=== PATIENT | male | born 1975 | race Caucasian/White ===

== ENCOUNTER 2017-03-19 15:56 | Observation (INO) | payer MEDICARE, OTHER ==
[~2017-03-19 15:56] MED LIST: HUMALOG SQ; LANTUS; LEVE500 PO; OXYCODONE IR; XANA2TAB2 PO
[2017-03-19 19:50] VITALS: BP 128/75; PULSE 64; RESP 20; TEMP 98.7; O2SAT 100
[2017-03-19] MEDS ORDERED: LEVEMIR SQ (20:34)
[2017-03-19 20:45] LABS: CREATINE KINASE 30 U/L (39-308)
[2017-03-19] MEDS ORDERED: INSULIN DETEMIR 100 UNITS/ML VIAL SQ SCH ×2 (21:00→21:16)
[2017-03-19] MEDS ORDERED: levETIRAcetam 500 MG TAB PO SCH (21:14)
[2017-03-19] MEDS ORDERED: ALPRAZolam 1 MG TAB PO PRN (21:15)
[2017-03-19] MEDS ORDERED: GLUCAGON 1 MG/ML VIAL OTHER PRN ×2 (21:30)
[2017-03-19] MEDS ORDERED: DEXTROSE 50% IN WATER 50 ML VIAL(D50) IV PUSH PRN (21:30)
[2017-03-19] MEDS: levETIRAcetam 500 MG TAB PO SCH (21:51)
[2017-03-19] MEDS: ALPRAZolam 1 MG TAB PO PRN (21:53)
[2017-03-19 23:44] VITALS: BP 99/51; PULSE 84; RESP 20; TEMP 98.6; O2SAT 96
[2017-03-20] VITALS (9 sets, daily range): BP systolic 102–144; BP diastolic 72–94; PULSE 69–105; RESP 18–20; TEMP 97.4–98.5; O2SAT 94–97
[2017-03-20] MEDS ORDERED: HIGH DOSE INSULIN NOVOLOG SUPPLEMENTAL SCALE SQ SCH (07:00)
[2017-03-20] MEDS: HIGH DOSE INSULIN NOVOLOG SUPPLEMENTAL SCALE SQ SCH ×2 (07:00→11:00)
[2017-03-20] MEDS: levETIRAcetam 500 MG TAB PO SCH (08:25)
--- NOTE | 2017-03-20 09:09 | HHI.HP ---
HPI Primary Care Physician Non-Staff Chief Complaint Chest pain History of Present Illness Mr. Sanchez is a 41-year-old male patient with a known medical history of seizures, diabetes, hyperlipidemia, pacemaker placement and previous DVT who presented to the ED with complaints of palpitations and diaphoresis. Patient states that he woke up yesterday morning with sudden diaphoresis and feelings of his heart bounding that lasted roughly 2 hours. He states that he also noticed a sharp pain in his chest around the area of his pacemaker which radiated down his left arm with associated numbness in his fingers lasting roughly 45 minutes. Denies any aggravating or relieving factors. Denies any associated nausea. Admits to associated lightheadedness, shortness of breath and pain with breathing. No particular movements or positions make pain better or worse. He does admit to a pacemaker placed in 2014 due to frequent syncopal episodes. At that time patient developed a DVT and was on Coumadin therapy which has now been stopped. Patient currently denies any chest discomfort. No chest pain overnight. Review of Systems HEENT: COMPLAINS OF: Lightheadedness Cardiovascular: COMPLAINS OF: Chest pain, Palpitations Neurologic: COMPLAINS OF: Tingling or numbness (left numbness in fingers) diaphoresis Past Family Social History Allergies: Coded Allergies: Nitroglycerin (Verified Allergy, Unknown, 01/30/17) Vancomycin (Verified Allergy, Unknown, 01/30/17) Past Medical History Seizure disorder, last seizure > 5 years ago. Diabetes, on home insulin therapy. 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 Keppra (Levetiracetam) 500 Mg Tab 500 Mg PO BID Active Ordered Medications Current Medications Medications (Trade) Dose Ordered Sig/Fawad Route Start Time Stop Time Status Last Admin (Xanax) 2 mg Q8H PRN PO 03/19/17 21:30 03/19/17 21:53 (Keppra) 500 mg BID PO 03/19/17 21:00 03/20/17 08:25 (Roxicodone) 30 mg Q4H PRN PO 03/19/17 21:30 03/20/17 06:28 (D50w (Vial) Inj) 50 ml UNSCH PRN IV PUSH 03/19/17 21:30 (Glucagon Inj) 1 mg UNSCH PRN OTHER 03/19/17 21:30 (Levemir Inj) 40 units HS SQ 03/19/17 21:00 03/19/17 21:00 Family History Paternal medical history significant for DC at the age of 3737 years old. Patient' s brother also had an DC at the age of 3535 years old. Social History Denies any current or past tobacco use. Denies any alcohol use. Denies any illicit drug use. Past cardiac testing Had a stress test > 5 years ago. Pacemaker placement 2015 due to frequent syncopal episodes. Physical Exam Vital Signs Vital Signs Date Time Temp Pulse Resp B/P Pulse Ox O2 Delivery O2 Flow Rate FiO2 03/20/17 07:27 97.9 78 18 102/72 97 03/20/17 06:31 81 18 121/91 03/20/17 05:31 75 03/20/17 04:12 98.5 81 20 117/81 03/20/17 03:20 18 03/20/17 02:15 144/94 03/20/17 00:00 105 03/19/17 23:44 98.6 84 20 99/51 96 03/19/17 19:50 98.7 64 20 128/75 100 Physical Exam GENERAL: Alert WN, WD, NAD, pleasant, male HEAD: NC, AT NECK: Supple, no masses, trachea midline CV: Patient rhythm, no murmur, rub, or gallop, no JVD, S1-S2 no S3-S4. RESP: Clear lungs throughout bilateral, no crackles, wheeze, rhonchi, symmetrical chest rise, nonlabored, able to speak in full sentences ABD: Soft, NT, ND, no masses, positive bowel tones EXT: Pulses +24, no dependent edema MS: Normal tone 4 extremities, nontender, no obvious deformities, full range of motion NEURO: CN II through CN XII grossly intact, motor strength 5/5, gait WNL PSYCH: A+O 3, pleasant affect, appropriate speech, appropriate mood and affect , insight and judgment SKIN: Normal turgor, normal texture Laboratory Laboratory Tests Test 03/19/17 20:00 Total Creatine Kinase 30 Troponin I LESS THAN 0.02 Course EKG Sinus rhythm Assessment and Plan Assessment and Plan #1 Atypical chest pain - admitted to chest pain center. Ruled out with 3 sets of EKGs, cardiac enzymes, and monitored overnight. All unremarkable. Seen and evaluated by Dr. Emily Mcconnell. Plan will be to perform a Nuclear ETT today for further evaluation. #2 Diabetes - Will start on sliding scale insulin and cover as needed. #3 Seizure disorder - Resume home medications. Patient is stable at this time and agreeable to plan. Angie Kiran Mar 20, 2017 09:09
--- NOTE | 2017-03-20 09:43 | EKG ---
Date Performed: 03/19/2017 Time Performed: 19:59:26 PTAGE: 41 years EKG: ELECTRONIC ATRIAL PACEMAKER ABNORMAL RHYTHM ECG Since PREVIOUS TRACING , no significant change noted DOCTOR: Emily Mcconnell Interpretating Date/Time 03/20/2017 09:42:38
--- NOTE | 2017-03-20 09:44 | EKG ---
Date Performed: 03/19/2017 Time Performed: 17:06:27 PTAGE: 41 years EKG: ELECTRONIC ATRIAL PACEMAKER ABNORMAL RHYTHM ECG Since PREVIOUS TRACING , no significant change noted DOCTOR: Emily Mcconnell Interpretating Date/Time 03/20/2017 09:43:54
[2017-03-20] MEDS: ALPRAZolam 1 MG TAB PO PRN (11:02)
[2017-03-20] MEDS ORDERED: REGADENOSON INJ 0.4 MG/5 ML SYR ONE (12:34)
--- NOTE | 2017-03-20 14:11 | RADRPT ---
EXAM DATE/TIME: 03/20/2017 11:35 [facility] COMPARISON: CHEST SINGLE AP, March 19, 2017, 14:19. INDICATIONS : Chest pain. Angina. DOSE: 11.0 mCi Tc99m Myoview at stress. 35.0 mCi Tc99m Myoview at rest. 0.4 mg Lexiscan STRESS SYMPTOMS: Dyspnea, chest pain, and facial flush. EJECTION FRACTION: 55 % MEDICAL HISTORY : Diabetes mellitus type 2. SURGICAL HISTORY : Pacemaker. Fusion, lumbar. Fusion, cervical. ENCOUNTER: Initial ACUITY: 1 day PAIN SCALE: 5/10 LOCATION: chest TECHNIQUE: The patient underwent pharmacologic stress with infusion of prescribed dose. Continuous ECG tracing was monitored during stress. Gated SPECT imaging was performed after stress and conventional SPECT i maging was performed at rest. The examination was performed on a SPECT/CT scanner, both attenuation and non-corrected datasets were reviewed. FINDINGS: DISTRIBUTION: The maximum perfused segment at stress is in the inferior wall. PERFUSION STUDY: The pattern of perfusion at stress is within normal limits. No fixed or reversible perfusion defect i s identified. GATED STUDY: There is intact wall motion and thickening without hypokinetic or dyskinetic segments. CONCLUSION: 1. No fixed or reversible perfusion defect is identified in the left ventricle. 2. Normal left ventricle wall motion and ejection fraction. RISK CATEGORY: Low (<1% Annual Mortality Rate) Valdez Rock MD on March 20, 2017 at 14:06 Board Certified Radiologist. This report was verified electronically.
--- NOTE | 2017-03-20 14:30 | HHI.DCPOC ---
Discharge Care Plan Diagnosis: (1) Atypical chest pain (2) Cardiac pacemaker (3) Type 2 diabetes mellitus (4) Heart palpitations Goals to Promote Your Health * To prevent worsening of your condition and complications * To maintain your health at the optimal level Directions to Meet Your Goals Take your medications as prescribed Follow your dietary instruction Follow activity as directed Keep your appointments as scheduled Take your immunizations and boosters as scheduled If your symptoms worsen call your PCP, if no PCP go to Urgent Care Center or Emergency Room Smoking is Dangerous to Your Health. Avoid second hand smoke Call the 24-hour hour crisis hotline for domestic abuse at Angie Kiran Mar 20, 2017 14:30
--- NOTE | 2017-03-20 18:04 | TR ---
Date Performed: 03/20/2017 Time Performed: 12:39:23 DOCTOR: Emily Mcconnell DRUG LIST: CLINICAL HISTORY: REASON FOR TEST: CHEST PAIN REASON FOR ENDING: OBSERVATION: CONCLUSION: Lexiscan stress test was performed under standard four minute protocol. Radionuclid e was injected one minute prior to ending the test. No electrocardiographic abormalities were present to suggest ischemia. Nuclear imaging and interpretation are pending. COMMENTS:
== END 2017-03-20 17:09 | disposition home or self-care (01) ==
LOC: NEDDLT 15:56 → NEPGCP 18:16
PROVIDERS: ADMIT Internal Medicine Cardiovascular Disease; ATTEND Internal Medicine Cardiovascular Disease
DX: R07.89 Other chest pain (principal); E11.9 Type 2 diabetes mellitus without complications; R00.2 Palpitations; R06.02 Shortness of breath; R42 Dizziness and giddiness; R20.0 Anesthesia of skin; G40.909 Epilepsy, unspecified, not intractable, without status epilepticus; E78.5 Hyperlipidemia, unspecified; R94.31 Abnormal electrocardiogram [ECG] [EKG]; G89.29 Other chronic pain; Z95.0 Presence of cardiac pacemaker; Z79.4 Long term (current) use of insulin; Z86.718 Personal history of other venous thrombosis and embolism; Z86.711 Personal history of pulmonary embolism; Z79.899 Other long term (current) drug therapy
CPT/HCPCS: 71010; 78452; 80053; 82550; 82948; 83690; 83735; 83880; 84484; 85025; 85379; 85610; 85730; 93005; 93017; 99285; A9502; G0378; J2785; 99281

== ENCOUNTER 2017-04-07 11:55 | Observation (INO) | payer MEDICARE, OTHER ==
[~2017-04-07] VITALS: Ht 188 cm; Wt 124.0 kg
[~2017-04-07 11:55] MED LIST changes: -LANTUS; +LEVEMIR SQ
[2017-04-07 12:07] VITALS: O2SAT 100
[2017-04-07] MEDS ORDERED: SODIUM CHLORIDE 0.9% FLUSH 10 ML FLUSH IVF PRN (12:15)
--- NOTE | 2017-04-07 12:23 | PD ---
HPI Chief Complaint: Neuro Symptoms/ Deficits Time Seen by Provider: 12:18 Travel History International Travel<30 days: No Contact w/Intl Traveler<30days: No Traveled to known affect area: No History of Present Illness HPI Patient comes in complaining of weakness and tingling in his left upper and lower extremity he awoke with yesterday. Patient denies any headache, chest pain, shortness of breath, nausea, vomiting, abdominal pain, loss change in bowel or bladder, change in vision, lightheadedness, fevers, or previous episodes like this. Patient reports history of seizure and diabetes. Patient was seen approximately an hour ago at [facility] for same complaint however walked out AGAINST MEDICAL ADVICE prior to evaluation being completed. Patient states he did this after getting into an argument with the nurse. Patient states he is unable take aspirin, Tylenol, or NSAIDs at the advice of his GI doctor secondary to his stomach and pancreas. Patient reported a tingling sensation in his left hand and radiates proximally. Patient denies anything making this better or worse. PFSH Past Medical History Heart Rhythm Problems: Yes Cardiac Catheterization: No Cardiovascular Problems: Yes High Cholesterol: No Congestive Heart Failure: No Diabetes: Yes Patient Takes Glucophage: Yes Past Surgical History Coronary Artery Bypass Graft: No Pacemaker: Yes Family History Family Myocardial Infarction: Yes Social History Alcohol Use: No Tobacco Use: No Substance Use: No Allergies-Medications (Allergen,Severity, Reaction): Coded Allergies: nitroglycerin (Unverified Allergy, Unknown, 04/03/17) vancomycin (Unverified Allergy, Unknown, 04/03/17) Reported Meds & Prescriptions Reported Meds & Active Scripts Active Reported Levemir Inj (Insulin Detemir) 1,000 unit/ 10 ML Vial 40 Units SQ HS Do not mix with any other Insulin. [Oxycodone Ir] 30 Mg Q4HR Xanax (Alprazolam) 2 Mg Tab 2 Mg PO Q8H PRN Humalog Inj (Insulin Human Lispro) 1,000 Unit/10 Ml Vial SQ ACHS Max dose at bedtime:( )units; sugars < 70,(0)units; sugars 150-199,(5)units; sugars 200-249,(10)units; sugars 250-299,(15)units; sugars 300-349,(20)units; sugars more than 349,(25)units. Keppra (Levetiracetam) 500 Mg Tab 500 Mg PO BID Review of Systems Except as stated in HPI: all other systems reviewed are Neg Physical Exam Narrative GENERAL: Well-developed, overly nourished, in no acute distress, and non-ill appearing. SKIN: Focused skin assessment warm and dry. HEAD: Atraumatic. Normocephalic. EYES: Pupils equal and round. EOMI. No scleral icterus. No injection or drainage. ENT: No nasal bleeding or discharge. Mucous membranes pink and moist. NECK: Trachea midline. No JVD. Supple. No nuclear rigidity. CARDIOVASCULAR: Regular rate and rhythm. No murmur appreciated. RESPIRATORY: No accessory muscle use. No respiratory distress. Clear to auscultation. Breath sounds equal bilaterally. GASTROINTESTINAL: Abdomen soft, non-tender, nondistended, and no guarding. Hepatic and splenic margins not palpable. Normal bowel sounds 4. No pulsatile mass. MUSCULOSKELETAL: No obvious deformities. No clubbing. No cyanosis. No edema. Full range of motion. Shoulder:FROM equal BL with passive flexion, extension, Abduction, Adduction, internal/external rotation, and pronation/supination. Sensation BL deltoid muscles, patient reports decreased on the left compared to right. Pulses equal BL distal to injury. Capillary refill less than 2 seconds distal to injury and equal BL. FROM distal to injury and equal BL. Strength distal to injury equal BL. NV intact distal to injury equal BL. Flexion and extension of thumb equal BL. Equal strength and movement with abduction/ adductions of BL fingers. [employer] strength equal BL, the patient reports pain with gripping of the left hand. Plantar and dorsiflexion 5 out of 5 and equal bilaterally. Patient reports sensation intact or first web space and bilateral lower extremity but reports sensation is slightly decreased on the left compared to the right. NEUROLOGICAL: Awake and alert. No obvious cranial nerve deficits. Motor grossly within normal limits. Normal speech. No facial drooping. No deviation of the tongue. Smiles equal bilaterally. Equal rise and fall the eyebrows. No pronator drift. PSYCHIATRIC: Appropriate mood and affect; insight and judgment normal. Data Data Last Documented VS Vital Signs Date Time Temp Pulse Resp B/P Pulse Ox O2 Delivery O2 Flow Rate FiO2 04/07/17 12:30 97.6 78 16 123/87 97 Room Air Orders Electrocardiogram (04/07/17 12:11) Prothrombin Time / Inr (Pt) (04/07/17 12:11) Act Partial Throm Time (Ptt) (04/07/17 12:11) Complete Blood Count With Diff (04/07/17 12:11) Basic Metabolic Panel (Bmp) (04/07/17 12:11) Creatine Kinase (Cpk) (04/07/17 12:11) Troponin I (04/07/17 12:11) Ct Brain W/O Iv Contrast(Rout) (04/07/17 12:11) Ecg Monitoring (04/07/17 12:11) Iv Access Insert/Monitor (04/07/17 12:11) Oximetry (04/07/17 12:11) Sodium Chloride 0.9% Flush (Ns Flush) (04/07/17 12:15) Drug Screen, Random Urine (04/07/17 12:18) Vascular Access Team Consult/P PRN (04/07/17 12:35) Vascular Poc Ultrasound (04/07/17 ) Morphine Inj (Morphine Inj) (04/07/17 15:15) Ondansetron Inj (Zofran Inj) (04/07/17 15:15) Admit Order (Ed Use Only) (04/07/17 15:09) Labs Laboratory Tests Test 04/07/17 04/07/17 12:55 13:50 White Blood Count 7.0 TH/MM3 Red Blood Count 5.18 MIL/MM3 Hemoglobin 14.1 GM/DL Hematocrit 41.7 % Mean Corpuscular Volume 80.4 FL Mean Corpuscular Hemoglobin 27.1 PG Mean Corpuscular Hemoglobin 33.7 % Concent Red Cell Distribution Width 13.6 % Platelet Count 297 TH/MM3 Mean Platelet Volume 6.5 FL Neutrophils (%) (Auto) 62.4 % Lymphocytes (%) (Auto) 29.2 % Monocytes (%) (Auto) 6.6 % Eosinophils (%) (Auto) 1.3 % Basophils (%) (Auto) 0.5 % Neutrophils # (Auto) 4.4 TH/MM3 Lymphocytes # (Auto) 2.0 TH/MM3 Monocytes # (Auto) 0.5 TH/MM3 Eosinophils # (Auto) 0.1 TH/MM3 Basophils # (Auto) 0.0 TH/MM3 CBC Comment DIFF FINAL Differential Comment Prothrombin Time 10.4 SEC Prothromb Time International 0.9 RATIO Ratio Activated Partial 28.2 SEC Thromboplast Time Sodium Level 135 MEQ/L Potassium Level 3.8 MEQ/L Chloride Level 102 MEQ/L Carbon Dioxide Level 24.4 MEQ/L Anion Gap 9 MEQ/L Blood Urea Nitrogen 15 MG/DL Creatinine 0.75 MG/DL Estimat Glomerular Filtration 114 ML/MIN Rate Random Glucose 233 MG/DL Calcium Level 8.7 MG/DL Total Creatine Kinase 46 U/L Troponin I LESS THAN 0.02 NG/ML Urine Opiates Screen NEG Urine Barbiturates Screen NEG Urine Amphetamines Screen NEG Urine Benzodiazepines Screen POS Urine Cocaine Screen NEG Urine Cannabinoids Screen NEG MDM Medical Decision Making Medical Screen Exam Complete: Yes Emergency Medical Condition: Yes Interpretation(s) EKG reviewed by Dr. Nicole shows normal sinus rhythm with ventricular rate of 84. No STEMI. CT head read by the radiologist shows: No acute intracranial abnormality. Differential Diagnosis CVA, TIA, weakness, electrolyte abnormality, other Narrative Course Patient seen and examined. IV was established. Patient was placed on his quality assurance monitor chassis. Initial laboratory and radiological studies were ordered. Patient's [place] E force was reviewed shows patient receiving multiple controlled substances from multiple providers over the past several months. January patient received 268 oxycodone, 90 Adderall, 37, and 60 Xanax. February patient received 250 oxycodone, 90 Adderall, and 120 Xanax. In March patient' s has so far been reported to the E force 90 oxycodone and 30 Xanax. Discussed all findings and plan care of patient, who is agreeable for admission. All questions were answered. Discussed patient with Dr. Nicole, who is in agreement with plan of care and disposition. Discussed patient with hospitalist who is agreeable to admit the patient. Patient remained stable throughout ED course. Physician Communication Physician Communication [phone] Hand, who is agreeable to admit the patient. Diagnosis Primary Impression: Left-sided weakness Admitting Information Admitting Physician Requests: Admit Condition: Stable Jose D Martinez Apr 07, 2017 12:23
[2017-04-07 12:30] VITALS: BP 123/87; PULSE 78; RESP 16; TEMP 97.6; O2SAT 97
[2017-04-07 13:10] LABS: AUTOMATED NEUTROPHIL # 4.4 TH/MM3 (1.8-7.7); BASOPHIL % 0.5 % (0.0-2.0); EOSINOPHIL # 0.1 TH/MM3 (0-0.4); EOSINOPHIL % 1.3 % (0.0-4.0); HEMATOCRIT 41.7 % (39.0-51.0); HEMO FLAGS DIFF FINAL; LYMPH % 29.2 % (9.0-44.0); MEAN CELL VOLUME 80.4 FL (80.0-100.0); MEAN CORPUSCULAR HEMOGLOBIN 27.1 PG (27.0-34.0); MEAN CORPUSCULAR HGB CONC 33.7 % (32.0-36.0); MONO % 6.6 % (0.0-8.0); NEUT % 62.4 % (16.0-70.0); PLATELET COUNT 297 TH/MM3 (150-450); RED BLOOD COUNT 5.18 MIL/MM3 (4.50-5.90); RED CELL DISTRIBUTION WIDTH 13.6 % (11.6-17.2)
[2017-04-07 13:17] LABS: APTT (PATIENT) 28.2 SEC (24.3-30.1); INTERNATIONAL NORMALIZED RATIO 0.9 RATIO; PROTHROMBIN TIME - PATIENT 10.4 SEC (9.8-11.6)
[2017-04-07 13:24] LABS: ANION GAP 9 MEQ/L (5-15); BICARBONATE 24.4 MEQ/L (21.0-32.0); BLOOD UREA NITROGEN 15 MG/DL (7-18); CHLORIDE 102 MEQ/L (98-107); GLOMERULAR FILTRATION RATE 114 ML/MIN (>89); POTASSIUM 3.8 MEQ/L (3.5-5.1); SODIUM (NA) 135 MEQ/L (136-145)
[2017-04-07 13:29] LABS: CREATINE KINASE 46 U/L (39-308)
--- NOTE | 2017-04-07 14:21 | RADRPT ---
EXAM DATE/TIME: 04/07/2017 14:12 [facility] COMPARISON: No previous studies available for comparison. INDICATIONS : Left upper and lower extremity tingling and weakness since yesterday RADIATION DOSE: 37.76 CTDIvol (mGy) MEDICAL HISTORY : Cardiovascular disease. Diabetes mellitus type 1. SURGICAL HISTORY : None. ENCOUNTER: Initial ACUITY: 2 days PAIN SCALE: 0/10 LOCATION: cranial TECHNIQUE: Multiple contiguous axial images were obtained of the head. Using automated exposure control and adj ustment of the mA and/or kV according to patient size, radiation dose was kept as low as reasonably a chievable to obtain optimal diagnostic quality images. DICOM format image data is available electro nically for review and comparison. FINDINGS: CEREBRUM: The ventricles are are slightly asymmetric but still within normal limits. No evidence of midline sh ift, mass lesion, hemorrhage or acute infarction. No extra-axial fluid collections are seen. POSTERIOR FOSSA: The cerebellum and brainstem are intact. The 4th ventricle is midline. The cerebellopontine angle i s unremarkable. EXTRACRANIAL: The visualized portion of the orbits is intact. SKULL: The calvaria is intact. No evidence of skull fracture. CONCLUSION: No acute intracranial abnormality. Leon Qureshi MD on April 07, 2017 at 14:19 Board Certified Radiologist. This report was verified electronically.
[2017-04-07] MEDS ORDERED: ONDANSETRON HCL 4 MG/2 ML VIAL IV PUSH ONE (15:15)
[2017-04-07] MEDS ORDERED: MORPHINE SULFATE 4 MG/ML INJ IV PUSH ONE (15:15)
[2017-04-07] MEDS ORDERED: BISACODYL 10 MG SUPP RECTAL PRN (15:30)
[2017-04-07] MEDS ORDERED: MORPHINE SULFATE 4 MG/ML INJ IV PRN (15:30)
[2017-04-07] MEDS ORDERED: NALOXONE HCL 0.4 MG/ML AMP IV PRN (15:30)
[2017-04-07] MEDS ORDERED: HYDROmorphone HCL PF 1 MG/ML VIAL IV PRN (15:30)
[2017-04-07] MEDS ORDERED: DEXTROSE 50% IN WATER 50 ML VIAL(D50) IV PUSH PRN (15:30)
[2017-04-07] MEDS ORDERED: ACETAMINOPHEN 325 MG TAB PO PRN (15:30)
[2017-04-07] MEDS ORDERED: PROCHLORPERAZINE 25 MG SUPP RECTAL PRN (15:30)
[2017-04-07] MEDS ORDERED: GLUCAGON 1 MG/ML VIAL OTHER PRN ×2 (15:30)
[2017-04-07] MEDS ORDERED: LACTULOSE SYRUP 20 GM/30 ML CUP PO PRN (15:30)
[2017-04-07] MEDS ORDERED: SODIUM CHLORIDE 0.9% FLUSH 5 ML FLUSH IV FLUSH PRN (15:30)
[2017-04-07] MEDS ORDERED: SENNOSIDES 8.6 MG TAB PO PRN (15:30)
[2017-04-07] MEDS ORDERED: ONDANSETRON HCL 4 MG/2 ML VIAL IVP PRN (15:30)
[2017-04-07] MEDS ORDERED: DEXTROSE 50% IN WATER 50 ML VIAL(D50) IV PRN (15:30)
[2017-04-07] MEDS: ENOXAPARIN SODIUM 40 MG/0.4 ML SYRINGE SQ SCH (15:30)
[2017-04-07] MEDS ORDERED: SODIUM CHLORIDE 0.9% FLUSH 10 ML FLUSH IV FLUSH PRN (15:30)
[2017-04-07] MEDS ORDERED: MAGNESIUM HYDROXIDE SUSP 30 ML CUP PO PRN (15:30)
[2017-04-07] MEDS: INSULIN ASPART SUPPLEMENTAL SCALE SQ SCH ×2 (16:00→21:00)
--- NOTE | 2017-04-07 16:11 | HHI.HP ---
HPI Service [facility] Hospitalists Primary Care Physician Non-Staff Admission Diagnosis left-sided weakness r/o CVA Diagnoses: (1) Left-sided weakness Diagnosis: Principal (2) Weakness Diagnosis: Principal (3) Cardiac pacemaker Diagnosis: Secondary (4) Heart palpitations Diagnosis: Secondary (5) Type 2 diabetes mellitus Diagnosis: Secondary (6) Atypical chest pain Diagnosis: Secondary (7) Back pain, chronic Diagnosis: Secondary Chief Complaint: Left-sided numbness/tingling and weakness Travel History International Travel<30 Days: No Contact w/Intl Traveler <30 Da: No Traveled to Known Affected Are: No History of Present Illness This is a 42-year-old male with a past medical history significant for degenerative disc disease of cervical and lumbar spine status post previous fusions, seizure disorder, diabetes, pancreatitis, dyslipidemia and history of pacemaker implantation in 2014 with complication of a PE/DVT who presents to [facility] ED with complaints of sudden onset of left upper and lower extremity weakness with numbness and tingling since yesterday morning. Patient states that his symptoms have been progressive prompting him to come in to the ED. He was seen in the [place] ED earlier today but left AGAINST MEDICAL ADVICE. Patient denies any associated headache, dizziness, lightheadedness, presyncope/syncopal episode, diaphoresis or vision changes. He denies any facial droop or slurred speech. He states his last seizure was 5-6 years ago. He denies any bowel or bladder incontinence. Patient states he is unable to take any NSAID or Tylenol as advised by his GI physician secondary to pancreas and stomach issues. Patient denies any recent illness. He denies any fever or chills. He denies any chest pain or shortness of breath. He denies any nausea , vomiting or abdominal pain. He denies any complaints of constipation, diarrhea, dysuria or hematuria. He does report he had some palpitations for one day last week that resolved on their own. EKG done in [place] showed normal sinus rhythm with no evidence of STEMI or ischemia. CT of the head was obtained which showed no acute intracranial abnormality. Per ED note, patient' s E force revealed patients receiving multiple controlled substances from multiple providers. In January he received 268 oxycodone, 90 Adderall and 60 Xanax. In February patient received 250 oxycodone, 90 Adderall and 120 Xanax. So far in March, patient has received 90 oxycodone and 30 Xanax. Additionally, patient informs me that he had a recent rotator cuff repair surgery with concomitant bone biopsy for suspicious lesion and was recently told that he has cancer. He has a follow-up appointment with his oncologist next week in [place]. Going around to multiple hospitals in the [facility] as well as now appears to be [facility] also. Patient had chronic neck issues and is had shoulder surgery as well as back surgery which might explain some of this numbness Review of Systems Constitutional: DENIES: Diaphoretic episodes, Fatigue, Fever, Weight gain, Weight loss, Chills, Dizziness, Change in appetite Endocrine: DENIES: Heat/cold intolerance, Polydipsia, Polyuria Eyes: DENIES: Blurred vision, Diplopia, Eye inflammation, Eye pain, Vision loss Ears, nose, mouth, throat: DENIES: Tinnitus, Hearing loss, Vertigo, Nasal discharge, Oral lesions Respiratory: DENIES: Apneas, Cough, Snoring, Wheezing, Hemoptysis Cardiovascular: COMPLAINS OF: Chest pain, DENIES: Palpitations, Syncope, Dyspnea on Exertion, PND, Lower Extremity Edema Gastrointestinal: DENIES: Abdominal pain, Black stools, Bloody stools, Constipation, Diarrhea Genitourinary: DENIES: Sexual dysfunction, Urinary frequency Musculoskeletal: COMPLAINS OF: Joint pain, Joint Swelling, Back pain, Neck pain , DENIES: Muscle aches, Stiffness Integumentary: DENIES: Abnormal pigmentation, Nail changes Hematologic/lymphatic: DENIES: Bruising, Lymphadenopathy Immunologic/allergic: DENIES: Eczema, Urticaria Neurologic: COMPLAINS OF: Localized weakness (left side), Paresthesias, Seizures, DENIES: Abnormal gait, Headache, Speech Problems, Tremor, Poor Balance Psychiatric: COMPLAINS OF: Agitation, DENIES: Anxiety, Confusion, Mood changes , Depression, Hallucinations, Suicidal Ideation, Homicidal Ideation Except as stated in HPI: all other systems reviewed are Neg Past Family Social History Past Medical History Hyperlipidemia Seizure disorder DM Pancreatitis Previous pacemaker implantation for heart arrhythmia 2014 H/O DVT/PE s/p pacemaker implantation Past Surgical History Cervical and lumbar fusion Pacemaker implantation 2014 RCR with bone biopsy revealing newly dx'd cancer ppr Shoulder surgery recently Cholecystectomy Reported Medications Levemir Inj (Insulin Detemir) 1,000 unit/ 10 ML Vial 40 Units SQ HS Do not mix with any other Insulin. [Oxycodone Ir] 30 Mg Q4HR Xanax (Alprazolam) 2 Mg Tab 2 Mg PO Q8H PRN Humalog Inj (Insulin Human Lispro) 1,000 Unit/10 Ml Vial SQ ACHS Max dose at bedtime:( )units; sugars < 70,(0)units; sugars 150-199,(5)units; sugars 200-249,(10)units; sugars 250-299,(15)units; sugars 300-349,(20)units; sugars more than 349,(25)units. Keppra (Levetiracetam) 500 Mg Tab 500 Mg PO BID Allergies: Coded Allergies: nitroglycerin (Unverified Allergy, Unknown, 04/03/17) vancomycin (Unverified Allergy, Unknown, 04/03/17) Active Ordered Medications Current Medications Medications (Trade) Dose Ordered Sig/Fawad Route Start Time Stop Time Status Last Admin Reported Meds & Active Scripts Active Reported Oxycodone (Oxycodone HCl) 30 Mg Tab 30 Mg PO Q4HR PRN Levemir Inj (Insulin Detemir) 1,000 unit/ 10 ML Vial 40 Units SQ HS Do not mix with any other Insulin. Xanax (Alprazolam) 2 Mg Tab 2 Mg PO Q8H PRN Humalog Inj (Insulin Human Lispro) 1,000 Unit/10 Ml Vial SQ ACHS Max dose at bedtime:( )units; sugars < 70,(0)units; sugars 150-199,(5)units; sugars 200-249,(10)units; sugars 250-299,(15)units; sugars 300-349,(20)units; sugars more than 349,(25)units. Keppra (Levetiracetam) 500 Mg Tab 500 Mg PO BID (NS Flush) 2 ml UNSCH PRN IVF 04/07/17 12:15 (D50w (Vial) Inj) 50 ml UNSCH PRN IV 04/07/17 15:30 (Glucagon Inj) 1 mg UNSCH PRN OTHER 04/07/17 15:30 (NS Flush) 2 ml BID IV FLUSH 04/07/17 21:00 (NS Flush) 2 ml UNSCH PRN IV FLUSH 04/07/17 15:30 (Aspirin) 325 mg DAILY PO 04/07/17 15:30 04/07/17 16:40 (Lipitor) 20 mg HS PO 04/07/17 21:00 (D50w (Vial) Inj) 50 ml UNSCH PRN IV PUSH 04/07/17 15:30 (Glucagon Inj) 1 mg UNSCH PRN OTHER 04/07/17 15:30 (Lovenox Inj) 40 mg Q24H SQ 04/07/17 15:30 (NS Flush) 2 ml UNSCH PRN IV FLUSH 04/07/17 15:30 (NS Flush) 2 ml BID IV FLUSH 04/07/17 21:00 (Zofran Inj) 4 mg Q6H PRN IVP 04/07/17 15:30 (Compazine Supp) 25 mg Q12H PRN RECTAL 04/07/17 15:30 (Tylenol) 650 mg Q6H PRN PO 04/07/17 15:30 (Roxicodone) 10 mg Q4H PRN PO 04/07/17 15:30 04/07/17 16:39 (Morphine Inj) 4 mg Q3H PRN IV 04/07/17 15:30 (Dilaudid Pf Inj) 0.5 mg Q3H PRN IV 04/07/17 15:30 (Roxicodone) 5 mg Q4H PRN PO 04/07/17 15:30 (Narcan Inj) 0.4 mg UNSCH PRN IV 04/07/17 15:30 (Bridgett-Colace) 1 tab BID PO 04/07/17 21:00 (Milk Of Magnesia Liq) 30 ml Q12H PRN PO 04/07/17 15:30 (Senokot) 17.2 mg Q12H PRN PO 04/07/17 15:30 (Dulcolax Supp) 10 mg DAILY PRN RECTAL 04/07/17 15:30 (Lactulose Liq) 30 ml DAILY PRN PO 04/07/17 15:30 (Xanax) 2 mg Q8H PRN PO 04/07/17 16:30 (Levemir Inj) 40 units HS SQ 04/07/17 21:00 (Keppra) 500 mg BID PO 04/07/17 21:00 Family History CAD - Mother . Father, alive, [place] before age 40. Brother, alive, [place] before age 40 DM Social History Patient denies any tobacco use, EtOH consumption or illicit drug use Physical Exam Vital Signs Vital Signs Date Time Temp Pulse Resp B/P Pulse Ox O2 Delivery O2 Flow Rate FiO2 04/07/17 12:30 97.6 78 16 123/87 97 Room Air 04/07/17 12:07 100 Room Air Physical Exam GENERAL: This is a well-nourished, well-developed patient, in no apparent distress. Awake and alert. Appears comfortable. SKIN: No rashes, ecchymoses or lesions. Cool and dry. Subjective decreased sensation left side of face. No facial droop appreciated. Multiple tattoos HEAD: Atraumatic. Normocephalic. No temporal or scalp tenderness. EYES: Pupils equal round and reactive. Extraocular motions intact. No scleral icterus. No injection or drainage. Tongue is midline ENT: Nose without bleeding or purulent drainage. Throat without erythema, tonsillar hypertrophy or exudate. Uvula midline. Airway patent. Tongue is midline NECK: Trachea midline. No lymphadenopathy. Supple, nontender, no meningeal signs. CARDIOVASCULAR: Regular rate and rhythm without murmurs, gallops, or rubs. S1- S2 no S3 or S4 no heave or thrill RESPIRATORY: Clear to auscultation. Breath sounds equal bilaterally. No wheezes , rales, or rhonchi. GASTROINTESTINAL: Abdomen soft, non-tender, nondistended. No hepato-splenomegaly , or palpable masses. No guarding. MUSCULOSKELETAL: Extremities without clubbing, cyanosis, or edema. No joint tenderness, effusion, or edema noted. No calf tenderness. NEUROLOGICAL: Awake and alert. Slightly weak left upper and lower extremity motor function in comparison to right. Subjective sensation decreased to light touch in left upper and lower extremity. Normal speech. Insight and judgment poor mood and behavior is somewhat appropriate Laboratory Laboratory Tests Test 04/07/17 04/07/17 12:55 13:50 White Blood Count 7.0 Red Blood Count 5.18 Hemoglobin 14.1 Hematocrit 41.7 Mean Corpuscular Volume 80.4 Mean Corpuscular Hemoglobin 27.1 Mean Corpuscular Hemoglobin 33.7 Concent Red Cell Distribution Width 13.6 Platelet Count 297 Mean Platelet Volume 6.5 Neutrophils (%) (Auto) 62.4 Lymphocytes (%) (Auto) 29.2 Monocytes (%) (Auto) 6.6 Eosinophils (%) (Auto) 1.3 Basophils (%) (Auto) 0.5 Neutrophils # (Auto) 4.4 Lymphocytes # (Auto) 2.0 Monocytes # (Auto) 0.5 Eosinophils # (Auto) 0.1 Basophils # (Auto) 0.0 CBC Comment DIFF FINAL Differential Comment Prothrombin Time 10.4 Prothromb Time International 0.9 Ratio Activated Partial 28.2 Thromboplast Time Sodium Level 135 Potassium Level 3.8 Chloride Level 102 Carbon Dioxide Level 24.4 Anion Gap 9 Blood Urea Nitrogen 15 Creatinine 0.75 Estimat Glomerular Filtration 114 Rate Random Glucose 233 Calcium Level 8.7 Total Creatine Kinase 46 Troponin I LESS THAN 0.02 Urine Opiates Screen NEG Urine Barbiturates Screen NEG Urine Amphetamines Screen NEG Urine Benzodiazepines Screen POS Urine Cocaine Screen NEG Urine Cannabinoids Screen NEG Result Diagram: 04/07/17 1255 04/07/17 1255 Imaging Last Impressions Head CT 04/07/17 1211 Signed Impressions: Service Date/Time: Friday, April 07, 2017 14:12 - CONCLUSION: No acute intracranial abnormality. Leon Qureshi MD Assessment and Plan Problem List: (1) Seizure ICD Code: R56.9 Status: Acute (2) Diabetes ICD Code: E11.9 Status: Acute (3) Back pain, chronic ICD Code: M54.9 Status: Acute (4) Weakness ICD Code: R53.1 Status: Acute (5) Left-sided weakness ICD Code: R53.1 Status: Acute (6) Cardiac pacemaker ICD Code: Z95.0 Status: Acute (7) Heart palpitations ICD Code: R00.2 Status: Acute (8) Type 2 diabetes mellitus ICD Code: E11.9 Status: Acute (9) Atypical chest pain ICD Code: R07.89 Status: Acute Assessment and Plan 42-year-old male with a past medical history significant for degenerative disc disease of cervical and lumbar spine status post previous fusions, seizure disorder, diabetes, pancreatitis, dyslipidemia and history of pacemaker implantation in 2014 with complication of a PE/DVT who presents to [facility] ED with complaints of sudden onset of left upper and lower extremity weakness with numbness and tingling since yesterday morning. Left upper and lower extremity weakness with numbness and tingling Possible TIA/CVA Initial CT of the head personally reviewed and shows no evidence of acute intracranial abnormality Unable to obtain MRI study secondary to patient's pacemaker implantation Will repeat CT scan tomorrow Consult neurology Carotid ultrasound Obtain 2D echocardiogram Neuro checks q2hx12 then q4h Obtain thyroid studies and hemoglobin A1c PT/OT eval/tx Speech therapy consult for swallow evaluation Cycle cardiac enzymes - initial troponin less than 0.02 Obtain fasting lipid panel Lipitor 20 mg daily Aspirin 325 mg daily Continuous cardiac monitoring DM Random glucose 233 Resume patient's home dose of long acting insulin Obtain A1c Accu-Cheks Insulin sliding scale Diabetic diet Hyponatremia Mild am labs to monitor trend H/O Pacemaker implantation for arrhythmia Strong FMHX of CAD/LA initial troponin negative recent stress test 03/20/17 negative for ischemia monitor Seizure disorder No history of seizure for the past 5-6 years per patient report Continue home dose of Keppra Recent RCR with bone biopsy revealing newly dx'd cancer ppr patient to keep previously scheduled appt with oncologist in [place] DVT prophylaxis Lovenox 40 mg subcutaneous Bilateral SCD/ALEJANDRO hose Discussed with patient and Dr. Hand The exam, history, and the medical decision-making described in the above note were completed with the assistance of the mid-level provider. I reviewed and agree with the findings presented. I attest that I had a [id number] encounter with the patient on the same day, and personally performed and documented my assessment and findings in the medical record. Code Status Full code Discussed Condition With Discussed with patient, ER, and physician's assistant vice president and patient Julia Head Apr 07, 2017 16:11 Darvin Hand DO Apr 07, 2017 17:33
[2017-04-07] MEDS: ASPIRIN 325 MG TAB PO SCH (16:40)
[2017-04-07 16:42] VITALS: BP 124/84; PULSE 78; RESP 16; O2SAT 97
[2017-04-07] MEDS ORDERED: OXYC30TA PO (16:55)
[2017-04-07 17:31] VITALS: BP 126/65; PULSE 64; RESP 18; TEMP 97.8; O2SAT 99
[2017-04-07] MEDS: DOCUSATE SODIUM 50 MG/SENNA 8.6 MG TAB PO SCH (21:00)
[2017-04-07] MEDS: INSULIN DETEMIR 100 UNITS/ML VIAL SQ SCH (21:00)
[2017-04-07] MEDS: SODIUM CHLORIDE 0.9% FLUSH 5 ML FLUSH IV FLUSH SCH (21:00)
[2017-04-07] MEDS: SODIUM CHLORIDE 0.9% FLUSH 10 ML FLUSH IV FLUSH SCH (21:00)
--- NOTE | 2017-04-07 21:07 | MB ---
cc: MARY JANE CLARK DATE OF CONSULTATION 04/07/17 HISTORY OF PRESENT ILLNESS A 42-year-old right-handed man with hypertension, insulin dependent diabetes, hypercholesterolemia, [place], pacemaker in 2014 at [facility]. Left shoulder, possible bone cancer. PE after his pacemaker which he was on Coumadin for awhile. He does not take any blood thinners. He has had some pancreatitis in the past and was told not to take it due to that. Nevertheless, he has a history of seizures, also. No grand mal seizures in the last 5 years, although, he did wake up yesterday morning with left-sided numbness and had bitten his lip on the left side, otherwise, he has not woken up wet the bed or bit his tongue. He has had seizures since 9 years old but no grand mal seizures in 5 years on the Keppra. No headache or chest pains but he has had some racing of his heart. He had the pacemaker in but does not follow with cardiology. He had a stress test done by Dr. Mcconnell on 03/20/17, showed normal ejection fraction, a normal stress test. He was in the hospital here on March 20 with palpitations, diaphoresis, heart was pounding, sharp pain in his chest around the pacemaker. She noted he had a history of syncopal episodes. He was on Xanax, insulin, Keppra 500 b.i.d. and oxycodone at that time. ALLERGIES ALLERGIC TO NITROGLYCERIN, VANCOMYCIN. REVIEW OF SYSTEMS He denied any history of known a-fib, CABG, stent, renal, hepatic or pulmonary disease, thyroid disease, lupus, ulcer, known stroke. SOCIAL HISTORY Not a smoker or drinker. He lives with his father. FAMILY HISTORY His family history is positive for cancer. Negative for seizure. Positive for stroke in his father at 37, his brother at 40. His brother also had blood clots and the patient himself had DVTs. PHYSICAL EXAMINATION On exam had been noted to be in sinus rhythm according to the nurse on telemetry. VITAL SIGNS: Afebrile, 64, 18. EKG in the ER does shows sinus rhythm. 126/65. NECK: There were no carotid bruits. HEART: Regular rhythm. I did not detect a murmur. NEURO: Pupils are equal. Visual arizmendi appear to have decreased visual acuity on the lateral inferior quadrant bilaterally. Extraocular movements intact without nystagmus. Face is symmetric with decreased sensation on the left to pinprick compared to the right. Tongue was midline. There is no drift. He had normal strength in upper and lower extremities bilaterally. DTRs are 2+ symmetric throughout. Toes are downgoing bilaterally. Pinprick was absent or severely diminished on the left arm and leg and face compared to the right. He is not ataxic on [id number]. Speech is fluent. He is not aphasic. Not a great historian. LABORATORY DATA CBC is normal. Urine drug screen positive for benzos. UA shows a lot of glucose in January of this year. Basic metabolic profile he was normal. Troponin, CPK negative. CBC normal. IMAGING STUDIES CT scan of the brain is negative today. IMPRESSION Looks like he has had definitely a stroke. I am just going to put him on aspirin for now. Will need his pacemaker interrogated for any a-fib. I will check a CTA of the neck and chipewwa of Garcia. He has vision changes but he could have some diabetic retinopathy he does not know about, is unclear, if he had occipital lobe infarct. His pacemaker maybe MRI compatible. Will have to see that by getting the records from [facility]. We will check his LDL also. He is on a statin here. Certainly he could be hypercoagulable with the history of DVT, a strong history for stroke and blood clots in the family and also if he could possibly have cancer now. Will check a hypercoag screen on him. MD GALA Lopez/ALEKSANDR /8:17 PM /8:47 PM
[2017-04-07 21:14] VITALS: BP 147/93; PULSE 77; RESP 18; TEMP 98.6; O2SAT 100
[2017-04-07 21:14] LABS: CREATINE KINASE 44 U/L (39-308)
[2017-04-07] MEDS: ATORVASTATIN 10 MG TAB PO SCH (21:14)
[2017-04-07] MEDS: levETIRAcetam 500 MG TAB PO SCH (21:14)
[2017-04-07 21:21] VITALS: PULSE 77
[2017-04-07] MEDS: SODIUM CHLOR 0.9% 1000 ML INJ 1,000 ML IV SCH (21:41)
--- NOTE | 2017-04-07 22:35 | RADRPT ---
EXAM DATE/TIME: 04/07/2017 22:02 [facility] COMPARISON: No previous studies available for comparison. INDICATIONS : Transient ischemic attack. MEDICAL HISTORY : Cardiovascular disease. Diabetes mellitus type 1. SURGICAL HISTORY : None. ENCOUNTER: Initial ACUITY: 1 day PAIN SCORE: 10 LOCATION: Bilateral neck PEAK SYSTOLIC VELOCITIES (cm/sec): ICA/CCA RATIO: Right: 1.1 Left: 1.1 ICA: Right: 79.0 Left: 85.3 CCA: Right: 72.4 Left: 74.6 ECA: Right: 87.9 Left: 76.5 VERTEBRAL: Right: 44.9 antegrade Left: 46.8 antegrade Elevated flow velocities and ICA/CCA ratios have been found to correlate with increased degrees of vessel stenosis, calculated as percentage of diameter relative to a normal segment of distal ICA/CCA FINDINGS: Antegrade flow is seen in both vertebral arteries. There is mild atherosclerotic plaquing at the orig in of both ICAs without any significant stenosis. CONCLUSION: No evidence for hemodynamically significant stenosis. Dinah Muñoz MD on April 07, 2017 at 22:34 Board Certified Radiologist. This report was verified electronically.
[2017-04-07] MEDS ORDERED: IOHEXOL 350 MG/ML 10 ML VIAL (for RAD DIAG) IV ONE (22:44)
--- NOTE | 2017-04-07 23:08 | RADRPT ---
EXAM DATE/TIME: 04/07/2017 22:35 [facility] COMPARISON: No previous studies available for comparison. INDICATIONS : Left sided weakness. IV CONTRAST: 100 cc Omnipaque 350 (iohexol) IV ; Cumulative dose for multiple exams. RADIATION DOSE: 15.51 CTDIvol (mGy) ; Combined studies MEDICAL HISTORY : Cardiovascular disease. Seizures. Diabetes mellitus type 1. SURGICAL HISTORY : Pacemaker. cervical fusion ENCOUNTER: Subsequent ACUITY: 1 day PAIN SCALE: 0/10 LOCATION: cranial TECHNIQUE: Volumetric scanning was performed using a multi-row detector CT scanner. The data was post processed with a variety of visualization algorithms including full volume maximum intensity projection, multi -planar sliding thin slab reformation, curved planar reformation, and surface rendering techniques. Using automated exposure control and adjustment of the mA and/or kV according to patient size, radiat ion dose was kept as low as reasonably achievable to obtain optimal diagnostic quality images. DICO M format image data is available electronically for review and comparison. FINDINGS: There is excellent visualization of the major intracranial arteries out to the second-order branch ve ssels. There is no evidence for aneurysm, vessel truncation or stenosis, and no evidence for vascula r malformation. Patient is left vertebral dominant. CONCLUSION: Intracranial vessels are all patent without aneurysmal disease. Kris Moise MD on April 07, 2017 at 23:02 Board Certified Radiologist. This report was verified electronically.
--- NOTE | 2017-04-07 23:12 | RADRPT ---
EXAM DATE/TIME: 04/07/2017 22:35 [facility] COMPARISON: No previous studies available for comparison. INDICATIONS : Left sided weakness. IV CONTRAST: 100 cc Omnipaque 350 (iohexol) IV ; Cumulative dose for multiple exams. RADIATION DOSE: 15.51 CTDIvol (mGy) ; Combined studies MEDICAL HISTORY : Cardiovascular disease. Seizures. Diabetes mellitus type 1. SURGICAL HISTORY : Pacemaker. cervical fusion ENCOUNTER: Subsequent ACUITY: 1 day PAIN SCALE: 0/10 LOCATION: neck Elevated flow velocities and ICA/CCA ratios have been found to correlate with increased degrees of vessel stenosis, calculated as percentage of diameter relative to a normal segment of distal ICA/CCA. TECHNIQUE: Volumetric scanning was performed using a multirow detector CT scanner. The data was post processed with a variety of visualization algorithms including full-volume maximum intensity projection, multip lanar sliding thin-slab reformation, curved-planar reformation, and surface-rendering techniques. Us ing automated exposure control and adjustment of the mA and/or kV according to patient size, radiatio n dose was kept as low as reasonably achievable to obtain optimal diagnostic quality images. DICOM f ormat image data is available electronically for review and comparison. FINDINGS: AORTIC ARCH: Bovine arch. Arch vessels are all patent RIGHT CAROTID: The common carotid artery is intact. The carotid bulb has a normal configuration without ulceration o r narrowing. The internal carotid artery lumen is smooth without stenosis. The external carotid marvel ry is intact. LEFT CAROTID: The common carotid artery is intact. The carotid bulb has a normal configuration without ulceration or narrowing. The internal carotid artery lumen is smooth without stenosis. The external carotid ar nahomi is intact. VERTEBRALS: Patient is left vertebral dominant. No stenotic lesions are seen. CONCLUSION: 1. Bovine arch. Arch vessels, carotids and vertebrals are all patent with no significant atherosclero tic disease. 2. Patient is left vertebral dominant. Sanchez Ruth MD on April 07, 2017 at 23:09 Board Certified Radiologist. This report was verified electronically.
[2017-04-07] MEDS: ALPRAZolam 1 MG TAB PO PRN (23:17)
[2017-04-08] VITALS (10 sets, daily range): BP systolic 93–150; BP diastolic 7–103; PULSE 72–110; RESP 17–19; TEMP 96.9–98.3; O2SAT 94–100
[2017-04-08 03:58] LABS: AUTOMATED NEUTROPHIL # 3.9 TH/MM3 (1.8-7.7); BASOPHIL # 0.1 TH/MM3 (0-0.2); BASOPHIL % 0.8 % (0.0-2.0); EOSINOPHIL # 0.1 TH/MM3 (0-0.4); EOSINOPHIL % 1.6 % (0.0-4.0); HEMATOCRIT 39.4 % (39.0-51.0); HEMO FLAGS DIFF FINAL; LYMPH % 35.3 % (9.0-44.0); LYMPHOCYTE # 2.5 TH/MM3 (1.0-4.8); MEAN CELL VOLUME 81.8 FL (80.0-100.0); MEAN CORPUSCULAR HEMOGLOBIN 27.5 PG (27.0-34.0); MEAN CORPUSCULAR HGB CONC 33.7 % (32.0-36.0); MONO % 6.8 % (0.0-8.0); NEUT % 55.5 % (16.0-70.0); PLATELET COUNT 240 TH/MM3 (150-450); RED BLOOD COUNT 4.81 MIL/MM3 (4.50-5.90); RED CELL DISTRIBUTION WIDTH 13.6 % (11.6-17.2)
[2017-04-08 04:02] LABS: INTERNATIONAL NORMALIZED RATIO 0.9 RATIO; PROTHROMBIN TIME - PATIENT 10.2 SEC (9.8-11.6)
[2017-04-08 04:24] LABS: ALKALINE PHOSPHATASE 119 U/L (45-117); ALT (GPT) 22 U/L (12-78); ANION GAP 10 MEQ/L (5-15); AST (GOT) 14 U/L (15-37); BICARBONATE 24.1 MEQ/L (21.0-32.0); BLOOD UREA NITROGEN 13 MG/DL (7-18); CHLORIDE 101 MEQ/L (98-107); CREATINE KINASE 45 U/L (39-308); FREE T4 0.89 NG/DL (0.76-1.46); GLOMERULAR FILTRATION RATE 118 ML/MIN (>89); HDL CHOLESTEROL 35.9 MG/DL (40.0-60.0); LDL CHOLESTEROL 91 MG/DL (0-99); POTASSIUM 3.8 MEQ/L (3.5-5.1); SODIUM (NA) 135 MEQ/L (136-145); TOTAL BILIRUBIN ADULT 0.1 MG/DL (0.2-1.0)
[2017-04-08] MEDS: INSULIN ASPART SUPPLEMENTAL SCALE SQ SCH ×4 (07:00→22:46)
[2017-04-08] MEDS: levETIRAcetam 500 MG TAB PO SCH ×2 (07:54→21:52)
[2017-04-08] MEDS: SODIUM CHLORIDE 0.9% FLUSH 5 ML FLUSH IV FLUSH SCH (07:58)
[2017-04-08] MEDS: ASPIRIN 325 MG TAB PO SCH (07:58)
[2017-04-08] MEDS: SODIUM CHLORIDE 0.9% FLUSH 10 ML FLUSH IV FLUSH SCH (07:58)
[2017-04-08] MEDS: DOCUSATE SODIUM 50 MG/SENNA 8.6 MG TAB PO SCH ×2 (07:59→21:52)
[2017-04-08] MEDS: SODIUM CHLOR 0.9% 1000 ML INJ 1,000 ML IV SCH (09:42)
[2017-04-08] MEDS: ALPRAZolam 1 MG TAB PO PRN ×2 (09:55→18:07)
[2017-04-08 10:56] LABS: ALT (GPT) 23 U/L (12-78); AST (GOT) 15 U/L (15-37)
[2017-04-08 10:58] LABS: HEMOGLOBIN A1b 2.7 %; HEMOGLOBIN Ao 78.9 %; HEMOGLOBIN LA1C 2.6 %; HEMOGLOBIN P3 4.2 %
[2017-04-08 11:18] LABS: TOTAL PROTEIN SPE 7.2 GM/DL (6.0-7.6)
[2017-04-08 11:23] LABS: CREATINE KINASE 41 U/L (39-308)
--- NOTE | 2017-04-08 12:04 | MB ---
cc: CHRISTOPHER MCDANIEL MD DATE OF CONSULTATION: 04/08/2017 REASON FOR CONSULTATION: Possible CVA. HISTORY OF PRESENT ILLNESS: The patient is a pleasant 42-year-old gentleman with a history of a [employer] pacemaker but has not been following up with cardiology. He says the pacemaker is placed due to recurrent episodes of syncope with sinus positives seen. He presents after leaving AMA from another facility with left-sided pain, weakness and tingling in both upper and lower extremities. He has already had his pacemaker interrogated which showed zero mode switch and 0% atrial fibrillation burden with only several high ventricular rates detected which appear consistent with sinus tachycardia. The patient says that there is some discomfort in the left upper chest but I do note that he was seen March 20 of this year at which time he had a nonischemic nuclear stress test. PAST MEDICAL HISTORY: 1. [employer] pacemaker for syncope. 2. Seizure disorder. 3. Diabetes. 4. Pancreatitis. 5. Hyperlipidemia. 6. DVT/PE. CURRENT MEDICATIONS 1. Lipitor 20 mg q.h.s. 2. Keppra. 3. Roxicodone. ALLERGIES: NITROGLYCERIN VANCOMYCIN PHYSICAL EXAMINATION Afebrile, pulse 90, respiratory rate 18, blood pressure 115/74, sating 95%. General: Pleasant gentleman in no distress. Neck: No JVD. Lungs: Clear to auscultation bilaterally. Cardiovascular: Regular rhythm. No murmurs appreciated. Abdomen: Benign. Extremities: No edema. LABORATORY DATA: White count 7.0, hematocrit 39.4, platelet count 240. Sodium 135, potassium 2.8, chloride 111, bicarb 24.1, BUN 13, creatinine 0.73, glucose 247, cardiac enzymes are negative. Telemetry shows intermittent pacing. EKG shows sinus rhythm with no acute ST or T-wave changes. IMPRESSION Possible CVA. Patient's history is somewhat vague but he is being ruled out for CVA. His pacer is MRI safe which I have conveyed to the neurologist and they can arrange with the pacer rep for an MRI if desired. The interrogation of his pacemaker shows no evidence of any atrial dysrhythmia, though I will look at his echocardiogram to ensure he does not have any significant left atrial enlargement. Further recommendations will be based on his clinical course. Thank you again for this opportunity to participate in this patient's care. MD JOSLYN Bowman/RYAN /11:20 AM /11:51 AM
--- NOTE | 2017-04-08 14:02 | ECHRPT ---
Indication: cva/tia CONCLUSIONS Normal left ventricular size. Wall thickness is normal. The left ventricular systolic function is normal with an estimated ejection fraction in the range of 55-60%. BP: / HR: Rhythm: Sinus MEASUREMENTS (Male / Female) Normal Values Technical Quality:Good 2D ECHO LV Diastolic Diameter PLAX 4.9 cm 4.2 - 5.9 / 3.9 - 5.3 cm LV Systolic Diameter PLAX 3.5 cm IVS Diastolic Thickness 0.9 cm 0.6 - 1.0 / 0.6 - 0.9 cm LVPW Diastolic Thickness 0.6 cm 0.6 - 1.0 / 0.6 - 0.9 cm LV Relative Wall Thickness 0.3 LA Systolic Diameter LX 3.5 cm 3.0 - 4.0 / 2.7 - 3.8 cm M-MODE Aortic Root Diameter MM 3.1 cm AV Cusp Separation MM 2.1 cm DOPPLER Mitral E Point Velocity 73.1 cm/s Mitral A Point Velocity 72.6 cm/s Mitral E to A Ratio 1.0 TR Peak Velocity 217.0 cm/s TR Peak Gradient 18.8 mmHg FINDINGS LEFT VENTRICLE Normal left ventricular size. Wall thickness is normal. The left ventricular systolic function is normal with an estimated ejection fraction in the range of 55-60%. RIGHT VENTRICLE Normal right ventricular size and systolic function. LEFT ATRIUM The left atrial size is normal. RIGHT ATRIUM The right atrial size is normal. ATRIAL SEPTUM Normal atrial septal thickness without atrial level shunting by limited color doppler interrogation. AORTA The aortic root and proximal ascending aorta are normal in size on limited imaging. MITRAL VALVE Structurally normal mitral valve. No mitral valve stenosis or regurgitation. AORTIC VALVE Trileaflet aortic valve. No aortic valve stenosis or regurgitation. TRICUSPID VALVE Structurally normal tricuspid valve. No tricuspid valve stenosis or regurgitation. PULMONARY VALVE The pulmonary valve is not well visualized. VESSELS The inferior vena cava is normal in size. PERICARDIUM No pericardial effusion. Wyatt Guidry MD (Electronically Signed) Final Date:08 April 2017 14:01
[2017-04-08] MEDS ORDERED: LEVOTHYROXINE SODIUM 50 MCG TAB PO SCH (15:00)
[2017-04-08] MEDS: ENOXAPARIN SODIUM 40 MG/0.4 ML SYRINGE SQ SCH (15:30)
[2017-04-08] MEDS ORDERED: LEVO.05 PO (15:50)
[2017-04-08] MEDS ORDERED: ASPI325T PO (15:50)
[2017-04-08] MEDS ORDERED: LIPI10TA PO (15:50)
--- NOTE | 2017-04-08 15:50 | HHI.PR ---
Subjective Remarks This is a 42-year-old male with a past medical history significant for degenerative disc disease of cervical and lumbar spine status post previous fusions, seizure disorder, diabetes, pancreatitis, dyslipidemia and history of pacemaker implantation in 2014 with complication of a PE/DVT who presents to [facility] ED with complaints of sudden onset of left upper and lower extremity weakness with numbness and tingling since yesterday morning. Patient states that his symptoms have been progressive prompting him to come in to the ED. He was seen in the [place] ED earlier today but left AGAINST MEDICAL ADVICE. Patient denies any associated headache, dizziness, lightheadedness, presyncope/syncopal episode, diaphoresis or vision changes. He denies any facial droop or slurred speech. He states his last seizure was 5-6 years ago. He denies any bowel or bladder incontinence. Patient states he is unable to take any NSAID or Tylenol as advised by his GI physician secondary to pancreas and stomach issues. Patient denies any recent illness. He denies any fever or chills. He denies any chest pain or shortness of breath. He denies any nausea , vomiting or abdominal pain. He denies any complaints of constipation, diarrhea, dysuria or hematuria. He does report he had some palpitations for one day last week that resolved on their own. EKG done in [place] showed normal sinus rhythm with no evidence of STEMI or ischemia. CT of the head was obtained which showed no acute intracranial abnormality. Per ED note, patient' s E force revealed patients receiving multiple controlled substances from multiple providers. In January he received 268 oxycodone, 90 Adderall and 60 Xanax. In February patient received 250 oxycodone, 90 Adderall and 120 Xanax. So far in March, patient has received 90 oxycodone and 30 Xanax. Additionally, patient informs me that he had a recent rotator cuff repair surgery with concomitant bone biopsy for suspicious lesion and was recently told that he has cancer. He has a follow-up appointment with his oncologist next week in [place]. Going around to multiple hospitals in the [facility] as well as now appears to be [facility] also. Patient had chronic neck issues and is had shoulder surgery as well as back surgery which might explain some of this numbness 8-20 I was able to pull up his records from [facility] and [facility]. Patient had full workup at [facility]. Had CAT scans. Was recommended to be on a full dose aspirin as well as statin which I don't believe he is taking either and neglected to mention that he wishes there and discharged on April 06. He then presented to [facility] in [place] and left AMA and then came here later that day at the [facility] with the exact same complaint that he had 2 days ago His CAT scan done at [facility] does not show a stroke In the CAT scans done here 2 days later do not show a stroke which I would figure they would if he had an actual stroke I feel there is some degree of drug-seeking behavior and malingering going on here. Patient has been at multiple hospitals that I can see through the [facility] system around [place] Patient neglected to mention that he was supposed to be on other medications when he presented to the emergency room here and neglected to mention that he had just been discharged from [facility] Can hopefully be discharged later today Discharged to home when cleared by neurology Objective Vitals Vital Signs Date Time Temp Pulse Resp B/P (MAP) Pulse Ox O2 Delivery O2 Flow Rate FiO2 04/08/17 12:00 97.9 80 18 120/71 (87) 99 04/08/17 08:55 18 04/08/17 08:00 97.8 91 19 149/103 (118) 99 04/08/17 06:29 113/74 (87) 04/08/17 05:35 98.3 90 18 103/62 (76) 95 04/08/17 04:09 98/7 (37) 04/08/17 04:04 97.7 110 18 93/62 (72) 98 04/08/17 00:53 96.9 85 18 150/68 (95) 100 04/07/17 21:21 77 04/07/17 21:14 98.6 77 18 147/93 (111) 100 04/07/17 17:31 97.8 64 18 126/65 (85) 99 04/07/17 16:42 78 16 124/84 (97) 97 Room Air Result Diagram: 04/08/17 0310 04/08/17 0310 Other Results Laboratory Tests Test 04/07/17 12:55 04/07/17 13:50 04/07/17 20:25 04/08/17 03:10 White Blood Count 7.0 TH/MM3 7.0 TH/MM3 Red Blood Count 5.18 MIL/MM3 4.81 MIL/MM3 Hemoglobin 14.1 GM/DL 13.3 GM/DL Hematocrit 41.7 % 39.4 % Mean Corpuscular Volume 80.4 FL 81.8 FL Mean Corpuscular Hemoglobin 27.1 PG 27.5 PG Mean Corpuscular Hemoglobin Concent 33.7 % 33.7 % Red Cell Distribution Width 13.6 % 13.6 % Platelet Count 297 TH/MM3 240 TH/MM3 Mean Platelet Volume 6.5 FL 7.1 FL Neutrophils (%) (Auto) 62.4 % 55.5 % Lymphocytes (%) (Auto) 29.2 % 35.3 % Monocytes (%) (Auto) 6.6 % 6.8 % Eosinophils (%) (Auto) 1.3 % 1.6 % Basophils (%) (Auto) 0.5 % 0.8 % Neutrophils # (Auto) 4.4 TH/MM3 3.9 TH/MM3 Lymphocytes # (Auto) 2.0 TH/MM3 2.5 TH/MM3 Monocytes # (Auto) 0.5 TH/MM3 0.5 TH/MM3 Eosinophils # (Auto) 0.1 TH/MM3 0.1 TH/MM3 Basophils # (Auto) 0.0 TH/MM3 0.1 TH/MM3 CBC Comment DIFF FINAL DIFF FINAL Differential Comment Prothrombin Time 10.4 SEC 10.2 SEC Prothromb Time International Ratio 0.9 RATIO 0.9 RATIO Activated Partial Thromboplast Time 28.2 SEC Blood Urea Nitrogen 15 MG/DL 13 MG/DL Creatinine 0.75 MG/DL 0.73 MG/DL Random Glucose 233 MG/DL 247 MG/DL Calcium Level 8.7 MG/DL 8.6 MG/DL Sodium Level 135 MEQ/L 135 MEQ/L Potassium Level 3.8 MEQ/L 3.8 MEQ/L Chloride Level 102 MEQ/L 101 MEQ/L Carbon Dioxide Level 24.4 MEQ/L 24.1 MEQ/L Anion Gap 9 MEQ/L 10 MEQ/L Estimat Glomerular Filtration Rate 114 ML/MIN 118 ML/MIN Hemoglobin A1c 10.0 % Total Creatine Kinase 46 U/L 44 U/L 45 U/L Troponin I LESS THAN 0.02 NG/ML LESS THAN 0.02 NG/ML LESS THAN 0.02 NG/ML Urine Opiates Screen NEG Urine Barbiturates Screen NEG Urine Amphetamines Screen NEG Urine Benzodiazepines Screen POS Urine Cocaine Screen NEG Urine Cannabinoids Screen NEG Erythrocyte Sedimentation Rate 13 mm/hr Total Protein 7.1 GM/DL Albumin 3.6 GM/DL Phosphorus Level 3.7 MG/DL Magnesium Level 2.0 MG/DL Alkaline Phosphatase 119 U/L Aspartate Amino Transf (AST/SGOT) 14 U/L Alanine Aminotransferase (ALT/SGPT) 22 U/L Total Bilirubin 0.1 MG/DL Triglycerides Level 276 MG/DL Cholesterol Level 182 MG/DL LDL Cholesterol 91 MG/DL HDL Cholesterol 35.9 MG/DL Cholesterol/HDL Ratio 5.06 RATIO Free Thyroxine 0.89 NG/DL Thyroid Stimulating Hormone 3rd Gen 15.200 uIU/ML Test 04/08/17 09:49 Aspartate Amino Transf (AST/SGOT) 15 U/L Alanine Aminotransferase (ALT/SGPT) 23 U/L Total Creatine Kinase 41 U/L Troponin I LESS THAN 0.02 NG/ML C-Reactive Protein LESS THAN 0.29 MG/DL Total Protein 7.2 GM/DL Vitamin B12 Level 506 PG/ML Folate GREATER THAN 20.0 NG/ML Free Thyroxine 1.00 NG/DL Imaging Last Impressions Neck CTA 04/07/172021 Signed Impressions: Service Date/Time: Friday, April 07, 2017 22:35 - CONCLUSION: 1. Bovine arch. Arch vessels, carotids and vertebrals are all patent with no significant atherosclerotic disease. 2. Patient is left vertebral dominant. Sanchez Ruth MD Head CTA 04/07/172021 Signed Impressions: Service Date/Time: Friday, April 07, 2017 22:35 - CONCLUSION: Intracranial vessels are all patent without aneurysmal disease. Kris Moise MD Head CT 04/07/17 1211 Signed Impressions: Service Date/Time: Friday, April 07, 2017 14:12 - CONCLUSION: No acute intracranial abnormality. Leon Qureshi MD Carotid Artery Ultrasound 04/07/17 0000 Signed Impressions: Service Date/Time: Friday, April 07, 2017 22:02 - CONCLUSION: No evidence for hemodynamically significant stenosis. Dinah Muñoz MD Objective Remarks GENERAL: This is a well-nourished, well-developed patient, in no apparent distress. Awake and alert. Appears comfortable. SKIN: No rashes, ecchymoses or lesions. Cool and dry. Subjective decreased sensation left side of face. No facial droop appreciated. Multiple tattoos HEAD: Atraumatic. Normocephalic. No temporal or scalp tenderness. EYES: Pupils equal round and reactive. Extraocular motions intact. No scleral icterus. No injection or drainage. Tongue is midline ENT: Nose without bleeding or purulent drainage. Throat without erythema, tonsillar hypertrophy or exudate. Uvula midline. Airway patent. Tongue is midline NECK: Trachea midline. No lymphadenopathy. Supple, nontender, no meningeal signs. CARDIOVASCULAR: Regular rate and rhythm without murmurs, gallops, or rubs. S1- S2 no S3 or S4 no heave or thrill RESPIRATORY: Clear to auscultation. Breath sounds equal bilaterally. No wheezes , rales, or rhonchi. GASTROINTESTINAL: Abdomen soft, non-tender, nondistended. No hepato-splenomegaly , or palpable masses. No guarding. MUSCULOSKELETAL: Extremities without clubbing, cyanosis, or edema. No joint tenderness, effusion, or edema noted. No calf tenderness. NEUROLOGICAL: Awake and alert. Slightly weak left upper and lower extremity motor function in comparison to right. Subjective sensation decreased to light touch in left upper and lower extremity. Normal speech. Insight and judgment poor mood and behavior is somewhat appropriate Medications and IVs Current Medications Sodium Chloride (NS Flush) 2 ml UNSCH PRN IVF FLUSH AFTER USING IV ACCESS; Start 04/07/17 at 12:15 Morphine Sulfate (Morphine Inj) 2 mg ONCE ONCE IV PUSH Last administered on 15:34; Start 04/07/17 at 15:15; Stop 04/07/17 at 15:16; Status DC Ondansetron HCl (Zofran Inj) 4 mg ONCE ONCE IV PUSH Last administered on 15:35; Start 04/07/17 at 15:15; Stop 04/07/17 at 15:16; Status DC Dextrose (D50w (Vial) Inj) 50 ml UNSCH PRN IV HYPOGLYCEMIA-SEE COMMENTS; Start 04/07/17 at 15:30 Glucagon (Glucagon Inj) 1 mg UNSCH PRN OTHER HYPOGLYCEMIA-SEE COMMENTS; Start 04/07/17 at 15:30 Insulin Aspart (NovoLOG SUPPLEMENTAL SCALE) 1 ACHS SLIDING SCALE SQ Last administered on 04/08/17 11:00; Start 04/07/17 at 16:00 IV Flush (NS Flush) 2 ml BID IV FLUSH Last administered on 04/07/17 21:00; Start 04/07/17 at 21:00 IV Flush (NS Flush) 2 ml UNSCH PRN IV FLUSH FLUSH AFTER USING IV ACCESS; Start 04/07/17 at 15:30 Aspirin (Aspirin) 325 mg DAILY PO Last administered on 04/08/17 07:58; Start 04/07/17 at 15:30 Atorvastatin Calcium (Lipitor) 20 mg HS PO Last administered on 04/07/17 21:14 ; Start 04/07/17 at 21:00 Dextrose (D50w (Vial) Inj) 50 ml UNSCH PRN IV PUSH HYPOGLYCEMIA-SEE COMMENTS; Start 04/07/17 at 15:30 Glucagon (Glucagon Inj) 1 mg UNSCH PRN OTHER HYPOGLYCEMIA-SEE COMMENTS; Start 04/07/17 at 15:30 Enoxaparin Sodium (Lovenox Inj) 40 mg Q24H SQ ; Start 04/07/17 at 15:30 Sodium Chloride (NS Flush) 2 ml UNSCH PRN IV FLUSH FLUSH AFTER USING IV ACCESS ; Start 04/07/17 at 15:30 Sodium Chloride (NS Flush) 2 ml BID IV FLUSH Last administered on 04/08/17 07: 58; Start 04/07/17 at 21:00 Ondansetron HCl (Zofran Inj) 4 mg Q6H PRN IVP NAUSEA OR VOMITING; Start at 15:30 Prochlorperazine (Compazine Supp) 25 mg Q12H PRN RECTAL NAUSEA OR VOMITING; Start 04/07/17 at 15:30 Acetaminophen (Tylenol) 650 mg Q6H PRN PO PAIN SCALE 1 TO 2; Start 04/07/17 at 15:30 Oxycodone HCl (Roxicodone) 10 mg Q4H PRN PO PAIN SCALE 6 TO 10 Last administered on 04/07/17 16:39; Start 04/07/17 at 15:30 Morphine Sulfate (Morphine Inj) 4 mg Q3H PRN IV Pain 6-10;if unable to take PO ; Start 04/07/17 at 15:30 Hydromorphone HCl (Dilaudid Pf Inj) 0.5 mg Q3H PRN IV Pain 3-5; if unable to take PO; Start 04/07/17 at 15:30 Oxycodone HCl (Roxicodone) 5 mg Q4H PRN PO PAIN SCALE 3 TO 5; Start 04/07/17 at 15:30; Stop 04/07/17 at 18:07; Status DC Naloxone HCl (Narcan Inj) 0.4 mg UNSCH PRN IV SEE LABEL COMMENTS; Start at 15:30 Senna/Docusate Sodium (Bridgett-Colace) 1 tab BID PO ; Start 04/07/17 at 21:00 Magnesium Hydroxide (Milk Of Magnesia Liq) 30 ml Q12H PRN PO MILD - MODERATE CONSTIPATION; Start 04/07/17 at 15:30 Sennosides (Senokot) 17.2 mg Q12H PRN PO MODERATE - SEVERE CONSTIPATION; Start 04/07/17 at 15:30 Bisacodyl (Dulcolax Supp) 10 mg DAILY PRN RECTAL SEVERE CONSITIPATION; Start at 15:30 Lactulose (Lactulose Liq) 30 ml DAILY PRN PO SEVERE CONSITIPATION; Start at 15:30 Alprazolam (Xanax) 2 mg Q8H PRN PO ANXIETY Last administered on 04/08/17 09:55 ; Start 04/07/17 at 16:30 Insulin Detemir (Levemir Inj) 40 units HS SQ Last administered on 04/07/17 21: 00; Start 04/07/17 at 21:00 Levetriacetam (Keppra) 500 mg BID PO Last administered on 04/08/17 07:54; Start 04/07/17 at 21:00 Oxycodone HCl (Roxicodone) 30 mg Q4H PRN PO PAIN 1-10 Last administered on 04/08 12:55; Start 04/07/17 at 18:15 Sodium Chloride 1,000 ml @ 75 mls/hr [id number] IV Last administered on 21:41; Start 04/07/17 at 20:22 Iohexol (Omnipaque 350 Inj) 100 ml STK-MED ONCE IV ; Start 04/07/17 at 22:44; Stop 04/07/17 at 22:45; Status DC Levothyroxine Sodium (Synthroid) 50 mcg DAILY PO ; Start 04/08/17 at 15:00; Stop 04/08/17 at 15:01; Status DC Levothyroxine Sodium (Synthroid) 50 mcg DAILY@0600 PO ; Start 04/08/17 at 15:15 Urinary Catheter: No Vascular Central Line Catheter: No A/P Problem List: (1) Seizure ICD Code: R56.9 - Unspecified convulsions Status: Acute (2) Diabetes ICD Code: E11.9 - Type 2 diabetes mellitus without complications Status: Acute (3) Back pain, chronic ICD Code: M54.9 - Dorsalgia, unspecified; G89.29 - Other chronic pain Status: Acute (4) Weakness ICD Code: R53.1 - Weakness Status: Acute (5) Left-sided weakness ICD Code: R53.1 - Weakness Status: Acute (6) Cardiac pacemaker ICD Code: Z95.0 - Presence of cardiac pacemaker Status: Acute (7) Heart palpitations ICD Code: R00.2 - Palpitations Status: Acute (8) Type 2 diabetes mellitus ICD Code: E11.9 - Type 2 diabetes mellitus without complications Status: Acute (9) Atypical chest pain ICD Code: R07.89 - Other chest pain Status: Acute Assessment and Plan 42-year-old male with a past medical history significant for degenerative disc disease of cervical and lumbar spine status post previous fusions, seizure disorder, diabetes, pancreatitis, dyslipidemia and history of pacemaker implantation in 2014 with complication of a PE/DVT who presents to [facility] ED with complaints of sudden onset of left upper and lower extremity weakness with numbness and tingling since yesterday morning. Left upper and lower extremity weakness with numbness and tingling Possible TIA/CVA Initial CT of the head personally reviewed and shows no evidence of acute intracranial abnormality Unable to obtain MRI study secondary to patient's pacemaker implantation Will repeat CT scan tomorrow Consult neurology Carotid ultrasound Obtain 2D echocardiogram Neuro checks q2hx12 then q4h Obtain thyroid studies and hemoglobin A1c PT/OT eval/tx Speech therapy consult for swallow evaluation Cycle cardiac enzymes - initial troponin less than 0.02 Obtain fasting lipid panel Lipitor 20 mg daily Aspirin 325 mg daily Continuous cardiac monitoring DM Random glucose 233 Resume patient's home dose of long acting insulin Obtain A1c Accu-Cheks Insulin sliding scale Diabetic diet Hyponatremia Mild am labs to monitor trend H/O Pacemaker implantation for arrhythmia Strong FMHX of CAD/PA initial troponin negative recent stress test 03/20/17 negative for ischemia monitor Seizure disorder No history of seizure for the past 5-6 years per patient report Continue home dose of Keppra Recent RCR with bone biopsy revealing newly dx'd cancer ppr patient to keep previously scheduled appt with oncologist in [place] DVT prophylaxis Lovenox 40 mg subcutaneous Bilateral SCD/ALEJANDRO hose Drug-seeking behavior Malingering Patient has been at multiple [facility] in [place] within the past couple months with the same complaints and even had it 2 days ago for the same complaint. He had workup there and was discharged and recommended to be on statin and aspirin which I don't believe he is taking either and neglected to mention this admission and the recent tests he had Discharge Planning Discharge to home when cleared by neurology Darvin Hand DO Apr 08, 2017 15:50
--- NOTE | 2017-04-08 15:53 | HHI.DCPOC ---
Discharge Care Plan Diagnosis: (1) Malingering (2) Noncompliance (3) Drug-seeking behavior (4) Atypical chest pain (5) Diabetes (6) Seizure (7) Weakness (8) Heart palpitations (9) Type 2 diabetes mellitus (10) Atypical chest pain (11) Cardiac pacemaker (12) Back pain, chronic (13) Hyperlipidemia (14) Left-sided weakness (15) Hypothyroidism Your Health Problems Are: Loss of Movements Additional Problems Left upper extremity weakness and numbness Goals to Promote Your Health * To prevent worsening of your condition and complications * To maintain your health at the optimal level Directions to Meet Your Goals Take your medications as prescribed Follow your dietary instruction Follow activity as directed Keep your appointments as scheduled Take your immunizations and boosters as scheduled If your symptoms worsen call your PCP, if no PCP go to Urgent Care Center or Emergency Room Smoking is Dangerous to Your Health. Avoid second hand smoke Call the 24-hour hour crisis hotline for domestic abuse at Darvin Hand DO Apr 08, 2017 15:53
--- NOTE | 2017-04-08 15:56 | HHI.DS ---
Discharge Summary Admission Date Apr 07, 2017 at 15:11 Discharge Date: Apr 08, 2017 Admitting Diagnosis left-sided weakness r/o CVA (1) Seizure ICD Code: R56.9 - Unspecified convulsions Diagnosis: Secondary Status: Acute (2) Diabetes ICD Code: E11.9 - Type 2 diabetes mellitus without complications Diagnosis: Secondary Status: Acute (3) Back pain, chronic ICD Code: M54.9 - Dorsalgia, unspecified; G89.29 - Other chronic pain Diagnosis: Secondary Status: Acute (4) Weakness ICD Code: R53.1 - Weakness Diagnosis: Secondary Status: Acute (5) Left-sided weakness ICD Code: R53.1 - Weakness Diagnosis: Principal Status: Acute (6) Cardiac pacemaker ICD Code: Z95.0 - Presence of cardiac pacemaker Status: Acute (7) Heart palpitations ICD Code: R00.2 - Palpitations Diagnosis: Secondary Status: Acute (8) Type 2 diabetes mellitus ICD Code: E11.9 - Type 2 diabetes mellitus without complications Diagnosis: Secondary Status: Acute (9) Atypical chest pain ICD Code: R07.89 - Other chest pain Diagnosis: Secondary Status: Acute (10) Drug-seeking behavior ICD Code: Z76.5 - Malingerer [conscious simulation] Diagnosis: Principal (11) Noncompliance ICD Code: Z91.19 - Patient's noncompliance with other medical treatment and regimen Diagnosis: Principal (12) Atypical chest pain ICD Code: R07.89 - Other chest pain Diagnosis: Secondary Status: Acute (13) Malingering ICD Code: Z76.5 - Malingerer [conscious simulation] Diagnosis: Principal (14) Hypothyroidism ICD Code: E03.9 - Hypothyroidism, unspecified Diagnosis: Secondary (15) Hyperlipidemia ICD Code: E78.5 - Hyperlipidemia, unspecified Procedures None Brief History - From Admission This is a 42-year-old male with a past medical history significant for degenerative disc disease of cervical and lumbar spine status post previous fusions, seizure disorder, diabetes, pancreatitis, dyslipidemia and history of pacemaker implantation in 2014 with complication of a PE/DVT who presents to [facility] ED with complaints of sudden onset of left upper and lower extremity weakness with numbness and tingling since yesterday morning. Patient states that his symptoms have been progressive prompting him to come in to the ED. He was seen in the [place] ED earlier today but left AGAINST MEDICAL ADVICE. Patient denies any associated headache, dizziness, lightheadedness, presyncope/syncopal episode, diaphoresis or vision changes. He denies any facial droop or slurred speech. He states his last seizure was 5-6 years ago. He denies any bowel or bladder incontinence. Patient states he is unable to take any NSAID or Tylenol as advised by his GI physician secondary to pancreas and stomach issues. Patient denies any recent illness. He denies any fever or chills. He denies any chest pain or shortness of breath. He denies any nausea , vomiting or abdominal pain. He denies any complaints of constipation, diarrhea, dysuria or hematuria. He does report he had some palpitations for one day last week that resolved on their own. EKG done in [place] showed normal sinus rhythm with no evidence of STEMI or ischemia. CT of the head was obtained which showed no acute intracranial abnormality. Per ED note, patient' s E force revealed patients receiving multiple controlled substances from multiple providers. In January he received 268 oxycodone, 90 Adderall and 60 Xanax. In February patient received 250 oxycodone, 90 Adderall and 120 Xanax. So far in March, patient has received 90 oxycodone and 30 Xanax. Additionally, patient informs me that he had a recent rotator cuff repair surgery with concomitant bone biopsy for suspicious lesion and was recently told that he has cancer. He has a follow-up appointment with his oncologist next week in [place]. Going around to multiple hospitals in the [facility] as well as now appears to be [facility] also. Patient had chronic neck issues and is had shoulder surgery as well as back surgery which might explain some of this numbness CBC/BMP: 04/08/17 0310 04/08/17 0310 Significant Findings Laboratory Tests Test 04/07/17 12:55 04/07/17 13:50 04/07/17 20:25 04/08/17 03:10 Mean Platelet Volume 6.5 FL (7.0-11.0) Random Glucose 233 MG/DL (74-106) 247 MG/DL (74-106) Sodium Level 135 MEQ/L (136-145) 135 MEQ/L (136-145) Hemoglobin A1c 10.0 % (4.3-6.0) Troponin I LESS THAN 0.02 NG/ML LESS THAN 0.02 NG/ML LESS THAN 0.02 NG/ML Urine Benzodiazepines Screen POS (NEG) Alkaline Phosphatase 119 U/L (45-117) Aspartate Amino Transf (AST/SGOT) 14 U/L (15-37) Total Bilirubin 0.1 MG/DL (0.2-1.0) Triglycerides Level 276 MG/DL (42-150) HDL Cholesterol 35.9 MG/DL (40.0-60.0) Thyroid Stimulating Hormone 3rd Gen 15.200 uIU/ML (0.358-3.740) Test 04/08/17 09:49 Troponin I LESS THAN 0.02 NG/ML Folate GREATER THAN 20.0 NG/ML Imaging Last Impressions Neck CTA 04/07/172021 Signed Impressions: Service Date/Time: Friday, April 07, 2017 22:35 - CONCLUSION: 1. Bovine arch. Arch vessels, carotids and vertebrals are all patent with no significant atherosclerotic disease. 2. Patient is left vertebral dominant. Sanchez Ruth MD Head CTA 04/07/172021 Signed Impressions: Service Date/Time: Friday, April 07, 2017 22:35 - CONCLUSION: Intracranial vessels are all patent without aneurysmal disease. Kris Moise MD Head CT 04/07/17 1211 Signed Impressions: Service Date/Time: Friday, April 07, 2017 14:12 - CONCLUSION: No acute intracranial abnormality. Leon Qureshi MD Carotid Artery Ultrasound 04/07/17 0000 Signed Impressions: Service Date/Time: Friday, April 07, 2017 22:02 - CONCLUSION: No evidence for hemodynamically significant stenosis. Dinah Muñoz MD PE at Discharge GENERAL: This is a well-nourished, well-developed patient, in no apparent distress. Awake and alert. Appears comfortable. SKIN: No rashes, ecchymoses or lesions. Cool and dry. Subjective decreased sensation left side of face. No facial droop appreciated. Multiple tattoos HEAD: Atraumatic. Normocephalic. No temporal or scalp tenderness. EYES: Pupils equal round and reactive. Extraocular motions intact. No scleral icterus. No injection or drainage. Tongue is midline ENT: Nose without bleeding or purulent drainage. Throat without erythema, tonsillar hypertrophy or exudate. Uvula midline. Airway patent. Tongue is midline NECK: Trachea midline. No lymphadenopathy. Supple, nontender, no meningeal signs. CARDIOVASCULAR: Regular rate and rhythm without murmurs, gallops, or rubs. S1- S2 no S3 or S4 no heave or thrill RESPIRATORY: Clear to auscultation. Breath sounds equal bilaterally. No wheezes , rales, or rhonchi. GASTROINTESTINAL: Abdomen soft, non-tender, nondistended. No hepato-splenomegaly , or palpable masses. No guarding. MUSCULOSKELETAL: Extremities without clubbing, cyanosis, or edema. No joint tenderness, effusion, or edema noted. No calf tenderness. NEUROLOGICAL: Awake and alert. Slightly weak left upper and lower extremity motor function in comparison to right. Subjective sensation decreased to light touch in left upper and lower extremity. Normal speech. Insight and judgment poor mood and behavior is somewhat appropriate Hospital Course This is a 42-year-old male with a past medical history significant for degenerative disc disease of cervical and lumbar spine status post previous fusions, seizure disorder, diabetes, pancreatitis, dyslipidemia and history of pacemaker implantation in 2014 with complication of a PE/DVT who presents to [facility] ED with complaints of sudden onset of left upper and lower extremity weakness with numbness and tingling since yesterday morning. Patient states that his symptoms have been progressive prompting him to come in to the ED. He was seen in the [place] ED earlier today but left AGAINST MEDICAL ADVICE. Patient denies any associated headache, dizziness, lightheadedness, presyncope/syncopal episode, diaphoresis or vision changes. He denies any facial droop or slurred speech. He states his last seizure was 5-6 years ago. He denies any bowel or bladder incontinence. Patient states he is unable to take any NSAID or Tylenol as advised by his GI physician secondary to pancreas and stomach issues. Patient denies any recent illness. He denies any fever or chills. He denies any chest pain or shortness of breath. He denies any nausea , vomiting or abdominal pain. He denies any complaints of constipation, diarrhea, dysuria or hematuria. He does report he had some palpitations for one day last week that resolved on their own. EKG done in [place] showed normal sinus rhythm with no evidence of STEMI or ischemia. CT of the head was obtained which showed no acute intracranial abnormality. Per ED note, patient' s E force revealed patients receiving multiple controlled substances from multiple providers. In January he received 268 oxycodone, 90 Adderall and 60 Xanax. In February patient received 250 oxycodone, 90 Adderall and 120 Xanax. So far in March, patient has received 90 oxycodone and 30 Xanax. Additionally, patient informs me that he had a recent rotator cuff repair surgery with concomitant bone biopsy for suspicious lesion and was recently told that he has cancer. He has a follow-up appointment with his oncologist next week in [place]. Going around to multiple hospitals in the [place] area as well as now appears to be [facility] also. Patient had chronic neck issues and is had shoulder surgery as well as back surgery which might explain some of this numbness 8-20 I was able to pull up his records from [facility]. Patient had full workup at [facility]. Had CAT scans. Was recommended to be on a full dose aspirin as well as statin which I don't believe he is taking either and neglected to mention that he wishes there and discharged on April 06. He then presented to [facility] in [place] and left AMA and then came here later that day at the [facility] with the exact same complaint that he had 2 days ago His CAT scan done at [facility] does not show a stroke In the CAT scans done here 2 days later do not show a stroke which I would figure they would if he had an actual stroke I feel there is some degree of drug-seeking behavior and malingering going on here. Patient has been at multiple hospitals that I can see through the [facility] system around [place] Patient neglected to mention that he was supposed to be on other medications when he presented to the emergency room here and neglected to mention that he had just been discharged from [facility] Can hopefully be discharged later today Discharged to home when cleared by neurology Pt Condition on Discharge: Good Discharge Disposition: Discharge Home Discharge Time: > 30 minutes Discharge Instructions DIET: Follow Instructions for: Heart Healthy Diet, Diabetic Diet Speech Therapy-Diet Recommends: Regular Activities you can perform: Regular-No Restrictions Follow up Referrals: Neurology - 2 Weeks with Neel Carr MD PCP Follow-up - 3-5 Days New Medications: Aspirin (Aspirin) 325 Mg Tab 325 MG PO DAILY for Blood Clot Prevention, #30 TAB Atorvastatin (Lipitor) 10 Mg Tab 20 MG PO HS for Cholesterol Management, #30 TAB Levothyroxine (Synthroid) 50 Mcg Tab 50 MCG PO DAILY@0600 for Thyroid, #30 TAB Continued Medications: Alprazolam (Xanax) 2 Mg Tab 2 MG PO Q8H PRN for ANXIETY, TAB 0 Refills Insulin Detemir Inj (Levemir Inj) 1,000 unit/ 10 ML Vial 40 UNITS SQ HS for Blood Sugar Management, VIAL 0 Refills Do not mix with any other Insulin. Insulin Lispro (Human) Inj (Humalog Inj) 1,000 Unit/10 Ml Vial SQ ACHS for Blood Sugar Management, #1 VIAL 0 Refills Max dose at bedtime:( )units; sugars < 70,(0)units; sugars 150-199,(5)units; sugars 200-249,(10)units; sugars 250-299,(15)units; sugars 300-349,(20)units; sugars more than 349,(25)units. Levetiracetam (Keppra) 500 Mg Tab 500 MG PO BID for Control Seizures, #60 TAB 0 Refills Oxycodone (Oxycodone) 30 Mg Tab 30 MG PO Q4HR PRN for PAIN, TAB 0 Refills Darvin Hand DO Apr 08, 2017 15:56
--- NOTE | 2017-04-08 16:00 | EKG ---
Date Performed: 04/07/2017 Time Performed: 12:19:42 PTAGE: 42 years EKG: Nonspecific T-wave change Since previous tracing, no significant change noted NORMAL ECG PREVIOUS TRACING : 04/07/2017 11.13.56 DOCTOR: Aditya Mercado Interpretating Date/Time 04/08/2017 16:00:03
[2017-04-08] MEDS: LEVOTHYROXINE SODIUM 50 MCG TAB PO SCH (18:07)
--- NOTE | 2017-04-08 21:07 | RADRPT ---
EXAM DATE/TIME: 04/08/2017 20:56 [facility] COMPARISON: CT BRAIN W/O CONTRAST, April 07, 2017, 14:12. INDICATIONS : Follow up stroke. RADIATION DOSE: 36.57 CTDIvol (mGy) MEDICAL HISTORY : Cerebrovascular disease. Hypertension. SURGICAL HISTORY : Cervical fusion ENCOUNTER: Subsequent ACUITY: 1 day PAIN SCALE: 0/10 LOCATION: cranial TECHNIQUE: Multiple contiguous axial images were obtained of the head. Using automated exposure control and adj ustment of the mA and/or kV according to patient size, radiation dose was kept as low as reasonably a chievable to obtain optimal diagnostic quality images. DICOM format image data is available electro nically for review and comparison. FINDINGS: There is no evidence for intracranial hemorrhage, mass effect, mass lesions, edema, or extra-axial fl uid collections. The visualized bony structures appear intact. The ventricles are normal size for t he patient's age. There are no signs of acute infarction for technique. CONCLUSION: Unremarkable study. Dinah Muñoz MD on April 08, 2017 at 21:03 Board Certified Radiologist. This report was verified electronically.
[2017-04-08] MEDS: ATORVASTATIN 10 MG TAB PO SCH (21:52)
[2017-04-08] MEDS: INSULIN DETEMIR 100 UNITS/ML VIAL SQ SCH (22:45)
[2017-04-09 00:56] VITALS: BP 97/55; PULSE 75; RESP 20; TEMP 97.7; O2SAT 97
[2017-04-09] MEDS: LEVOTHYROXINE SODIUM 50 MCG TAB PO SCH (05:45)
[2017-04-09] MEDS: ALPRAZolam 1 MG TAB PO PRN ×3 (06:07→23:55)
--- NOTE | 2017-04-09 07:32 | HHI.PR ---
Objective Vital Signs Date Time Temp Pulse Resp B/P (MAP) Pulse Ox O2 Delivery O2 Flow Rate FiO2 04/09/17 00:56 97.7 75 20 97/55 (69) 97 04/08/17 20:00 98.3 72 17 118/71 (87) 96 04/08/17 20:00 98.3 72 17 118/71 (87) 96 04/08/17 16:00 97.7 91 19 126/72 (90) 94 04/08/17 12:00 97.9 80 18 120/71 (87) 99 04/08/17 11:30 96 21 04/08/17 08:55 18 04/08/17 08:00 97.8 91 19 149/103 (118) 99 Result Diagram: 04/08/1730904/08/17309 Objective Remarks co left arm pain nad moving left well nl speech Assessment and Plan Assessment and Plan imp asa plan is to do mri brain and c spine today with [facility] rep here if neg can dc on asa 81 mg echo nl Neel Carr MD Apr 09, 2017 07:32
[2017-04-09 08:00] VITALS: BP 107/73; PULSE 79; RESP 16; TEMP 97.8; O2SAT 95
[2017-04-09] MEDS: DOCUSATE SODIUM 50 MG/SENNA 8.6 MG TAB PO SCH ×2 (09:00→20:09)
[2017-04-09] MEDS: SODIUM CHLORIDE 0.9% FLUSH 5 ML FLUSH IV FLUSH SCH ×2 (09:00→21:57)
[2017-04-09] MEDS: SODIUM CHLORIDE 0.9% FLUSH 10 ML FLUSH IV FLUSH SCH ×2 (09:00→20:09)
[2017-04-09 09:36] LABS: INTERNATIONAL NORMALIZED RATIO 0.9 RATIO
--- NOTE | 2017-04-09 09:44 | PD.CARD.PN ---
Subjective Subjective Remarks still notes vague sharp left chest arm pain Objective Medications Administered Medications Medications (Trade) Dose Ordered Sig/Fawad Route PRN Reason Start Time Stop Time Status Last Admin Dose Admin Insulin Aspart (NovoLOG SUPPLEMENTAL SCALE) 1 ACHS SLIDING SCALE SQ 04/07/17 16:00 04/08/17 22:46 IV Flush (NS Flush) 2 ml BID IV FLUSH 04/07/17 21:00 04/07/17 21:00 Aspirin (Aspirin) 325 mg DAILY PO 04/07/17 15:30 04/08/17 07:58 Atorvastatin Calcium (Lipitor) 20 mg HS PO 04/07/17 21:00 04/08/17 21:52 Sodium Chloride (NS Flush) 2 ml BID IV FLUSH 04/07/17 21:00 04/08/17 07:58 Oxycodone HCl (Roxicodone) 10 mg Q4H PRN PO PAIN SCALE 6 TO 10 04/07/17 15:30 04/08/17 16:35 Senna/Docusate Sodium (Bridgett-Colace) 1 tab BID PO 04/07/17 21:00 04/08/17 21:52 Alprazolam (Xanax) 2 mg Q8H PRN PO ANXIETY 04/07/17 16:30 04/09/17 06:07 Insulin Detemir (Levemir Inj) 40 units HS SQ 04/07/17 21:00 04/08/17 22:45 Levetriacetam (Keppra) 500 mg BID PO 04/07/17 21:00 04/08/17 21:52 Sodium Chloride 1,000 ml @ 75 mls/hr [id number] IV 04/07/17 20:22 04/07/17 21:41 Levothyroxine Sodium (Synthroid) 50 mcg DAILY@0600 PO 04/08/17 15:15 04/09/17 05:45 Oxycodone HCl (Roxicodone) 30 mg Q4H PRN PO PAIN SCALE 1 TO 10 04/08/17 17:15 04/09/17 06:08 Vital Signs / I&O Vital Signs Date Time Temp Pulse Resp B/P (MAP) Pulse Ox O2 Delivery O2 Flow Rate FiO2 04/09/17 08:00 97.8 79 16 107/73 (84) 95 04/09/17 00:56 97.7 75 20 97/55 (69) 97 04/08/17 20:00 98.3 72 17 118/71 (87) 96 04/08/17 20:00 98.3 72 17 118/71 (87) 96 04/08/17 16:00 97.7 91 19 126/72 (90) 94 04/08/17 12:00 97.9 80 18 120/71 (87) 99 04/08/17 11:30 96 21 Physical Exam GENERAL: This is a well-nourished, well-developed patient, in no apparent distress. CARDIOVASCULAR: Regular rate and rhythm without murmurs, gallops, or rubs. RESPIRATORY: Clear to auscultation. Breath sounds equal bilaterally. No wheezes , rales, or rhonchi. GASTROINTESTINAL: Abdomen soft, non-tender, nondistended. Normal active bowel sounds MUSCULOSKELETAL: Extremities without clubbing, cyanosis, or edema. NEURO: Alert & Oriented x4 to person, place, time, situation. Moves all ext x4 Laboratory Laboratory Tests Test 04/08/17 09:49 04/09/17 08:50 Aspartate Amino Transf (AST/SGOT) 15 U/L Alanine Aminotransferase (ALT/SGPT) 23 U/L Total Creatine Kinase 41 U/L Troponin I LESS THAN 0.02 NG/ML C-Reactive Protein LESS THAN 0.29 MG/DL Total Protein 7.2 GM/DL Vitamin B12 Level 506 PG/ML Folate GREATER THAN 20.0 NG/ML Free Thyroxine 1.00 NG/DL Prothrombin Time 10.0 SEC Prothromb Time International Ratio 0.9 RATIO Imaging Last Impressions Neck CTA 04/07/172021 Signed Impressions: Service Date/Time: Friday, April 07, 2017 22:35 - CONCLUSION: 1. Bovine arch. Arch vessels, carotids and vertebrals are all patent with no significant atherosclerotic disease. 2. Patient is left vertebral dominant. aSnchez Ruth MD Head CTA 04/07/172021 Signed Impressions: Service Date/Time: Friday, April 07, 2017 22:35 - CONCLUSION: Intracranial vessels are all patent without aneurysmal disease. Kris Moise MD Head CT 04/07/17 1211 Signed Impressions: Service Date/Time: Friday, April 07, 2017 14:12 - CONCLUSION: No acute intracranial abnormality. Leon Qureshi MD Carotid Artery Ultrasound 04/07/17 0000 Signed Impressions: Service Date/Time: Friday, April 07, 2017 22:02 - CONCLUSION: No evidence for hemodynamically significant stenosis. Dinah Muñoz MD Assessment and Plan Problem List: (1) Acute chest pain ICD Codes: R07.9 - Chest pain, unspecified Status: Acute Plan: will get a nuc stress Assessment and Plan He is due to get an MRI; if no ischemia by nuc stress will sign off and be available as needed. Wyatt Guidry MD Apr 09, 2017 09:44
[2017-04-09 10:03] LABS: ALKALINE PHOSPHATASE 115 U/L (45-117); ALT (GPT) 24 U/L (12-78); ANION GAP 9 MEQ/L (5-15); AST (GOT) 15 U/L (15-37); BICARBONATE 21.1 MEQ/L (21.0-32.0); BLOOD UREA NITROGEN 13 MG/DL (7-18); CHLORIDE 102 MEQ/L (98-107); GLOMERULAR FILTRATION RATE 135 ML/MIN (>89); SODIUM (NA) 132 MEQ/L (136-145); TOTAL BILIRUBIN ADULT 0.2 MG/DL (0.2-1.0)
[2017-04-09 10:23] LABS: AUTOMATED NEUTROPHIL # 4.3 TH/MM3 (1.8-7.7); BASOPHIL % 0.6 % (0.0-2.0); EOSINOPHIL # 0.1 TH/MM3 (0-0.4); EOSINOPHIL % 1.3 % (0.0-4.0); HEMATOCRIT 39.3 % (39.0-51.0); HEMO FLAGS DIFF FINAL; LYMPHOCYTE # 1.8 TH/MM3 (1.0-4.8); MONO % 6.7 % (0.0-8.0); NEUT % 64.4 % (16.0-70.0); PLATELET COUNT 284 TH/MM3 (150-450); RED CELL DISTRIBUTION WIDTH 13.4 % (11.6-17.2); WHITE BLOOD COUNT 6.7 TH/MM3 (4.0-11.0)
[2017-04-09] MEDS: levETIRAcetam 500 MG TAB PO SCH ×2 (10:28→20:08)
[2017-04-09] MEDS: ASPIRIN 325 MG TAB PO SCH (10:29)
[2017-04-09] MEDS: INSULIN ASPART SUPPLEMENTAL SCALE SQ SCH ×3 (11:00→21:51)
[2017-04-09 12:00] VITALS: BP 104/70; PULSE 80; RESP 16; TEMP 98; O2SAT 98
[2017-04-09] MEDS: SODIUM CHLOR 0.9% 1000 ML INJ 1,000 ML IV SCH (12:22)
[2017-04-09 12:25] LABS: ANA SCREEN NEG (NEG)
[2017-04-09 14:00] VITALS: PULSE 84
[2017-04-09] MEDS: ENOXAPARIN SODIUM 40 MG/0.4 ML SYRINGE SQ SCH (15:30)
--- NOTE | 2017-04-09 15:34 | RADRPT ---
EXAM DATE/TIME: 04/09/2017 14:13 [facility] COMPARISON: No previous studies available for comparison. INDICATIONS : Neck pain. RADIATION DOSE: 24.23 CTDIvol (mGy) MEDICAL HISTORY : Cardiovascular disease. Seizures. SURGICAL HISTORY : None. ENCOUNTER: Initial ACUITY: 1 day PAIN SCALE: 5/10 LOCATION: Left neck TECHNIQUE: Volumetric scanning of the cervical spine was performed. Multiplanar reconstructions in the sagittal, coronal and oblique axial planes were performed. Using automated exposure control and adjustment o f the mA and/or kV according to patient size, radiation dose was kept as low as reasonably achievable to obtain optimal diagnostic quality images. DICOM format image data is available electronically f or review and comparison. FINDINGS: VERTEBRAE: Anterior fusion plate seen involving C3-C4 with intervening bone graft device. Good bone growth is se en between the vertebral bodies. Vertebral body heights are maintained throughout. ALIGNMENT: No evidence of subluxation. C2-C3: The bony spinal canal is normal in size. No evidence of disc bulge or herniation. The neural forami na are bilaterally patent. C3-C4: This level is fused. Central canal is patent. Neural foramina are patent. C4-C5: There is disc space narrowing with prominent anterior osteophyte. No disc bulge or protrusion. Centra l canal is patent. Bony uncovertebral hypertrophy. Lateral recesses and neural foramina remain patent . C5-C6: Disc space narrowing without osteophyte production posteriorly. Anterior osteophyte noted. Bony uncov ertebral hypertrophy causes narrowing of the left lateral recess and mild narrowing of the neural for amen. Right lateral recess and neural foramen are patent. Central canal is patent. C6-C7: A central disc bulge with osteophyte generates narrowing the central canal. Bony uncovertebral hypert rophy contributes to bilateral lateral recess and neural foraminal narrowing. C7-T1: The bony spinal canal is normal in size. No evidence of disc bulge or herniation. The neural forami na are bilaterally patent. CONCLUSION: 1. No fracture or dislocation. 2. Anterior fusion at C3-C4. 3. Degenerative changes most pronounced at C6-C7 as detailed above. Esau Xiao Jr., MD on April 09, 2017 at 15:21 Board Certified Radiologist. This report was verified electronically.
--- NOTE | 2017-04-09 15:46 | HHI.PR ---
Subjective Remarks This is a 42-year-old male with a past medical history significant for degenerative disc disease of cervical and lumbar spine status post previous fusions, seizure disorder, diabetes, pancreatitis, dyslipidemia and history of pacemaker implantation in 2014 with complication of a PE/DVT who presents to [facility] ED with complaints of sudden onset of left upper and lower extremity weakness with numbness and tingling since yesterday morning. Patient states that his symptoms have been progressive prompting him to come in to the ED. He was seen in the [place] ED earlier today but left AGAINST MEDICAL ADVICE. Patient denies any associated headache, dizziness, lightheadedness, presyncope/syncopal episode, diaphoresis or vision changes. He denies any facial droop or slurred speech. He states his last seizure was 5-6 years ago. He denies any bowel or bladder incontinence. Patient states he is unable to take any NSAID or Tylenol as advised by his GI physician secondary to pancreas and stomach issues. Patient denies any recent illness. He denies any fever or chills. He denies any chest pain or shortness of breath. He denies any nausea , vomiting or abdominal pain. He denies any complaints of constipation, diarrhea, dysuria or hematuria. He does report he had some palpitations for one day last week that resolved on their own. EKG done in [place] showed normal sinus rhythm with no evidence of STEMI or ischemia. CT of the head was obtained which showed no acute intracranial abnormality. Per ED note, patient' s E force revealed patients receiving multiple controlled substances from multiple providers. In January he received 268 oxycodone, 90 Adderall and 60 Xanax. In February patient received 250 oxycodone, 90 Adderall and 120 Xanax. So far in March, patient has received 90 oxycodone and 30 Xanax. Additionally, patient informs me that he had a recent rotator cuff repair surgery with concomitant bone biopsy for suspicious lesion and was recently told that he has cancer. He has a follow-up appointment with his oncologist next week in [place]. Going around to multiple hospitals in the [facility] as well as now appears to be [facility] also. Patient had chronic neck issues and is had shoulder surgery as well as back surgery which might explain some of this numbness 8-20 I was able to pull up his records from [facility] and [facility]. Patient had full workup at [facility]. Had CAT scans. Was recommended to be on a full dose aspirin as well as statin which I don't believe he is taking either and neglected to mention that he wishes there and discharged on April 06. He then presented to [facility] in [place] and left AMA and then came here later that day at the [facility] with the exact same complaint that he had 2 days ago His CAT scan done at [facility] does not show a stroke In the CAT scans done here 2 days later do not show a stroke which I would figure they would if he had an actual stroke I feel there is some degree of drug-seeking behavior and malingering going on here. Patient has been at multiple hospitals that I can see through the [facility] system around [place] Patient neglected to mention that he was supposed to be on other medications when he presented to the emergency room here and neglected to mention that he had just been discharged from [facility] Can hopefully be discharged later today Discharged to home when cleared by neurology HAVING STRESS TEST AND CT SCAN OF BRAIN IF BOTH NEGATIVE THEN DC ON MEDS WRITTEN AT DC DC TO HOME Objective Vitals Vital Signs Date Time Temp Pulse Resp B/P (MAP) Pulse Ox O2 Delivery O2 Flow Rate FiO2 04/09/17 08:00 97.8 79 16 107/73 (84) 95 04/09/17 00:56 97.7 75 20 97/55 (69) 97 04/08/17 20:00 98.3 72 17 118/71 (87) 96 04/08/17 20:00 98.3 72 17 118/71 (87) 96 04/08/17 16:00 97.7 91 19 126/72 (90) 94 Result Diagram: 04/09/17 0850 04/09/17 0850 Other Results Laboratory Tests Test 04/07/17 12:55 04/07/17 13:50 04/07/17 20:25 04/08/17 03:10 White Blood Count 7.0 TH/MM3 7.0 TH/MM3 Red Blood Count 5.18 MIL/MM3 4.81 MIL/MM3 Hemoglobin 14.1 GM/DL 13.3 GM/DL Hematocrit 41.7 % 39.4 % Mean Corpuscular Volume 80.4 FL 81.8 FL Mean Corpuscular Hemoglobin 27.1 PG 27.5 PG Mean Corpuscular Hemoglobin Concent 33.7 % 33.7 % Red Cell Distribution Width 13.6 % 13.6 % Platelet Count 297 TH/MM3 240 TH/MM3 Mean Platelet Volume 6.5 FL 7.1 FL Neutrophils (%) (Auto) 62.4 % 55.5 % Lymphocytes (%) (Auto) 29.2 % 35.3 % Monocytes (%) (Auto) 6.6 % 6.8 % Eosinophils (%) (Auto) 1.3 % 1.6 % Basophils (%) (Auto) 0.5 % 0.8 % Neutrophils # (Auto) 4.4 TH/MM3 3.9 TH/MM3 Lymphocytes # (Auto) 2.0 TH/MM3 2.5 TH/MM3 Monocytes # (Auto) 0.5 TH/MM3 0.5 TH/MM3 Eosinophils # (Auto) 0.1 TH/MM3 0.1 TH/MM3 Basophils # (Auto) 0.0 TH/MM3 0.1 TH/MM3 CBC Comment DIFF FINAL DIFF FINAL Differential Comment Prothrombin Time 10.4 SEC 10.2 SEC Prothromb Time International Ratio 0.9 RATIO 0.9 RATIO Activated Partial Thromboplast Time 28.2 SEC Blood Urea Nitrogen 15 MG/DL 13 MG/DL Creatinine 0.75 MG/DL 0.73 MG/DL Random Glucose 233 MG/DL 247 MG/DL Calcium Level 8.7 MG/DL 8.6 MG/DL Sodium Level 135 MEQ/L 135 MEQ/L Potassium Level 3.8 MEQ/L 3.8 MEQ/L Chloride Level 102 MEQ/L 101 MEQ/L Carbon Dioxide Level 24.4 MEQ/L 24.1 MEQ/L Anion Gap 9 MEQ/L 10 MEQ/L Estimat Glomerular Filtration Rate 114 ML/MIN 118 ML/MIN Hemoglobin A1c 10.0 % Total Creatine Kinase 46 U/L 44 U/L 45 U/L Troponin I LESS THAN 0.02 NG/ML LESS THAN 0.02 NG/ML LESS THAN 0.02 NG/ML Urine Opiates Screen NEG Urine Barbiturates Screen NEG Urine Amphetamines Screen NEG Urine Benzodiazepines Screen POS Urine Cocaine Screen NEG Urine Cannabinoids Screen NEG Erythrocyte Sedimentation Rate 13 mm/hr Total Protein 7.1 GM/DL Albumin 3.6 GM/DL Phosphorus Level 3.7 MG/DL Magnesium Level 2.0 MG/DL Alkaline Phosphatase 119 U/L Aspartate Amino Transf (AST/SGOT) 14 U/L Alanine Aminotransferase (ALT/SGPT) 22 U/L Total Bilirubin 0.1 MG/DL Triglycerides Level 276 MG/DL Cholesterol Level 182 MG/DL LDL Cholesterol 91 MG/DL HDL Cholesterol 35.9 MG/DL Cholesterol/HDL Ratio 5.06 RATIO Free Thyroxine 0.89 NG/DL Thyroid Stimulating Hormone 3rd Gen 15.200 uIU/ML Anti-Nuclear Antibody Screen NEG Rapid Plasma Reagin NON-REACTIVE Test 04/08/17 09:49 04/09/17 08:50 Aspartate Amino Transf (AST/SGOT) 15 U/L 15 U/L Alanine Aminotransferase (ALT/SGPT) 23 U/L 24 U/L Total Creatine Kinase 41 U/L Troponin I LESS THAN 0.02 NG/ML C-Reactive Protein LESS THAN 0.29 MG/DL Total Protein 7.2 GM/DL 7.2 GM/DL Vitamin B12 Level 506 PG/ML Folate GREATER THAN 20.0 NG/ML Free Thyroxine 1.00 NG/DL White Blood Count 6.7 TH/MM3 Red Blood Count 4.80 MIL/MM3 Hemoglobin 13.0 GM/DL Hematocrit 39.3 % Mean Corpuscular Volume 82.0 FL Mean Corpuscular Hemoglobin 27.0 PG Mean Corpuscular Hemoglobin Concent 33.0 % Red Cell Distribution Width 13.4 % Platelet Count 284 TH/MM3 Mean Platelet Volume 6.8 FL Neutrophils (%) (Auto) 64.4 % Lymphocytes (%) (Auto) 27.0 % Monocytes (%) (Auto) 6.7 % Eosinophils (%) (Auto) 1.3 % Basophils (%) (Auto) 0.6 % Neutrophils # (Auto) 4.3 TH/MM3 Lymphocytes # (Auto) 1.8 TH/MM3 Monocytes # (Auto) 0.5 TH/MM3 Eosinophils # (Auto) 0.1 TH/MM3 Basophils # (Auto) 0.0 TH/MM3 CBC Comment DIFF FINAL Differential Comment Prothrombin Time 10.0 SEC Prothromb Time International Ratio 0.9 RATIO Blood Urea Nitrogen 13 MG/DL Creatinine 0.65 MG/DL Random Glucose 181 MG/DL Albumin 3.4 GM/DL Calcium Level 8.6 MG/DL Phosphorus Level 3.9 MG/DL Magnesium Level 2.0 MG/DL Alkaline Phosphatase 115 U/L Total Bilirubin 0.2 MG/DL Sodium Level 132 MEQ/L Potassium Level 4.0 MEQ/L Chloride Level 102 MEQ/L Carbon Dioxide Level 21.1 MEQ/L Anion Gap 9 MEQ/L Estimat Glomerular Filtration Rate 135 ML/MIN Imaging Last Impressions Neck CTA 04/07/172021 Signed Impressions: Service Date/Time: Friday, April 07, 2017 22:35 - CONCLUSION: 1. Bovine arch. Arch vessels, carotids and vertebrals are all patent with no significant atherosclerotic disease. 2. Patient is left vertebral dominant. Sanchez Ruth MD Head CTA 04/07/172021 Signed Impressions: Service Date/Time: Sunday, April 07, 2017 22:35 - CONCLUSION: Intracranial vessels are all patent without aneurysmal disease. Kris Moise MD Head CT 04/07/17 1211 Signed Impressions: Service Date/Time: Friday, April 07, 2017 14:12 - CONCLUSION: No acute intracranial abnormality. Leon Qureshi MD Carotid Artery Ultrasound 04/07/17 0000 Signed Impressions: Service Date/Time: Friday, April 07, 2017 22:02 - CONCLUSION: No evidence for hemodynamically significant stenosis. Dinah Muñoz MD Objective Remarks GENERAL: This is a well-nourished, well-developed patient, in no apparent distress. Awake and alert. Appears comfortable. SKIN: No rashes, ecchymoses or lesions. Cool and dry. Subjective decreased sensation left side of face. No facial droop appreciated. Multiple tattoos HEAD: Atraumatic. Normocephalic. No temporal or scalp tenderness. EYES: Pupils equal round and reactive. Extraocular motions intact. No scleral icterus. No injection or drainage. Tongue is midline ENT: Nose without bleeding or purulent drainage. Throat without erythema, tonsillar hypertrophy or exudate. Uvula midline. Airway patent. Tongue is midline NECK: Trachea midline. No lymphadenopathy. Supple, nontender, no meningeal signs. CARDIOVASCULAR: Regular rate and rhythm without murmurs, gallops, or rubs. S1- S2 no S3 or S4 no heave or thrill RESPIRATORY: Clear to auscultation. Breath sounds equal bilaterally. No wheezes , rales, or rhonchi. GASTROINTESTINAL: Abdomen soft, non-tender, nondistended. No hepato-splenomegaly , or palpable masses. No guarding. MUSCULOSKELETAL: Extremities without clubbing, cyanosis, or edema. No joint tenderness, effusion, or edema noted. No calf tenderness. NEUROLOGICAL: Awake and alert. Slightly weak left upper and lower extremity motor function in comparison to right. Subjective sensation decreased to light touch in left upper and lower extremity. Normal speech. Insight and judgment poor mood and behavior is somewhat appropriate Procedures None Medications and IVs Current Medications Sodium Chloride (NS Flush) 2 ml UNSCH PRN IVF FLUSH AFTER USING IV ACCESS; Start 04/07/17 at 12:15 Morphine Sulfate (Morphine Inj) 2 mg ONCE ONCE IV PUSH Last administered on 15:34; Start 04/07/17 at 15:15; Stop 04/07/17 at 15:16; Status DC Ondansetron HCl (Zofran Inj) 4 mg ONCE ONCE IV PUSH Last administered on 15:35; Start 04/07/17 at 15:15; Stop 04/07/17 at 15:16; Status DC Dextrose (D50w (Vial) Inj) 50 ml UNSCH PRN IV HYPOGLYCEMIA-SEE COMMENTS; Start 04/07/17 at 15:30 Glucagon (Glucagon Inj) 1 mg UNSCH PRN OTHER HYPOGLYCEMIA-SEE COMMENTS; Start 04/07/17 at 15:30 Insulin Aspart (NovoLOG SUPPLEMENTAL SCALE) 1 ACHS SLIDING SCALE SQ Last administered on 04/09/17 11:00; Start 04/07/17 at 16:00 IV Flush (NS Flush) 2 ml BID IV FLUSH Last administered on 04/09/17 09:00; Start 04/07/17 at 21:00 IV Flush (NS Flush) 2 ml UNSCH PRN IV FLUSH FLUSH AFTER USING IV ACCESS; Start 04/07/17 at 15:30 Aspirin (Aspirin) 325 mg DAILY PO Last administered on 04/09/17 10:29; Start 04/07/17 at 15:30 Atorvastatin Calcium (Lipitor) 20 mg HS PO Last administered on 04/08/17 21:52 ; Start 04/07/17 at 21:00 Dextrose (D50w (Vial) Inj) 50 ml UNSCH PRN IV PUSH HYPOGLYCEMIA-SEE COMMENTS; Start 04/07/17 at 15:30 Glucagon (Glucagon Inj) 1 mg UNSCH PRN OTHER HYPOGLYCEMIA-SEE COMMENTS; Start 04/07/17 at 15:30 Enoxaparin Sodium (Lovenox Inj) 40 mg Q24H SQ ; Start 04/07/17 at 15:30 Sodium Chloride (NS Flush) 2 ml UNSCH PRN IV FLUSH FLUSH AFTER USING IV ACCESS ; Start 04/07/17 at 15:30 Sodium Chloride (NS Flush) 2 ml BID IV FLUSH Last administered on 04/09/17 09: 00; Start 04/07/17 at 21:00 Ondansetron HCl (Zofran Inj) 4 mg Q6H PRN IVP NAUSEA OR VOMITING; Start at 15:30 Prochlorperazine (Compazine Supp) 25 mg Q12H PRN RECTAL NAUSEA OR VOMITING; Start 04/07/17 at 15:30 Acetaminophen (Tylenol) 650 mg Q6H PRN PO PAIN SCALE 1 TO 2; Start 04/07/17 at 15:30 Oxycodone HCl (Roxicodone) 10 mg Q4H PRN PO PAIN SCALE 6 TO 10 Last administered on 04/08/17 16:35; Start 04/07/17 at 15:30 Morphine Sulfate (Morphine Inj) 4 mg Q3H PRN IV Pain 6-10;if unable to take PO ; Start 04/07/17 at 15:30 Hydromorphone HCl (Dilaudid Pf Inj) 0.5 mg Q3H PRN IV Pain 3-5; if unable to take PO; Start 04/07/17 at 15:30 Oxycodone HCl (Roxicodone) 5 mg Q4H PRN PO PAIN SCALE 3 TO 5; Start 04/07/17 at 15:30; Stop 04/07/17 at 18:07; Status DC Naloxone HCl (Narcan Inj) 0.4 mg UNSCH PRN IV SEE LABEL COMMENTS; Start at 15:30 Senna/Docusate Sodium (Bridgett-Colace) 1 tab BID PO Last administered on 21:52; Start 04/07/17 at 21:00 Magnesium Hydroxide (Milk Of Magnesia Liq) 30 ml Q12H PRN PO MILD - MODERATE CONSTIPATION; Start 04/07/17 at 15:30 Sennosides (Senokot) 17.2 mg Q12H PRN PO MODERATE - SEVERE CONSTIPATION; Start 04/07/17 at 15:30 Bisacodyl (Dulcolax Supp) 10 mg DAILY PRN RECTAL SEVERE CONSITIPATION; Start at 15:30 Lactulose (Lactulose Liq) 30 ml DAILY PRN PO SEVERE CONSITIPATION; Start at 15:30 Alprazolam (Xanax) 2 mg Q8H PRN PO ANXIETY Last administered on 04/09/17 15:02 ; Start 04/07/17 at 16:30 Insulin Detemir (Levemir Inj) 40 units HS SQ Last administered on 04/08/17 22: 45; Start 04/07/17 at 21:00 Levetriacetam (Keppra) 500 mg BID PO Last administered on 04/09/17 10:28; Start 04/07/17 at 21:00 Oxycodone HCl (Roxicodone) 30 mg Q4H PRN PO PAIN 1-10 Last administered on 04/08 12:55; Start 04/07/17 at 18:15; Stop 04/08/17 at 15:36; Status DC Sodium Chloride 1,000 ml @ 75 mls/hr [id number] IV Last administered on 21:41; Start 04/07/17 at 20:22 Iohexol (Omnipaque 350 Inj) 100 ml STK-MED ONCE IV ; Start 04/07/17 at 22:44; Stop 04/07/17 at 22:45; Status DC Levothyroxine Sodium (Synthroid) 50 mcg DAILY PO ; Start 04/08/17 at 15:00; Stop 04/08/17 at 15:01; Status DC Levothyroxine Sodium (Synthroid) 50 mcg DAILY@0600 PO Last administered on 04/09 05:45; Start 04/08/17 at 15:15 Oxycodone HCl (Roxicodone) 30 mg Q6H PRN PO PAIN 1-10; Start 04/08/17 at 15:45 ; Stop 04/08/17 at 15:50; Status DC Oxycodone HCl (Roxicodone) 30 mg Q4H PRN PO PAIN SCALE 1 TO 10 Last administered on 04/09/17 15:06; Start 04/08/17 at 17:15 Urinary Catheter: No Vascular Central Line Catheter: No A/P Problem List: (1) Seizure ICD Code: R56.9 - Unspecified convulsions Status: Acute (2) Diabetes ICD Code: E11.9 - Type 2 diabetes mellitus without complications Status: Acute (3) Back pain, chronic ICD Code: M54.9 - Dorsalgia, unspecified; G89.29 - Other chronic pain Status: Acute (4) Weakness ICD Code: R53.1 - Weakness Status: Acute (5) Left-sided weakness ICD Code: R53.1 - Weakness Status: Acute (6) Cardiac pacemaker ICD Code: Z95.0 - Presence of cardiac pacemaker Status: Acute (7) Heart palpitations ICD Code: R00.2 - Palpitations Status: Acute (8) Type 2 diabetes mellitus ICD Code: E11.9 - Type 2 diabetes mellitus without complications Status: Acute (9) Atypical chest pain ICD Code: R07.89 - Other chest pain Status: Acute (10) Drug-seeking behavior ICD Code: Z76.5 - Malingerer [conscious simulation] (11) Noncompliance ICD Code: Z91.19 - Patient's noncompliance with other medical treatment and regimen (12) Atypical chest pain ICD Code: R07.89 - Other chest pain Status: Acute (13) Malingering ICD Code: Z76.5 - Malingerer [conscious simulation] (14) Hypothyroidism ICD Code: E03.9 - Hypothyroidism, unspecified (15) Hyperlipidemia ICD Code: E78.5 - Hyperlipidemia, unspecified Assessment and Plan 42-year-old male with a past medical history significant for degenerative disc disease of cervical and lumbar spine status post previous fusions, seizure disorder, diabetes, pancreatitis, dyslipidemia and history of pacemaker implantation in 2014 with complication of a PE/DVT who presents to [facility] ED with complaints of sudden onset of left upper and lower extremity weakness with numbness and tingling since yesterday morning. Left upper and lower extremity weakness with numbness and tingling Possible TIA/CVA Initial CT of the head personally reviewed and shows no evidence of acute intracranial abnormality Unable to obtain MRI study secondary to patient's pacemaker implantation Will repeat CT scan tomorrow Consult neurology Carotid ultrasound Obtain 2D echocardiogram Neuro checks q2hx12 then q4h Obtain thyroid studies and hemoglobin A1c PT/OT eval/tx Speech therapy consult for swallow evaluation Cycle cardiac enzymes - initial troponin less than 0.02 Obtain fasting lipid panel Lipitor 20 mg daily Aspirin 325 mg daily Continuous cardiac monitoring DM Random glucose 233 Resume patient's home dose of long acting insulin Obtain A1c Accu-Cheks Insulin sliding scale Diabetic diet Hyponatremia Mild am labs to monitor trend H/O Pacemaker implantation for arrhythmia Strong FMHX of CAD/[place] initial troponin negative recent stress test 03/20/17 negative for ischemia monitor Seizure disorder No history of seizure for the past 5-6 years per patient report Continue home dose of Keppra Recent RCR with bone biopsy revealing newly dx'd cancer ppr patient to keep previously scheduled appt with oncologist in [place] DVT prophylaxis Lovenox 40 mg subcutaneous Bilateral SCD/ALEJANDRO hose Drug-seeking behavior Malingering Patient has been at multiple [facility] in [place] within the past couple months with the same complaints and even had it 2 days ago for the same complaint. He had workup there and was discharged and recommended to be on statin and aspirin which I don't believe he is taking either and neglected to mention this admission and the recent tests he had DC TO HOME AFTER CT SCAN OF HEAD IS NEGATIVE AND STRESS TEST IS NEGATIVE RW WRITTEN RESUME HOME PAIN MEDS-- FOLLOW WITH PCP AND PAIN MANAGEMENT Discharge Planning Discharge to home when cleared by neurology Problem Qualifiers (1) Hypothyroidism: Qualified Codes: E03.9 - Hypothyroidism, unspecified (2) Hyperlipidemia: Qualified Codes: E78.5 - Hyperlipidemia, unspecified Darvin Hand DO Apr 09, 2017 15:45
[2017-04-09] MEDS ORDERED: ASPI81CH37 CHEW (15:48)
--- NOTE | 2017-04-09 15:49 | ECHRPT ---
Indication: veg CONCLUSIONS The left ventricular systolic function is normal with an estimated ejection fraction in the range of 55-60%. Normal left ventricular size. There is assymetric septal hypertrophy. No significant valvulopathies BP: 149 / 103 HR: 91 Rhythm: Sinus MEASUREMENTS (Male / Female) Normal Values Technical Quality:Technically difficult study 2D ECHO LV Diastolic Diameter PLAX 4.5 cm 4.2 - 5.9 / 3.9 - 5.3 cm LV Systolic Diameter PLAX 3.4 cm IVS Diastolic Thickness 1.7 cm 0.6 - 1.0 / 0.6 - 0.9 cm LVPW Diastolic Thickness 0.8 cm 0.6 - 1.0 / 0.6 - 0.9 cm LV Relative Wall Thickness 0.6 RV Internal Dim ED PLAX 2.8 cm FINDINGS LEFT VENTRICLE The left ventricular systolic function is normal with an estimated ejection fraction in the range of 55-60%. Normal left ventricular size. There is assymetric septal hypertrophy. RIGHT VENTRICLE Normal right ventricular size and systolic function. LEFT ATRIUM The left atrial size is normal. RIGHT ATRIUM The right atrial size is normal. ATRIAL SEPTUM Normal atrial septal thickness without atrial level shunting by limited color doppler interrogation. AORTA The aortic root and proximal ascending aorta are normal in size on limited imaging. MITRAL VALVE Structurally normal mitral valve. AORTIC VALVE Trileaflet aortic valve. No aortic valve stenosis or regurgitation. TRICUSPID VALVE Structurally normal tricuspid valve. PULMONARY VALVE The pulmonary valve is not well visualized. VESSELS The inferior vena cava is normal in size. PERICARDIUM No pericardial effusion. Silvio Calix MD (Electronically Signed) Final Date:09 April 2017 15:48
[2017-04-09 15:56] LABS: HEMOGLOBIN A1a 1.1 %; HEMOGLOBIN A1b 2.7 %; HEMOGLOBIN LA1C 2.5 %; HEMOGLOBIN P3 4.2 %
[2017-04-09 16:00] VITALS: BP 111/79; PULSE 87; RESP 16; TEMP 97.5; O2SAT 96
--- NOTE | 2017-04-09 16:32 | MG ---
cc: RHONDA DELEON Lab No: Date: 04/09/2017 Age: Sex: M Race: DATE OF [address] Carr. MEDICAL HISTORY History of seizures, CO, pacemaker, back pain, joint pain, paresthesia, PTSD and falls. MEDICATIONS 1. Oxycodone. 2. Synthroid. 3. Lipitor. 4. Keppra. 5. Insulin. 6. Xanax. 7. Aspirin. DESCRIPTION The background activity is 9-10 Hz alpha, located posteriorly bilateral and symmetrical attenuates to eye opening. Photic stimulation did not elicit a driving response. Hyperventilation was not done. During the recording there was drop out of the background rhythm with slowing and appearance of K complexes and transitioned to stage II sleep. There are no electrographic seizures or epileptiform discharges seen during the recording. INTERPRETATION This is a normal awake and sleep EEG. Absence of electrographic seizures or epileptiform discharges does not rule out a diagnosis of epilepsy. Clinical correlation is recommended. MD ALICIA Hernandes/RIK /4:01 PM /4:15 PM
[2017-04-09 20:00] VITALS: BP 119/83; PULSE 76; PULSE 79; RESP 18; TEMP 98.2; O2SAT 97
[2017-04-09] MEDS: ATORVASTATIN 10 MG TAB PO SCH (20:08)
[2017-04-09] MEDS: INSULIN DETEMIR 100 UNITS/ML VIAL SQ SCH (21:49)
[2017-04-10] VITALS: BP 123/84; PULSE 72; RESP 18; TEMP 98.3; O2SAT 97
[2017-04-10 04:00] VITALS: BP 126/86; PULSE 77; RESP 18; TEMP 98.1; O2SAT 97
[2017-04-10] MEDS: LEVOTHYROXINE SODIUM 50 MCG TAB PO SCH (06:00)
[2017-04-10] MEDS: INSULIN ASPART SUPPLEMENTAL SCALE SQ SCH ×2 (06:04→13:07)
[2017-04-10 06:16] LABS: INTERNATIONAL NORMALIZED RATIO 0.9 RATIO; PROTHROMBIN TIME - PATIENT 10.1 SEC (9.8-11.6)
--- NOTE | 2017-04-10 06:57 | HHI.PR ---
Objective Vital Signs Date Time Temp Pulse Resp B/P (MAP) Pulse Ox O2 Delivery O2 Flow Rate FiO2 04/10/17 00:00 98.3 72 18 123/84 (97) 97 04/09/17 21:30 21 04/09/17 20:00 98.2 76 18 119/83 (95) 97 04/09/17 20:00 79 04/09/17 16:00 97.5 87 16 111/79 (90) 96 04/09/17 14:00 84 04/09/17 12:00 98.0 80 16 104/70 (81) 98 04/09/17 08:00 97.8 79 16 107/73 (84) 95 I/O 04/09/17 04/09/17 04/09/17 04/10/17 04/10/17 04/10/17 07:00 15:00 23:00 07:00 15:00 23:00 Intake Total 560 ml Balance 560 ml Intake Oral 560 ml # Voids 1 2 # Bowel Movements 1 Result Diagram: 04/09/17 0850 04/09/17 0850 Objective Remarks still some left numb nl speech Assessment and Plan Assessment and Plan imp asa ct c spine neg major abn could not do mri with st akosua acc to rep can dc on asa 81 mg echo nl Neel Carr MD Apr 10, 2017 06:57
[2017-04-10] MEDS: ASPIRIN 325 MG TAB PO SCH (08:12)
[2017-04-10] MEDS: levETIRAcetam 500 MG TAB PO SCH (08:14)
[2017-04-10] MEDS: ALPRAZolam 1 MG TAB PO PRN (08:14)
[2017-04-10] MEDS: DOCUSATE SODIUM 50 MG/SENNA 8.6 MG TAB PO SCH (08:15)
[2017-04-10] MEDS: SODIUM CHLORIDE 0.9% FLUSH 10 ML FLUSH IV FLUSH SCH (08:15)
[2017-04-10] MEDS: SODIUM CHLORIDE 0.9% FLUSH 5 ML FLUSH IV FLUSH SCH (08:15)
[2017-04-10] MEDS ORDERED: REGADENOSON INJ 0.4 MG/5 ML SYR ONE (09:09)
--- NOTE | 2017-04-10 11:06 | RADRPT ---
EXAM DATE/TIME: 04/09/2017 13:01 [place] COMPARISON: MYOCARDIAL PERF PHARM SPECT, GATED W/EF, March 20, 2017, 11:35. INDICATIONS : Left sided chest pain radiating to left arm. Angina. Myocardial infarction. DOSE: 30.7 mCi Tc99m Myoview at stress. 31.2 mCi Tc99m Myoview at rest. 0.4 mg Lexiscan STRESS SYMPTOMS: Chest pain and dyspnea. EJECTION FRACTION: 57% MEDICAL HISTORY : Diabetes mellitus type 2. SURGICAL HISTORY : Pacemaker. ENCOUNTER: Initial ACUITY: 1 day PAIN SCALE: 3/10 LOCATION: Left chest TECHNIQUE: The patient underwent pharmacologic stress with infusion of prescribed dose. Continuous ECG tracing was monitored during stress. Gated SPECT imaging was performed after stress and conventional SPECT i maging was performed at rest. The examination was performed on a SPECT/CT scanner, both attenuation and non-corrected datasets were reviewed. FINDINGS: DISTRIBUTION: The maximum perfused segment at stress is in the inferior wall. PERFUSION STUDY: The pattern of perfusion at stress is within normal limits. No fixed or reversible defects observed. GATED STUDY: There is intact wall motion and thickening without hypokinetic or dyskinetic segments. CONCLUSION: 1. No reversible defects observed to suggest acute ischemia. RISK CATEGORY: Low Esau Xiao Jr., MD on April 10, 2017 at 11:00 Board Certified Radiologist. This report was verified electronically.
[2017-04-10 12:00] VITALS: BP 113/69; PULSE 83; RESP 16; TEMP 97.8; O2SAT 96
[2017-04-10] MEDS ORDERED: ASPI81TA11 PO (12:06)
--- NOTE | 2017-04-10 12:12 | HHI.PR ---
Subjective Remarks Follow-up TIA/CVA 04/10/17-patient seen and examined, some left upper extremity weakness otherwise stable. Patient asking for narcotics on discharge however was told that I would not give him any narcotics to which patient was agreeable. Objective Vitals Vital Signs Date Time Temp Pulse Resp B/P (MAP) Pulse Ox O2 Delivery O2 Flow Rate FiO2 04/10/17 04:00 98.1 77 18 126/86 (99) 97 04/10/17 00:00 98.3 72 18 123/84 (97) 97 04/09/17 21:30 21 04/09/17 20:00 98.2 76 18 119/83 (95) 97 04/09/17 20:00 79 04/09/17 16:00 97.5 87 16 111/79 (90) 96 04/09/17 14:00 84 I/O 04/09/17 04/09/17 04/09/17 04/10/17 04/10/17 04/10/17 07:00 15:00 23:00 07:00 15:00 23:00 Intake Total 560 ml Balance 560 ml Intake Oral 560 ml # Voids 1 2 # Bowel Movements 1 Result Diagram: 04/09/17 0850 04/09/17 0850 Imaging Last Impressions Head CT 04/08/17 0600 Signed Impressions: Service Date/Time: Saturday, April 08, 2017 20:56 - CONCLUSION: Unremarkable study. Dinah Muñoz MD Neck CTA 04/07/172021 Signed Impressions: Service Date/Time: Friday, April 07, 2017 22:35 - CONCLUSION: 1. Bovine arch. Arch vessels, carotids and vertebrals are all patent with no significant atherosclerotic disease. 2. Patient is left vertebral dominant. Sanchez Ruth MD Head CTA 04/07/172021 Signed Impressions: Service Date/Time: Friday, April 07, 2017 22:35 - CONCLUSION: Intracranial vessels are all patent without aneurysmal disease. Kris Moise MD Carotid Artery Ultrasound 04/07/17 0000 Signed Impressions: Service Date/Time: Friday, April 07, 2017 22:02 - CONCLUSION: No evidence for hemodynamically significant stenosis. Dinah Muñoz MD Objective Remarks GENERAL: NAD SKIN: Warm and dry. HEAD: Normocephalic. EYES: No scleral icterus. No injection or drainage. NECK: Supple, trachea midline. No JVD or lymphadenopathy. CARDIOVASCULAR: Regular rate and rhythm without murmurs, gallops, or rubs. RESPIRATORY: Breath sounds equal bilaterally. No accessory muscle use. GASTROINTESTINAL: Abdomen soft, non-tender, nondistended. MUSCULOSKELETAL: No cyanosis, or edema. LUE 4/5 motor BACK: Nontender without obvious deformity. No CVA tenderness. Procedures None A/P Problem List: (1) Seizure ICD Code: R56.9 - Unspecified convulsions Status: Acute (2) Diabetes ICD Code: E11.9 - Type 2 diabetes mellitus without complications Status: Acute (3) Back pain, chronic ICD Code: M54.9 - Dorsalgia, unspecified; G89.29 - Other chronic pain Status: Acute (4) Weakness ICD Code: R53.1 - Weakness Status: Acute (5) Left-sided weakness ICD Code: R53.1 - Weakness Status: Acute (6) Cardiac pacemaker ICD Code: Z95.0 - Presence of cardiac pacemaker Status: Acute (7) Heart palpitations ICD Code: R00.2 - Palpitations Status: Acute (8) Type 2 diabetes mellitus ICD Code: E11.9 - Type 2 diabetes mellitus without complications Status: Acute (9) Atypical chest pain ICD Code: R07.89 - Other chest pain Status: Acute (10) Drug-seeking behavior ICD Code: Z76.5 - Malingerer [conscious simulation] (11) Noncompliance ICD Code: Z91.19 - Patient's noncompliance with other medical treatment and regimen (12) Atypical chest pain ICD Code: R07.89 - Other chest pain Status: Acute (13) Malingering ICD Code: Z76.5 - Malingerer [conscious simulation] (14) Hypothyroidism ICD Code: E03.9 - Hypothyroidism, unspecified (15) Hyperlipidemia ICD Code: E78.5 - Hyperlipidemia, unspecified Assessment and Plan 42-year-old man with Left upper and lower extremity weakness with numbness and tingling Possible TIA/CVA Appreciate input from neurology Continue aspirin MRI brain could not be performed secondary to patient with history of pacemaker Normal 2-D echo DM Resume patient's home dose of long acting insulin Accu-Cheks Insulin sliding scale Diabetic diet Hyponatremia Mild am labs to monitor trend H/O Pacemaker implantation for arrhythmia Strong FMHX of CAD/RI initial troponin negative recent stress test 03/20/17 negative for ischemia monitor Seizure disorder No history of seizure for the past 5-6 years per patient report Continue home dose of Keppra Recent RCR with bone biopsy revealing newly dx'd cancer ppr patient to keep previously scheduled appt with oncologist in [place] DVT prophylaxis Lovenox 40 mg subcutaneous Bilateral SCD/ALEJANDRO hose Problem Qualifiers (1) Hypothyroidism: Qualified Codes: E03.9 - Hypothyroidism, unspecified (2) Hyperlipidemia: Qualified Codes: E78.5 - Hyperlipidemia, unspecified Leon Courtney MD Apr 10, 2017 12:12
--- NOTE | 2017-04-10 12:13 | HHI.DS ---
Discharge Summary Admission Date Apr 07, 2017 at 15:11 Discharge Date: Apr 10, 2017 Admitting Diagnosis left-sided weakness r/o CVA (1) Seizure ICD Code: R56.9 - Unspecified convulsions Diagnosis: Secondary Status: Acute (2) Diabetes ICD Code: E11.9 - Type 2 diabetes mellitus without complications Diagnosis: Secondary Status: Acute (3) Back pain, chronic ICD Code: M54.9 - Dorsalgia, unspecified; G89.29 - Other chronic pain Diagnosis: Secondary Status: Acute (4) Weakness ICD Code: R53.1 - Weakness Diagnosis: Secondary Status: Acute (5) Left-sided weakness ICD Code: R53.1 - Weakness Diagnosis: Principal Status: Acute (6) Cardiac pacemaker ICD Code: Z95.0 - Presence of cardiac pacemaker Status: Acute (7) Heart palpitations ICD Code: R00.2 - Palpitations Diagnosis: Secondary Status: Acute (8) Type 2 diabetes mellitus ICD Code: E11.9 - Type 2 diabetes mellitus without complications Diagnosis: Secondary Status: Acute (9) Atypical chest pain ICD Code: R07.89 - Other chest pain Diagnosis: Secondary Status: Acute (10) Drug-seeking behavior ICD Code: Z76.5 - Malingerer [conscious simulation] Diagnosis: Principal (11) Noncompliance ICD Code: Z91.19 - Patient's noncompliance with other medical treatment and regimen Diagnosis: Principal (12) Atypical chest pain ICD Code: R07.89 - Other chest pain Diagnosis: Secondary Status: Acute (13) Malingering ICD Code: Z76.5 - Malingerer [conscious simulation] Diagnosis: Principal (14) Hypothyroidism ICD Code: E03.9 - Hypothyroidism, unspecified Diagnosis: Secondary (15) Hyperlipidemia ICD Code: E78.5 - Hyperlipidemia, unspecified Procedures None Brief History - From Admission This is a 42-year-old male with a past medical history significant for degenerative disc disease of cervical and lumbar spine status post previous fusions, seizure disorder, diabetes, pancreatitis, dyslipidemia and history of pacemaker implantation in 2014 with complication of a PE/DVT who presents to [facility] ED with complaints of sudden onset of left upper and lower extremity weakness with numbness and tingling since yesterday morning. Patient states that his symptoms have been progressive prompting him to come in to the ED. He was seen in the [place] ED earlier today but left AGAINST MEDICAL ADVICE. Patient denies any associated headache, dizziness, lightheadedness, presyncope/syncopal episode, diaphoresis or vision changes. He denies any facial droop or slurred speech. He states his last seizure was 5-6 years ago. He denies any bowel or bladder incontinence. Patient states he is unable to take any NSAID or Tylenol as advised by his GI physician secondary to pancreas and stomach issues. Patient denies any recent illness. He denies any fever or chills. He denies any chest pain or shortness of breath. He denies any nausea , vomiting or abdominal pain. He denies any complaints of constipation, diarrhea, dysuria or hematuria. He does report he had some palpitations for one day last week that resolved on their own. EKG done in [place] showed normal sinus rhythm with no evidence of STEMI or ischemia. CT of the head was obtained which showed no acute intracranial abnormality. Per ED note, patient' s E force revealed patients receiving multiple controlled substances from multiple providers. In January he received 268 oxycodone, 90 Adderall and 60 Xanax. In February patient received 250 oxycodone, 90 Adderall and 120 Xanax. So far in March, patient has received 90 oxycodone and 30 Xanax. Additionally, patient informs me that he had a recent rotator cuff repair surgery with concomitant bone biopsy for suspicious lesion and was recently told that he has cancer. He has a follow-up appointment with his oncologist next week in [place]. Going around to multiple hospitals in the [facility] as well as now appears to be General acute hospital also. Patient had chronic neck issues and is had shoulder surgery as well as back surgery which might explain some of this numbness CBC/BMP: 04/09/17 0850 04/09/17 0850 Significant Findings Laboratory Tests Test 04/07/17 12:55 04/07/17 13:50 04/07/17 20:25 04/08/17 03:10 Mean Platelet Volume 6.5 FL (7.0-11.0) Random Glucose 233 MG/DL (74-106) 247 MG/DL (74-106) Sodium Level 135 MEQ/L (136-145) 135 MEQ/L (136-145) Hemoglobin A1c 10.0 % (4.3-6.0) 10.1 % (4.3-6.0) Troponin I LESS THAN 0.02 NG/ML LESS THAN 0.02 NG/ML LESS THAN 0.02 NG/ML Urine Benzodiazepines Screen POS (NEG) Alkaline Phosphatase 119 U/L (45-117) Aspartate Amino Transf (AST/SGOT) 14 U/L (15-37) Total Bilirubin 0.1 MG/DL (0.2-1.0) Triglycerides Level 276 MG/DL (42-150) HDL Cholesterol 35.9 MG/DL (40.0-60.0) Thyroid Stimulating Hormone 3rd Gen 15.200 uIU/ML (0.358-3.740) Test 04/08/17 09:49 04/09/17 08:50 04/10/17 05:26 Troponin I LESS THAN 0.02 NG/ML Folate GREATER THAN 20.0 NG/ML Mean Platelet Volume 6.8 FL (7.0-11.0) Random Glucose 181 MG/DL (74-106) Sodium Level 132 MEQ/L (136-145) Imaging Last Impressions Head CT 04/08/17 0600 Signed Impressions: Service Date/Time: Saturday, April 08, 2017 20:56 - CONCLUSION: Unremarkable study. Dinah Muñoz MD Neck CTA 04/07/172021 Signed Impressions: Service Date/Time: Friday, April 07, 2017 22:35 - CONCLUSION: 1. Bovine arch. Arch vessels, carotids and vertebrals are all patent with no significant atherosclerotic disease. 2. Patient is left vertebral dominant. Sanchez Ruth MD Head CTA 04/07/172021 Signed Impressions: Service Date/Time: Friday, April 07, 2017 22:35 - CONCLUSION: Intracranial vessels are all patent without aneurysmal disease. Kris Moise MD Carotid Artery Ultrasound 04/07/17 0000 Signed Impressions: Service Date/Time: Friday, April 07, 2017 22:02 - CONCLUSION: No evidence for hemodynamically significant stenosis. Dinah Muñoz MD PE at Discharge GENERAL: NAD SKIN: Warm and dry. HEAD: Normocephalic. EYES: No scleral icterus. No injection or drainage. NECK: Supple, trachea midline. No JVD or lymphadenopathy. CARDIOVASCULAR: Regular rate and rhythm without murmurs, gallops, or rubs. RESPIRATORY: Breath sounds equal bilaterally. No accessory muscle use. GASTROINTESTINAL: Abdomen soft, non-tender, nondistended. MUSCULOSKELETAL: No cyanosis, or edema. LUE 4/5 motor BACK: Nontender without obvious deformity. No CVA tenderness. Hospital Course Left upper and lower extremity weakness with numbness and tingling Possible TIA/CVA Appreciate input from neurology Continue aspirin MRI brain could not be performed secondary to patient with history of pacemaker DM Resume patient's home dose of long acting insulin Accu-Cheks Insulin sliding scale Diabetic diet Hyponatremia Mild am labs to monitor trend H/O Pacemaker implantation for arrhythmia Strong FMHX of CAD/RI initial troponin negative recent stress test 03/20/17 negative for ischemia monitor Seizure disorder No history of seizure for the past 5-6 years per patient report Continue home dose of Keppra Recent RCR with bone biopsy revealing newly dx'd cancer ppr patient to keep previously scheduled appt with oncologist in [place] DVT prophylaxis Lovenox 40 mg subcutaneous Bilateral SCD/ALEJANDRO hose Pt Condition on Discharge: Good Discharge Disposition: Discharge Home Discharge Time: <= 30 minutes Discharge Instructions DIET: Follow Instructions for: Heart Healthy Diet, Diabetic Diet Speech Therapy-Diet Recommends: Regular Activities you can perform: Regular-No Restrictions Follow up Referrals: Neurology - 2 Weeks with Neel Carr MD Pain Management - 2-3 Days PCP Follow-up - 3-5 Days New Medications: Aspirin (Aspirin Low Dose) 81 Mg Chew 81 MG CHEW DAILY for Blood Clot Prevention, #90 TAB [address] (Aspirin EC) 81 Mg Tabdr 81 MG PO DAILY for Prevent Blood Clot, #30 TAB 0 Refills Atorvastatin (Lipitor) 10 Mg Tab 20 MG PO HS for Cholesterol Management, #30 TAB Levothyroxine (Synthroid) 50 Mcg Tab 50 MCG PO DAILY@0600 for Thyroid, #30 TAB Continued Medications: Alprazolam (Xanax) 2 Mg Tab 2 MG PO Q8H PRN for ANXIETY, TAB 0 Refills Insulin Detemir Inj (Levemir Inj) 1,000 unit/ 10 ML Vial 40 UNITS SQ HS for Blood Sugar Management, VIAL 0 Refills Do not mix with any other Insulin. Insulin Lispro (Human) Inj (Humalog Inj) 1,000 Unit/10 Ml Vial SQ ACHS for Blood Sugar Management, #1 VIAL 0 Refills Max dose at bedtime:( )units; sugars < 70,(0)units; sugars 150-199,(5)units; sugars 200-249,(10)units; sugars 250-299,(15)units; sugars 300-349,(20)units; sugars more than 349,(25)units. Levetiracetam (Keppra) 500 Mg Tab 500 MG PO BID for Control Seizures, #60 TAB 0 Refills Oxycodone (Oxycodone) 30 Mg Tab 30 MG PO Q4HR PRN for PAIN, TAB 0 Refills Leon Courtney MD Apr 10, 2017 12:13
[2017-04-11 15:51] LABS: VITAMIN B6 7.3 ng/mL (2.1-21.7)
[2017-04-11 21:26] LABS: ALBUMIN SPE 4.44 GM/DL (3.50-5.00); ALPHA 1 GLOBULIN 0.17 GM/DL (0.11-0.29); ALPHA 2 GLOBULIN 0.77 GM/DL (0.22-1.00); BETA GLOBULINS (SPE) 0.81 GM/DL (0.53-1.03)
[2017-04-12 03:53] LABS: THROMBIN TIME FOR LA ND sec (13-19)
== END 2017-04-10 13:32 | disposition home or self-care (01) ==
LOC: NEPE 11:55 → NEDA 15:11 → INTOOBSV 15:11 → N05A 17:27
PROVIDERS: ADMIT Hospitalist; ATTEND Hospitalist
DX: R56.9 Unspecified convulsions (principal); R53.1 Weakness; I10 Essential (primary) hypertension; I48.91 Unspecified atrial fibrillation; M54.9 Dorsalgia, unspecified; E78.5 Hyperlipidemia, unspecified; E87.1 Hypo-osmolality and hyponatremia; G89.29 Other chronic pain; Z76.5 Malingerer [conscious simulation]; E03.9 Hypothyroidism, unspecified; E11.9 Type 2 diabetes mellitus without complications; Z79.4 Long term (current) use of insulin; Z79.82 Long term (current) use of aspirin; Z79.899 Other long term (current) drug therapy; Z91.19 Patient's noncompliance with other medical treatment and regimen; Z86.718 Personal history of other venous thrombosis and embolism; Z86.711 Personal history of pulmonary embolism; Z95.0 Presence of cardiac pacemaker; Z82.3 Family history of stroke
CPT/HCPCS: 70450; 70496; 70498; 72125; 78452; 80048; 80053; 80061; 80307; 81240; 81241; 82550; 82607; 82746; 82948; 83036; 83735; 83921; 84100; 84165; 84207; 84425; 84439; 84443; 84450; 84460; 84484; 85025; 85240; 85300; 85303; 85306; 85610; 85613; 85652; 85730; 86038; 86140; 86147; 86592; 93005; 93017; 93306; 93308; 93880; 94150; 95819; 96125; 96372; 96374; 96375; 97110; 97116; 97162; 97166; 97530; 99283; 99285; A9502; G0378; G8987; G8988; J1815; J2270; J2405; J2785; J7030; Q9967

== ENCOUNTER 2017-06-12 14:20 | Emergency (ER) | payer MEDICARE, MEDICAID ==
[~2017-06-12] VITALS: Ht 188 cm; Wt 122.5 kg
[~2017-06-12 14:20] MED LIST changes: +ASPI81CH37 CHEW; +ASPI81TA11 PO; +LEVO.05 PO; +LIPI10TA PO; +OXYC30TA PO; -OXYCODONE IR
[2017-06-12 14:24] VITALS: BP 177/91; PULSE 80; RESP 15; TEMP 98.4; O2SAT 96
--- NOTE | 2017-06-12 14:34 | PD ---
Physical Exam Date Seen by Provider: Jun 12, 2017 Time Seen by Provider: 14:30 Narrative 42-year-old male with history of seizure disorder as well as cardiac history requiring a pacemaker defibrillator comes in with recurrent history of reported syncope, the patient does not feel his been having seizures and he does not recall the defibrillator going off. Patient denies recent fever, chills, but has had nausea and vomiting. Patient states he feels he said 3 or 4 episodes since Sunday. She is currently on Keppra and hasn't had a true seizure in years. He denies headache or other pain currently. He does report feeling palpitations prior to his episodes. He has an MRI precaution, allergic to nitroglycerin and vancomycin. Data Data Last Documented VS Vital Signs Date Time Temp Pulse Resp B/P (MAP) Pulse Ox O2 Delivery O2 Flow Rate FiO2 06/12/17 14:24 98.4 80 15 177/91 (119) 96 MDM Medical Record Reviewed: Yes Supervised Visit with BENJI: Yes Condition: Stable Jewel Gaxiola Jun 12, 2017 14:34
--- NOTE | 2017-06-12 15:36 | PD ---
HPI Chief Complaint: Syncope/Near-Syncope Time Seen by Provider: 15:33 Travel History International Travel<30 days: No Contact w/Intl Traveler<30days: No Traveled to known affect area: No History of Present Illness HPI PER PATIENT HE HAS HAD AROUND 3 "BLACK OUT EPISODES" SINCE SUNDAY TIL TODAY. DENIES HIS DEFIB GOING OFF, BUT IS UNSURE IF SEIZURE. PT HAS A HISOTRY OF SEIZURE WELL "BLACK OUT SPELLS "...HOWEVER OVER THE PAST 3 DAYS HE HAS ALSO HAD N/V EPISODES, NO GENAO/VISUAL CHANGES/CP/ABDPAIN ASSOCIATED WITH THIS VOMITING EPISODES. 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/DEFIB, HTN, DM, SYNCOPE, HYPOTHYROID PFSH Past Medical History Heart Rhythm Problems: Yes Cardiac Catheterization: No Cardiovascular Problems: Yes High Cholesterol: No Congestive Heart Failure: No Diabetes: Yes Past Surgical History Coronary Artery Bypass Graft: No Pacemaker: Yes Social History Alcohol Use: No Tobacco Use: No Substance Use: No Allergies-Medications (Allergen,Severity, Reaction): Coded Allergies: nitroglycerin (Unverified Allergy, Unknown, 06/12/17) vancomycin (Unverified Allergy, Unknown, 06/12/17) MRI PRECAUTION (Verified Adverse Reaction, Severe, PACEMAKER THE IS NOT A MEDITONIC OR BIOTRONIK 04/09/17 KMD, 06/12/17) [facility] PACER Reported Meds & Prescriptions Reported Meds & Active Scripts Active Aspirin EC (Aspirin) 81 Mg Tabdr 81 Mg PO DAILY Aspirin Low Dose (Aspirin) 81 Mg Chew 81 Mg CHEW DAILY Synthroid (Levothyroxine Sodium) 50 Mcg Tab 50 Mcg PO DAILY@0600 Lipitor (Atorvastatin Calcium) 10 Mg Tab 20 Mg PO HS Reported Oxycodone (Oxycodone HCl) 30 Mg Tab 30 Mg PO Q4HR PRN Levemir Inj (Insulin Detemir) 1,000 unit/ 10 ML Vial 40 Units SQ HS Do not mix with any other Insulin. Xanax (Alprazolam) 2 Mg Tab 2 Mg PO Q8H PRN Humalog Inj (Insulin Human Lispro) 1,000 Unit/10 Ml Vial SQ ACHS Max dose at bedtime:( )units; sugars < 70,(0)units; sugars 150-199,(5)units; sugars 200-249,(10)units; sugars 250-299,(15)units; sugars 300-349,(20)units; sugars more than 349,(25)units. Keppra (Levetiracetam) 500 Mg Tab 500 Mg PO BID Review of Systems General / Constitutional: No: Fever Eyes: No: Visual changes HENT: No: Headaches Cardiovascular: Positive: Syncope Respiratory: No: Shortness of Breath Gastrointestinal: No: Abdominal Pain Genitourinary: No: Dysuria Musculoskeletal: No: Pain Skin: No Rash Neurologic: No: Weakness Psychiatric: No: Depression Endocrine: No: Polydipsia Hematologic/Lymphatic: No: Easy Bruising Physical Exam Narrative GENERAL: SKIN: Warm and dry. HEAD: Atraumatic. Normocephalic. EYES: Pupils equal and round. No scleral icterus. No injection or drainage. ENT: No nasal bleeding or discharge. Mucous membranes pink and moist. NECK: Trachea midline. No JVD. CARDIOVASCULAR: Regular rate and rhythm. RESPIRATORY: No accessory muscle use. Clear to auscultation. Breath sounds equal bilaterally. GASTROINTESTINAL: Abdomen soft, non-tender, nondistended. MUSCULOSKELETAL: Extremities without clubbing, cyanosis, or edema. No obvious deformities. NEUROLOGICAL: Awake and alert. No obvious cranial nerve deficits. Motor grossly within normal limits. Five out of 5 muscle strength in the arms and legs. Normal speech. PSYCHIATRIC: Appropriate mood and affect; insight and judgment normal. Data Data Last Documented VS Vital Signs Date Time Temp Pulse Resp B/P (MAP) Pulse Ox O2 Delivery O2 Flow Rate FiO2 06/12/17 16:59 90 18 141/92 (108) 96 18 158/94 (115) 06/12/17 16:18 99 Room Air 06/12/17 14:24 98.4 Orders Orders Electrocardiogram (06/12/17 14:34) Complete Blood Count With Diff (06/12/17 14:34) Comprehensive Metabolic Panel (06/12/17 14:34) Magnesium (Mg) (06/12/17 14:34) Ckmb (Isoenzyme) Profile (06/12/17 14:34) Troponin I (06/12/17 14:34) Act Partial Throm Time (Ptt) (06/12/17 14:34) Prothrombin Time / Inr (Pt) (06/12/17 14:34) Urinalysis - C+S If Indicated (06/12/17 14:34) Ct Brain W/O Iv Contrast(Rout) (06/12/17 15:33) Orthostatic Vital Signs (06/12/17 15:33) Labs Laboratory Tests Test 06/12/17 15:40 White Blood Count 6.9 TH/MM3 Red Blood Count 4.76 MIL/MM3 Hemoglobin 13.0 GM/DL Hematocrit 38.3 % Mean Corpuscular Volume 80.5 FL Mean Corpuscular Hemoglobin 27.4 PG Mean Corpuscular Hemoglobin Concent 34.0 % Red Cell Distribution Width 14.3 % Platelet Count 244 TH/MM3 Mean Platelet Volume 7.0 FL Neutrophils (%) (Auto) 55.0 % Lymphocytes (%) (Auto) 36.1 % Monocytes (%) (Auto) 7.0 % Eosinophils (%) (Auto) 1.5 % Basophils (%) (Auto) 0.4 % Neutrophils # (Auto) 3.8 TH/MM3 Lymphocytes # (Auto) 2.5 TH/MM3 Monocytes # (Auto) 0.5 TH/MM3 Eosinophils # (Auto) 0.1 TH/MM3 Basophils # (Auto) 0.0 TH/MM3 CBC Comment DIFF FINAL Differential Comment Prothrombin Time 9.7 SEC Prothromb Time International Ratio 0.9 RATIO Activated Partial Thromboplast Time 25.7 SEC Urine Color LIGHT-YELLOW Urine Turbidity CLEAR Urine pH 5.5 Urine Specific [place] 1.024 Urine Protein NEG mg/dL Urine Glucose (UA) 1000 mg/dL Urine Ketones NEG mg/dL Urine Occult Blood NEG Urine Nitrite NEG Urine Bilirubin NEG Urine Urobilinogen LESS THAN 2.0 MG/DL Urine Leukocyte Esterase NEG Urine RBC LESS THAN 1 /hpf Urine Squamous Epithelial Cells <1 /hpf Microscopic Urinalysis Comment CULT NOT INDICATED Blood Urea Nitrogen 10 MG/DL Creatinine 0.82 MG/DL Random Glucose 195 MG/DL Total Protein 8.2 GM/DL Albumin 4.1 GM/DL Calcium Level 8.6 MG/DL Magnesium Level 1.9 MG/DL Alkaline Phosphatase 118 U/L Aspartate Amino Transf (AST/SGOT) 29 U/L Alanine Aminotransferase (ALT/SGPT) 35 U/L Total Bilirubin 0.3 MG/DL Sodium Level 133 MEQ/L Potassium Level 4.4 MEQ/L Chloride Level 100 MEQ/L Carbon Dioxide Level 24.9 MEQ/L Anion Gap 8 MEQ/L Estimat Glomerular Filtration Rate 103 ML/MIN Total Creatine Kinase 87 U/L Troponin I LESS THAN 0.02 NG/ML MDM Medical Decision Making Medical Screen Exam Complete: Yes Emergency Medical Condition: Yes Medical Record Reviewed: Yes Interpretation(s) NSR, NL INTERVALS, NO STEMI PATTERN Differential Diagnosis PANCREATITIS V HEPATITIS V ELECTROLYTE ABNL V DEHYDRATION Narrative Course PT NOT FOUND TO HAVE MAJOR ELECTROLYTE ABNL OUTSIDE OF HYPERGLYCEMIA, NO DEHYDRATION, NO ANEMIA, NO HEPATITIS AND NO PANCREATITIS. CARDIAC ENZYMES NL AND CT HEAD NEG ICH... 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 AT THIS POINT PATIENT STARTED TO GIVE ME A LONG DRAWN OUT EXPLANATION THAT HIS PAIN MANAGEMENT DOCTOR IS NO LONGER PRACTICING AND HE ASKED FOR SOME MEDICATION TO HOLD HIM OVER....AGAINST MY BETTER JUDGEMENT I WILL WRITE PERCOCET FOR FIFTEEN TABS AND WILL D/C ON ZOFRAN WELL. Diagnosis Primary Impression: syncope Patient Instructions: General Instructions, Syncope (ED) Scripts Ondansetron Odt (Zofran Odt) 4 Mg Tab 4 MG SL Q6HR Y for Nausea/Vomiting, #30 TAB 0 Refills Prov: Yusuf Capellan MD 06/12/17 Oxycodone-Acetaminophen (Percocet) 10-325 mg Tab 1 TAB PO Q6H Y for PAIN, #15 TAB 0 Refills Prov: Yusuf Capellan MD 06/12/17 Disposition: 01 DISCHARGE HOME Condition: Stable Yusuf Capellan MD Jun 12, 2017 15:36
[2017-06-12 16:12] LABS: AUTOMATED NEUTROPHIL # 3.8 TH/MM3 (1.8-7.7); BASOPHIL % 0.4 % (0.0-2.0); EOSINOPHIL # 0.1 TH/MM3 (0-0.4); EOSINOPHIL % 1.5 % (0.0-4.0); HEMATOCRIT 38.3 % (39.0-51.0); HEMO FLAGS DIFF FINAL; LYMPH % 36.1 % (9.0-44.0); LYMPHOCYTE # 2.5 TH/MM3 (1.0-4.8); MEAN CELL VOLUME 80.5 FL (80.0-100.0); MEAN CORPUSCULAR HEMOGLOBIN 27.4 PG (27.0-34.0); PLATELET COUNT 244 TH/MM3 (150-450); RED BLOOD COUNT 4.76 MIL/MM3 (4.50-5.90); RED CELL DISTRIBUTION WIDTH 14.3 % (11.6-17.2); WHITE BLOOD COUNT 6.9 TH/MM3 (4.0-11.0)
[2017-06-12 16:18] VITALS: BP 141/92; PULSE 74; RESP 18; O2SAT 99
[2017-06-12 16:18] LABS: APTT (PATIENT) 25.7 SEC (24.3-30.1); INTERNATIONAL NORMALIZED RATIO 0.9 RATIO; PROTHROMBIN TIME - PATIENT 9.7 SEC (9.8-11.6)
[2017-06-12 16:19] LABS: BLOOD, URINE NEG (NEG); COMMENT (UR) CULT NOT INDICATED; CULTURE IF INDICATED CULT NOT INDICATED; GLUCOSE,URINE 1000 mg/dL (NEG); KETONE, URINE NEG (NEG); NITRITE,URINE NEG (NEG); PH, URINE 5.5 (5.0-8.5); SQUAMOUS EPITHELIAL CELL URINE <1 /hpf (0-5); URINE COLOR LIGHT-YELLOW (YELLW/STRAW)
[2017-06-12 16:53] LABS: ALKALINE PHOSPHATASE 118 U/L (45-117); ALT (GPT) 35 U/L (12-78); ANION GAP 8 MEQ/L (5-15); AST (GOT) 29 U/L (15-37); BICARBONATE 24.9 MEQ/L (21.0-32.0); BLOOD UREA NITROGEN 10 MG/DL (7-18); CHLORIDE 100 MEQ/L (98-107); GLOMERULAR FILTRATION RATE 103 ML/MIN (>89); MAGNESIUM 1.9 MG/DL (1.5-2.5); SODIUM (NA) 133 MEQ/L (136-145); TOTAL BILIRUBIN ADULT 0.3 MG/DL (0.2-1.0)
[2017-06-12 16:54] LABS: CREATINE KINASE 87 U/L (39-308); POTASSIUM 4.4 MEQ/L (3.5-5.1)
[2017-06-12 16:59] VITALS: BP_SYST 141; BP_SYST 158; BP_DIAS 92; BP_DIAS 94; RESP 18
--- NOTE | 2017-06-12 17:05 | RADRPT ---
EXAM DATE/TIME: 06/12/2017 16:28 [place] COMPARISON: CT BRAIN W/O CONTRAST, April 08, 2017, 20:56. INDICATIONS : Multiple syncopal episodes today. Nausea and vomiting x3 days. RADIATION DOSE: 38.73 CTDIvol (mGy) MEDICAL HISTORY : Cardiovascular disease. Diabetes mellitus type 2. Seizures. SURGICAL HISTORY : Pacemaker. Fusion, cervical. ENCOUNTER: Initial ACUITY: 1 day PAIN SCALE: 3/10 LOCATION: cranial TECHNIQUE: Multiple contiguous axial images were obtained of the head. Using automated exposure control and adj ustment of the mA and/or kV according to patient size, radiation dose was kept as low as reasonably a chievable to obtain optimal diagnostic quality images. DICOM format image data is available electro nically for review and comparison. FINDINGS: CEREBRUM: The ventricles are normal for age. No evidence of midline shift, mass lesion, hemorrhage or acute in farction. No extra-axial fluid collections are seen. POSTERIOR FOSSA: The cerebellum and brainstem are intact. The 4th ventricle is midline. The cerebellopontine angle i s unremarkable. EXTRACRANIAL: The visualized portion of the orbits is intact. SKULL: The calvaria is intact. No evidence of skull fracture. CONCLUSION: Negative exam. No change from prior. Sanchez Ruth MD on June 12, 2017 at 17:03 Board Certified Radiologist. This report was verified electronically.
[2017-06-12] MEDS ORDERED: PERC10TA27 PO (18:29)
[2017-06-12] MEDS ORDERED: ZOFR4TAB3 SL (18:33)
[2017-06-12 18:58] VITALS: BP 124/78
--- NOTE | 2017-06-12 21:58 | EKG ---
Date Performed: 06/12/2017 Time Performed: 14:53:28 PTAGE: 42 years EKG: Sinus rhythm NORMAL ECG PREVIOUS TRACING : 04/07/2017 12.19 Compared to prior tracing no significant change DOCTOR: [place] Interpretating Date/Time 06/12/2017 21:56:27
== END 2017-06-12 18:59 | disposition home or self-care (01) ==
LOC: NEPE 14:20
DX: R55 Syncope and collapse (principal); R11.10 Vomiting, unspecified; I10 Essential (primary) hypertension; E11.9 Type 2 diabetes mellitus without complications; E03.9 Hypothyroidism, unspecified; R00.1 Bradycardia, unspecified; Z79.4 Long term (current) use of insulin; Z79.82 Long term (current) use of aspirin; Z79.899 Other long term (current) drug therapy
CPT/HCPCS: 70450; 80053; 81001; 82550; 83735; 84484; 85025; 85610; 85730; 93005

== ENCOUNTER 2017-06-28 16:31 | Inpatient (IN) | payer MEDICARE, OTHER ==
[~2017-06-28] VITALS: Ht 188 cm; Wt 128.0 kg
[~2017-06-28 16:31] MED LIST changes: -ASPI81CH37 CHEW; +ASPI81CH6 CHEW; -ASPI81TA11 PO; +ASPI81TA23 PO; +PERC10TA27 PO; +ZOFR4TAB3 SL
[2017-06-28] MEDS ORDERED: IOHEXOL 350 MG/ML 10 ML VIAL (for RAD DIAG) IVCONTRAST ONE (16:32)
[2017-06-28] MEDS ORDERED: SODIUM CHLOR 0.9% 1000 ML INJ 1,000 ML IV ONE (16:40)
[2017-06-28 16:49] VITALS: BP 117/75; PULSE 80; RESP 20; TEMP 97.6; O2SAT 97
--- NOTE | 2017-06-28 16:55 | PD ---
HPI Chief Complaint: stroke alert Time Seen by Provider: 16:33 Travel History International Travel<30 days: No Contact w/Intl Traveler<30days: No Traveled to known affect area: No History of Present Illness HPI The patient is a 42-year-old male who presents to the emergency department for left-sided weakness and numbness. The patient states he developed symptoms at approximately noon which consisted of 40 vision out of the left eye, left-sided facial numbness and left-sided extremity numbness. He also complained of weakness to left arm and the left leg, states he was dragging his left foot when he was ambulating. The patient also complains of mild drift to left upper eyelid. He denies any difficulty with speech. He denies any associated headache, photophobia, chest pain, shortness breath, nausea, vomiting, or abdominal pain. The patient states he was recently diagnosed with a pulmonary embolism one week ago, was placed on Eliquis, after he was diagnosed with a pulmonary embolism at a hospital in [place], [place]. The patient's symptoms are moderate, started at noon, there are no known alleviating or exacerbating factors. PFSH Past Medical History Heart Rhythm Problems: Yes Cardiac Catheterization: No Cardiovascular Problems: Yes High Cholesterol: No Congestive Heart Failure: No Diabetes: Yes Heparin Induced Thrombocytopen: No Hypertension: No Past Surgical History Cardiac Surgery: Yes (pacemaker) Coronary Artery Bypass Graft: No Pacemaker: Yes Social History Alcohol Use: No Tobacco Use: No Substance Use: No Allergies-Medications (Allergen,Severity, Reaction): Coded Allergies: nitroglycerin (Unverified Allergy, Unknown, 06/28/17) vancomycin (Unverified Allergy, Unknown, 06/28/17) MRI PRECAUTION (Verified Adverse Reaction, Severe, PACEMAKER THE IS NOT A MEDITONIC OR BIOTRONIK 04/09/17 K[facility], 06/28/17) [facility] PAC[facility] Reported Meds & Prescriptions Reported Meds & Active Scripts Active Zofran Odt (Ondansetron Odt) 4 Mg Tab 4 Mg SL Q6HR PRN Aspirin Low Dose (Aspirin) 81 Mg Chew 81 Mg CHEW DAILY Lipitor (Atorvastatin Calcium) 10 Mg Tab 20 Mg PO HS Reported Eliquis (Apixaban) 5 Mg Tab 5 Mg PO BID Oxycodone (Oxycodone HCl) 30 Mg Tab 30 Mg PO Q4HR PRN Levemir Inj (Insulin Detemir) 1,000 unit/ 10 ML Vial 40 Units SQ HS Do not mix with any other Insulin. Xanax (Alprazolam) 2 Mg Tab 2 Mg PO Q8H PRN Humalog Inj (Insulin Human Lispro) 1,000 Unit/10 Ml Vial SQ ACHS Max dose at bedtime:( )units; sugars < 70,(0)units; sugars 150-199,(5)units; sugars 200-249,(10)units; sugars 250-299,(15)units; sugars 300-349,(20)units; sugars more than 349,(25)units. Keppra (Levetiracetam) 500 Mg Tab 500 Mg PO BID Review of Systems Except as stated in HPI: all other systems reviewed are Neg General / Constitutional: No: Fever Eyes: Positive: Blurred Vision, Visual changes HENT: No: Headaches, Lightheadedness, Neck Pain Cardiovascular: No: Chest Pain or Discomfort Respiratory: No: Shortness of Breath Gastrointestinal: No: Nausea, Vomiting, Abdominal Pain Musculoskeletal: Positive: Weakness Neurologic: Positive: Weakness, Focal Abnormalities, Paresthesia, Seizures, Sensory Disturbance, No: Dizziness, Headache, Change in Mentation, Slurred Speech, Incontinence Physical Exam Narrative GENERAL: Awake, alert, nontoxic-appearing 42-year-old male who appears his stated age and is in no acute respiratory distress. SKIN: Focused skin assessment warm/dry. HEAD: Atraumatic. Normocephalic. EYES: Pupils equal and round. Pupils are 3 mm bilateral and reactive. EOMs are intact. Patient is able to see fingers at a distance of 2 feet out of the right eye, however, the left eye diminished vision. ENT: No nasal bleeding or discharge. Mucous membranes pink and moist. NECK: Trachea midline. No JVD. CARDIOVASCULAR: Regular rate and rhythm. No murmur appreciated. RESPIRATORY: No accessory muscle use. Clear to auscultation. Breath sounds equal bilaterally. GASTROINTESTINAL: Abdomen soft, non-tender, nondistended. Hepatic and splenic margins not palpable. MUSCULOSKELETAL: No obvious deformities. No clubbing. No cyanosis. No edema. NEUROLOGICAL: Awake and alert. Pupils equal round reactive to light. EOMs are intact. Diminished vision left eye the fingers at a distance of 2 feet. Smile is symmetric. Tongue is midline. No obvious droop of the left upper eyelid noted. Drift is noted a left arm and the left leg, however, the extremities do not fall to the bed. Diminished sensation to the left face, left arm, and left leg. No dysarthria noted. Finger to nose is normal. Agcf-cb-mdid is normal. PSYCHIATRIC: Appropriate mood and affect; insight and judgment normal. Data Data Last Documented VS Vital Signs Date Time Temp Pulse Resp B/P (MAP) Pulse Ox O2 Delivery O2 Flow Rate FiO2 06/28/17 17:32 18 100 Room Air 06/28/17 17:27 74 06/28/17 16:49 97.6 Orders Orders Diet Npo (06/28/17 Dinner) Activity Bed Rest (06/28/17 ) Electrocardiogram (06/28/17 ) I-Stat Creatinine (06/28/17 16:40) I-Stat Profile (06/28/17 16:40) Prothrombin Time / Inr (Pt) (06/28/17 16:40) Act Partial Throm Time (Ptt) (06/28/17 16:40) Complete Blood Count With Diff (06/28/17 16:40) Fibrinogen (06/28/17 16:40) Creatine Kinase (Cpk) (06/28/17 16:40) Troponin I (06/28/17 16:40) Ua Includes Microscopic (06/28/17 16:40) Drug Screen, Random Urine (06/28/17 16:40) Type And Screen (06/28/17 16:40) Ct Brain W/O Iv Contrast(Rout) (06/28/17 ) Cta Brain W Iv Contrast W 3d (06/28/17 16:40) Cta Neck W Iv Contrast W 3d (06/28/17 16:40) Consult Neurology (06/28/17 ) Blood Glucose (06/28/17 16:40) Ecg Monitoring (06/28/17 16:40) Neuro Checks Q2HX12,Q4H (06/28/17 16:40) Nursing Bedside Swallow Assess .ONCE (06/28/17 16:40) Iv Access Insert/Monitor (06/28/17 16:40) NPO (06/28/17 16:40) Oximetry (06/28/17 16:40) Oxygen Administration (06/28/17 16:40) Sodium Chlor 0.9% 1000 Ml Inj (Ns 1000 M (06/28/17 16:40) Resp Oxygen Sherif C Titrat 1-4 L (06/28/17 16:40) Cath For Specimen (06/28/17 16:40) (Hub Use Only)Inp Phy Cons/Ref (06/28/17 ) Aspirin (Aspirin) (06/28/17 17:45) Sodium Chlor 0.9% 1000 Ml Inj (Ns 1000 M (06/28/17 17:48) Consult Pt Eval & Treat (06/28/17 17:48) Scd&Teds Bilateral/Knee High NICCI.QSHIFT (06/28/17 17:48) Activity Oob With Assistance (06/28/17 17:48) ^ Fall Precautions (06/28/17 17:48) ^ Other Nursing Orders (06/28/17 17:48) Iohexol 350 Inj (Omnipaque 350 Inj) (06/28/17 16:32) Admit Order (Ed Use Only) (06/28/17 ) Java Programmer / Telemetry NICCI.Q8H (06/28/17 18:37) Vital Signs (Adult) Q4H (06/28/17 18:37) Activity Bed Rest (06/28/17 18:37) Labs Laboratory Tests Test 06/28/17 16:45 06/28/17 17:45 White Blood Count 6.3 TH/MM3 Red Blood Count 5.02 MIL/MM3 Hemoglobin 13.6 GM/DL Bedside Hemoglobin 14.3 G/DL Hematocrit 41.4 % Bedside Hematocrit 42.0 % Mean Corpuscular Volume 82.5 FL Mean Corpuscular Hemoglobin 27.1 PG Mean Corpuscular Hemoglobin Concent 32.8 % Red Cell Distribution Width 14.3 % Platelet Count 246 TH/MM3 Mean Platelet Volume 7.0 FL Neutrophils (%) (Auto) 56.4 % Lymphocytes (%) (Auto) 33.1 % Monocytes (%) (Auto) 8.2 % Eosinophils (%) (Auto) 1.6 % Basophils (%) (Auto) 0.7 % Neutrophils # (Auto) 3.6 TH/MM3 Lymphocytes # (Auto) 2.1 TH/MM3 Monocytes # (Auto) 0.5 TH/MM3 Eosinophils # (Auto) 0.1 TH/MM3 Basophils # (Auto) 0.0 TH/MM3 CBC Comment DIFF FINAL Differential Comment Prothrombin Time 10.0 SEC Prothromb Time International Ratio 0.9 RATIO Activated Partial Thromboplast Time 26.5 SEC Fibrinogen 382 mg/dL Bedside Sodium 138 MMOL/L Bedside Potassium 3.9 MMOL/L Bedside Chloride 99 MMOL/L Bedside Blood Urea Nitrogen 13 MG/DL Bedside Creatinine 0.6 MG/DL Bedside Glucose 291 MG/DL Total Creatine Kinase 61 U/L Troponin I LESS THAN 0.02 NG/ML Urine Color LIGHT-YELLOW Urine Turbidity CLEAR Urine pH 5.5 Urine Specific [place] 1.044 Urine Protein NEG mg/dL Urine Glucose (UA) 1000 mg/dL Urine Ketones NEG mg/dL Urine Occult Blood NEG Urine Nitrite NEG Urine Bilirubin NEG Urine Urobilinogen LESS THAN 2.0 MG/DL Urine Leukocyte Esterase NEG Urine WBC LESS THAN 1 /hpf Urine Opiates Screen NEG Urine Barbiturates Screen NEG Urine Amphetamines Screen NEG Urine Benzodiazepines Screen POS Urine Cocaine Screen NEG Urine Cannabinoids Screen NEG MDM Medical Screen Exam Complete: Yes Emergency Medical Condition: Yes Medical Record Reviewed: Yes EKG Prior to Arrival: No Differential Diagnosis Differential diagnosis includes CVA, TIA, intracranial hemorrhage, complicated migraine, seizure, Gene's paralysis, malingering. Narrative Course IV was established, labs were drawn and sent, and the patient is placed on cardiac telemetry monitoring and continuous pulse oximetry monitoring. A stroke alert was called. The patient's initial NIHSS was 6, 24 inability to see fingers at a distance of 2 feet out of the left eye, 2 for decreased sensation to the left face, arm, leg, and a total of 24 drift of the left upper extremity and left lower extremity. The patient immediately went to CT, I discussed the patient with Dr. Jorgensen, who states the CT is negative. The patient is within the 6 hour window, presented at 4/2 hours, I discussed the patient with Dr. Puckett and we will perform a CTA to see if there can be any intervention. However, the patient is on Eliquis, started last Sunday for a history of pulmonary embolism. I discussed the patient with Dr. Carr who is in the emergency department at 5:10 PM to evaluate the patient and went to CT where the patient was currently residing. CT is unremarkable, no indication for acute intervention. The patient will be admitted for further evaluation of left-sided weakness. Stroke Alert NIHSS NIH Stroke Scale Result: 6 NIHSS Time Completed: 16:40 Thrombolytic Contraindications Contraindications Comment: Patient is on Eliquis Procedures Interpretation(s) EKG reveals normal sinus rhythm with a rate 81. Inverted T-wave in lead 3 noted. Laboratory Tests Test 06/28/17 16:45 White Blood Count 6.3 TH/MM3 Red Blood Count 5.02 MIL/MM3 Hemoglobin 13.6 GM/DL Bedside Hemoglobin 14.3 G/DL Hematocrit 41.4 % Bedside Hematocrit 42.0 % Mean Corpuscular Volume 82.5 FL Mean Corpuscular Hemoglobin 27.1 PG Mean Corpuscular Hemoglobin Concent 32.8 % Red Cell Distribution Width 14.3 % Platelet Count 246 TH/MM3 Mean Platelet Volume 7.0 FL Neutrophils (%) (Auto) 56.4 % Lymphocytes (%) (Auto) 33.1 % Monocytes (%) (Auto) 8.2 % Eosinophils (%) (Auto) 1.6 % Basophils (%) (Auto) 0.7 % Neutrophils # (Auto) 3.6 TH/MM3 Lymphocytes # (Auto) 2.1 TH/MM3 Monocytes # (Auto) 0.5 TH/MM3 Eosinophils # (Auto) 0.1 TH/MM3 Basophils # (Auto) 0.0 TH/MM3 CBC Comment DIFF FINAL Differential Comment Prothrombin Time 10.0 SEC Prothromb Time International Ratio 0.9 RATIO Activated Partial Thromboplast Time 26.5 SEC Fibrinogen 382 mg/dL Bedside Sodium 138 MMOL/L Bedside Potassium 3.9 MMOL/L Bedside Chloride 99 MMOL/L Bedside Blood Urea Nitrogen 13 MG/DL Bedside Creatinine 0.6 MG/DL Bedside Glucose 291 MG/DL Total Creatine Kinase 61 U/L Troponin I LESS THAN 0.02 NG/ML Last Impressions Neck CTA 06/28/17 1640 Signed Impressions: Service Date/Time: June 17:02 - CONCLUSION: 1. Patent carotid arteries and vertebral arteries. Esau Xiao Jr., MD Head CTA 06/28/17 1640 Signed Impressions: Service Date/Time: June 17:02 - CONCLUSION: Normal examination. Valdez Puckett MD Head CT 06/28/17 0000 Signed Impressions: Service Date/Time: June 16:42 - CONCLUSION: Stable brain appearance with no acute findings. Valdez Puckett MD Physician Communication Physician Communication The on-call medical service was paged for admission. Diagnosis Diagnosis: Primary Impression: CVA (cerebral vascular accident) Qualified Codes: I63.9 - Cerebral infarction, unspecified Admitting Physician Requests: Admit Condition: Stable Noam Salmeron MD Jun 28, 2017 16:55
--- NOTE | 2017-06-28 17:07 | RADRPT ---
EXAM DATE/TIME: 06/28/2017 16:42 [facility] COMPARISON: CT BRAIN W/O CONTRAST, June 12, 2017, 16:28. INDICATIONS : Left side weakness. RADIATION DOSE: 56.35 CTDIvol (mGy) This report was called by Lavern Salmeron at 1700 MEDICAL HISTORY : History of pulmonary embolism SURGICAL HISTORY : Orthoedicic ENCOUNTER: Initial ACUITY: 1 day PAIN SCALE: 0/10 LOCATION: cranial TECHNIQUE: Multiple contiguous axial images were obtained of the head. Using automated exposure control and adj ustment of the mA and/or kV according to patient size, radiation dose was kept as low as reasonably a chievable to obtain optimal diagnostic quality images. DICOM format image data is available electro nically for review and comparison. FINDINGS: Stable mild probable developmental asymmetry of the lateral ventricles. No evidence of intracranial m ass or hemorrhage. Nothing to specifically indicate acute infarction. Extracranial structures stable, benign and intact. CONCLUSION: Stable brain appearance with no acute findings. Valdez Puckett MD on June 28, 2017 at 16:59 Board Certified Radiologist. This report was verified electronically.
[2017-06-28 17:09] LABS: AUTOMATED NEUTROPHIL # 3.6 TH/MM3 (1.8-7.7); BASOPHIL % 0.7 % (0.0-2.0); EOSINOPHIL # 0.1 TH/MM3 (0-0.4); EOSINOPHIL % 1.6 % (0.0-4.0); HEMATOCRIT 41.4 % (39.0-51.0); HEMO FLAGS DIFF FINAL; LYMPH % 33.1 % (9.0-44.0); LYMPHOCYTE # 2.1 TH/MM3 (1.0-4.8); MEAN CELL VOLUME 82.5 FL (80.0-100.0); MEAN CORPUSCULAR HEMOGLOBIN 27.1 PG (27.0-34.0); MEAN CORPUSCULAR HGB CONC 32.8 % (32.0-36.0); MONO % 8.2 % (0.0-8.0); NEUT % 56.4 % (16.0-70.0); PLATELET COUNT 246 TH/MM3 (150-450); RED BLOOD COUNT 5.02 MIL/MM3 (4.50-5.90); RED CELL DISTRIBUTION WIDTH 14.3 % (11.6-17.2); WHITE BLOOD COUNT 6.3 TH/MM3 (4.0-11.0)
[2017-06-28 17:20] LABS: I-STAT POTASSIUM 3.9 MMOL/L (3.5-4.9); I-STAT SODIUM 138 MMOL/L (138-146)
[2017-06-28 17:21] LABS: APTT (PATIENT) 26.5 SEC (24.3-30.1); INTERNATIONAL NORMALIZED RATIO 0.9 RATIO
[2017-06-28 17:27] VITALS: BP 152/91; PULSE 74; RESP 20; O2SAT 100
[2017-06-28 17:32] VITALS: RESP 18; O2SAT 100
[2017-06-28] MEDS ORDERED: APIX5TAB PO (17:32)
--- NOTE | 2017-06-28 17:32 | RADRPT ---
EXAM DATE/TIME: 06/28/2017 17:02 [facility] COMPARISON: CTA BRAIN W 3D RECON, April 07, 2017, 22:35. INDICATIONS : Stroke alert left side waekness. IV CONTRAST: 75 cc Omnipaque 350 (iohexol) IV ; Cumulative dose for multiple exams. RADIATION DOSE: 17.92 CTDIvol (mGy) ; Combined studies MEDICAL HISTORY : Cardiovascular disease. Seizures. Diabetes mellitus type 1. SURGICAL HISTORY : Pacemaker. ENCOUNTER: Initial ACUITY: 1 day PAIN SCALE: 0/10 LOCATION: CTA Brain TECHNIQUE: Volumetric scanning was performed using a multi-row detector CT scanner. The data was post processed with a variety of visualization algorithms including full volume maximum intensity projection, multi -planar sliding thin slab reformation, curved planar reformation, and surface rendering techniques. Using automated exposure control and adjustment of the mA and/or kV according to patient size, radiat ion dose was kept as low as reasonably achievable to obtain optimal diagnostic quality images. DICO M format image data is available electronically for review and comparison. FINDINGS: There is excellent visualization of the major intracranial arteries out to the second-order branch ve ssels. There is no evidence for aneurysm, vessel truncation or stenosis, and no evidence for vascula r malformation. CONCLUSION: Normal examination. Valdez Puckett MD on June 28, 2017 at 17:27 Board Certified Radiologist. This report was verified electronically.
[2017-06-28 17:41] LABS: CREATINE KINASE 61 U/L (39-308)
[2017-06-28] MEDS ORDERED: ASPIRIN 325 MG TAB PO ONE (17:45)
[2017-06-28 18:06] LABS: BLOOD, URINE NEG (NEG); GLUCOSE,URINE 1000 mg/dL (NEG); KETONE, URINE NEG (NEG); NITRITE,URINE NEG (NEG); PH, URINE 5.5 (5.0-8.5); URINE COLOR LIGHT-YELLOW (YELLW/STRAW)
--- NOTE | 2017-06-28 18:27 | RADRPT ---
EXAM DATE/TIME: 06/28/2017 17:02 [facility] COMPARISON: CTA CAROTID ARTERIES W 3D RECON, April 07, 2017, 22:35. INDICATIONS : Stroke alert left side weakness. IV CONTRAST: 75 cc Omnipaque 350 (iohexol) IV ; Cumulative dose for multiple exams. RADIATION DOSE: 17.92 CTDIvol (mGy) ; Combined studies MEDICAL HISTORY : Cardiovascular disease. Diabetes mellitus type 1. Seizures. SURGICAL HISTORY : Pacemaker. ENCOUNTER: Initial ACUITY: 1 day PAIN SCALE: 0/10 LOCATION: CTA NECK Elevated flow velocities and ICA/CCA ratios have been found to correlate with increased degrees of vessel stenosis, calculated as percentage of diameter relative to a normal segment of distal ICA/CCA. TECHNIQUE: Volumetric scanning was performed using a multirow detector CT scanner. The data was post processed with a variety of visualization algorithms including full-volume maximum intensity projection, multip lanar sliding thin-slab reformation, curved-planar reformation, and surface-rendering techniques. Us ing automated exposure control and adjustment of the mA and/or kV according to patient size, radiatio n dose was kept as low as reasonably achievable to obtain optimal diagnostic quality images. DICOM f ormat image data is available electronically for review and comparison. FINDINGS: AORTIC ARCH: There is a two-vessel origin of the great vessels from the aorta. The brachiocephalic and common jamil tid arteries share a common origin. No evidence of ostial narrowing. RIGHT CAROTID: The common carotid artery is intact. The carotid bulb has a normal configuration without ulceration o r narrowing. The internal carotid artery lumen is smooth without stenosis. The external carotid marvel ry is intact. LEFT CAROTID: The common carotid artery is intact. The carotid bulb has a normal configuration without ulceration or narrowing. The internal carotid artery lumen is smooth without stenosis. The external carotid ar nahomi is intact. VERTEBRALS: The left vertebral artery is dominant. No stenotic lesions are seen. A pacing device is seen on the left. Cervical spinal fusion plate observed. CONCLUSION: 1. Patent carotid arteries and vertebral arteries. Esau Xiao Jr., MD on June 28, 2017 at 18:22 Board Certified Radiologist. This report was verified electronically.
[2017-06-28] MEDS: SODIUM CHLOR 0.9% 1000 ML INJ 1,000 ML IV SCH (18:44)
--- NOTE | 2017-06-28 19:09 | HHI.HP ---
[facility] Non-Staff Admission Diagnosis CVA versus TIA, left-sided weakness Diagnoses: (1) TIA (transient ischemic attack) Diagnosis: Principal (2) History of pulmonary embolism Diagnosis: Principal (3) Chronic pain Diagnosis: Principal (4) HTN (hypertension) Diagnosis: Principal (5) Seizure disorder Diagnosis: Principal (6) DM (diabetes mellitus) Diagnosis: Principal Travel History International Travel<30 Days: No Contact w/Intl Traveler <30 Da: No Traveled to Known Affected Are: No History of Present Illness This is a 42-year-old male with PMH of HTN, CAD s/p Pacemaker, h/o TIA, Chronic Pain, Drug Seeking Behavior (per records), h/o DVT, PE on Eliquis and DM who presented to the ER as a Stroke Alert secondary to acute onset of left-sided weakness of arm and leg in addition to left-sided facial numbness. States symptoms started at approx 11am this morning. Also notes decreased/double vision in left eye. Reports h/o TIA approx 1yr ago at [facility]. States was recently diagnosed w/ PE at Dr. Rodas [facility] in [place], started on Eliquis. Reports compliance w/ meds. H/o DVT in 2014 after Pacemaker implantation, s/p Coumadin for several months, off anticoagulation until now. CT Head w/ no acute findings. CTA Head/Neck normal. S/p eval by Dr. Carr in ER. 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 BP 152/91, HR 74, O2 sat 100% on RA, Afebrile. Chemistry essentially unremarkable except for BS 291. Troponin negative. INR 0.2. Urine Drug Screen positive for benzo. UA negative. CT Head stable. CTA Neck patent carotid arteries and vertebral arteries. CTA Head normal. Review of Systems Except as stated in HPI: all other systems reviewed are Neg ROS: 14 point review of systems otherwise negative. Past Family Social History Past Medical History PMH: HTN, CAD s/p Pacemaker, h/o TIA, Chronic Pain, Drug Seeking Behavior (per records), h/o DVT, PE on Eliquis and DM Past Surgical History PAST SURGICAL HISTORY: Pacemaker Allergies: Coded Allergies: nitroglycerin (Unverified Allergy, Unknown, 06/28/17) vancomycin (Unverified Allergy, Unknown, 06/28/17) MRI PRECAUTION (Verified Adverse Reaction, Severe, PACEMAKER THE IS NOT A MEDITONIC OR BIOTRONIK 04/09/17 KMD, 06/28/17) [facility] PACER Family History PAST FAMILY HISTORY: Reviewed, positive for DM, strong family history of CAD at young age Social History PAST SOCIAL HISTORY: Negative for alcohol, tobacco or drugs. Physical Exam Vital Signs Vital Signs Date Time Temp Pulse Resp B/P (MAP) Pulse Ox O2 Delivery O2 Flow Rate FiO2 06/28/17 17:32 18 100 Room Air 06/28/17 17:27 74 20 152/91 (111) 100 Room Air 06/28/17 16:57 80 18 98 Room Air 06/28/17 16:49 97.6 80 20 117/75 (89) 97 Physical Exam PE: GENERAL: Middle-aged white male in no acute distress. HEENT: PERRLA, EOMI. Decreased vision left eye, +diplopia. No scleral icterus or conjunctival pallor. No lid lag or facial droop. Left facial numbness CARDIOVASCULAR: Regular rate and rhythm. No obvious murmurs to auscultation. No chest tenderness to palpation. RESPIRATORY: No obvious rhonchi or wheezing. Clear to auscultation. Breath sounds equal bilaterally. GASTROINTESTINAL: Abdomen soft, non-tender, nondistended. BS normal. MUSCULOSKELETAL: Extremities without clubbing, cyanosis, or edema. No obvious deformities. NEUROLOGICAL: Awake, alert and oriented x4. No focal neurologic deficits. Moving both upper and lower extremities spontaneously. Left thigh numbness, left forearm numbness Laboratory Laboratory Tests Test 06/28/17 16:45 06/28/17 17:45 White Blood Count 6.3 Red Blood Count 5.02 Hemoglobin 13.6 Bedside Hemoglobin 14.3 Hematocrit 41.4 Bedside Hematocrit 42.0 Mean Corpuscular Volume 82.5 Mean Corpuscular Hemoglobin 27.1 Mean Corpuscular Hemoglobin Concent 32.8 Red Cell Distribution Width 14.3 Platelet Count 246 Mean Platelet Volume 7.0 Neutrophils (%) (Auto) 56.4 Lymphocytes (%) (Auto) 33.1 Monocytes (%) (Auto) 8.2 Eosinophils (%) (Auto) 1.6 Basophils (%) (Auto) 0.7 Neutrophils # (Auto) 3.6 Lymphocytes # (Auto) 2.1 Monocytes # (Auto) 0.5 Eosinophils # (Auto) 0.1 Basophils # (Auto) 0.0 CBC Comment DIFF FINAL Differential Comment Prothrombin Time 10.0 Prothromb Time International Ratio 0.9 Activated Partial Thromboplast Time 26.5 Fibrinogen 382 Bedside Sodium 138 Bedside Potassium 3.9 Bedside Chloride 99 Bedside Blood Urea Nitrogen 13 Bedside Creatinine 0.6 Bedside Glucose 291 Total Creatine Kinase 61 Troponin I LESS THAN 0.02 Urine Color LIGHT-YELLOW Urine Turbidity CLEAR Urine pH 5.5 Urine Specific [place] 1.044 Urine Protein NEG Urine Glucose (UA) 1000 Urine Ketones NEG Urine Occult Blood NEG Urine Nitrite NEG Urine Bilirubin NEG Urine Urobilinogen LESS THAN 2.0 Urine Leukocyte Esterase NEG Urine WBC LESS THAN 1 Urine Opiates Screen NEG Urine Barbiturates Screen NEG Urine Amphetamines Screen NEG Urine Benzodiazepines Screen POS Urine Cocaine Screen NEG Urine Cannabinoids Screen NEG Result Diagram: 06/28/17 4206 Caprini VTE Risk Assessment Caprini VTE Risk Assessment: Mod/High Risk (score >= 2) Caprini Risk Assessment Model Point Value = 1 Point Value = 2 Point Value = 3 Point Value = 5 Age 41-60 Minor surgery BMI > 25 kg/m2 Swollen legs Varicose veins or History of unexplained or recurrent spontaneous Oral contraceptives or hormone replacement Sepsis (< 1 month) Serious lung disease, including pneumonia (< 1 month) Abnormal pulmonary function Acute myocardial infarction Congestive heart failure (< 1 month) History of inflammatory bowel disease Medical patient at bed rest Age 61-74 Arthroscopic surgery Major open surgery (> 45 min) Laparoscopic surgery (> 45 min) Malignancy Confined to bed (> 72 hours) Immobilizing plaster cast Central venous access Age >= 75 History of VTE Family history of VTE Factor V Leiden Prothrombin [id number] Lupus anticoagulant Anticardiolipin antibodies Elevated serum homocysteine Heparin-induced thrombocytopenia Other congenital or acquired thrombophilia Stroke (< 1 month) Elective arthroplasty Hip, pelvis, or leg fracture Acute spinal cord injury (< 1 month) Prophylaxis Regimen Total Risk Factor Score Risk Level Prophylaxis Regimen 0-1 Low Early ambulation 2 Moderate Order ONE of the following: *Sequential Compression Device (SCD) *Heparin 5000 units SQ BID 3-4 Higher Order ONE of the following medications: *Heparin 5000 units SQ TID *Enoxaparin/Lovenox 40 mg SQ daily (WT < 150 kg, CrCl > 30 mL/min) *Enoxaparin/Lovenox 30 mg SQ daily (WT < 150 kg, CrCl > 10-29 mL/min) *Enoxaparin/Lovenox 30 mg SQ BID (WT < 150 kg, CrCl > 30 mL/min) AND/OR *Sequential Compression Device (SCD) 5 or more Highest Order ONE of the following medications: *Heparin 5000 units SQ TID (Preferred with Epidurals) *Enoxaparin/Lovenox 40 mg SQ daily (WT < 150 kg, CrCl > 30 mL/min) *Enoxaparin/Lovenox 30 mg SQ daily (WT < 150 kg, CrCl > 10-29 mL/min) *Enoxaparin/Lovenox 30 mg SQ BID (WT < 150 kg, CrCl > 30 mL/min) AND *Sequential Compression Device (SCD) Assessment and Plan Problem List: (1) TIA (transient ischemic attack) ICD Code: G45.9 - Transient cerebral ischemic attack, unspecified (2) History of pulmonary embolism ICD Code: Z86.711 - Personal history of pulmonary embolism (3) Chronic pain ICD Code: G89.29 - Other chronic pain (4) HTN (hypertension) ICD Code: I10 - Essential (primary) hypertension (5) Seizure disorder ICD Code: G40.909 - Epilepsy, unspecified, not intractable, without status epilepticus (6) DM (diabetes mellitus) ICD Code: E11.9 - Type 2 diabetes mellitus without complications Assessment and Plan A/P: 1. TIA: h/o TIA approx 1yr ago, reports strong family h/o TIA/CVA at young age , acute onset of left-sided facial and upper/lower extremity numbness, no significant weakness, also w/ left eye decreased vision/diplopia. CT Head negative for acute findings, CTA Head/Neck normal, images reviewed by me. H/o DVT/PE on Eliquis, ?underlying malignancy as reports possible "bone cancer", check Echo for possible thromboembolic event, switch to Xarelto per Dr. Carr. Statin, ASA. PT/OT as needed. 2. H/o DVT/PE: DVT 2014 following Pacemaker, on Coumadin for several months, off since then, now w/ PE diagnosed 1wk ago at Dr. Rodas [facility], currently on Eliquis, reports underlying bone cancer, pending pathology and treatment, likely underlying etiology for thrombosis. Continue w/ anticoagulation. 3. Chronic Pain: Reports chronic neck/back/shoulder pain, per review of previous records pt w/ drug-seeking behavior, will resume home Oxycodone. 4. Seizure Disorder: Stable. Resume home Keppra. 5. HTN: BP 150's, allow for permissive HTN in light of TIA. 6. DM: Sliding scale w/ Accu-Cheks. Resume home Insulin 7. DVT Prophylaxis: Anticoagulation as above 8. Social work for d/c planning as needed. 9. Case discussed w/ ER physician at length. Jeannie Sood MD Jun 28, 2017 19:09
[2017-06-28] MEDS ORDERED: SENNOSIDES 8.6 MG TAB PO PRN (19:15)
[2017-06-28] MEDS ORDERED: ONDANSETRON HCL 4 MG/2 ML VIAL IVP PRN (19:15)
[2017-06-28] MEDS ORDERED: SODIUM CHLORIDE 0.9% FLUSH 10 ML FLUSH IV FLUSH PRN (19:15)
[2017-06-28] MEDS ORDERED: MORPHINE SULFATE 4 MG/ML INJ IV PUSH PRN (19:15)
[2017-06-28] MEDS ORDERED: GLUCAGON 1 MG/ML VIAL OTHER PRN (19:15)
[2017-06-28] MEDS ORDERED: MAGNESIUM HYDROXIDE SUSP 30 ML CUP PO PRN (19:15)
[2017-06-28] MEDS ORDERED: LACTULOSE SYRUP 20 GM/30 ML CUP PO PRN (19:15)
[2017-06-28] MEDS ORDERED: ACETAMINOPHEN 325 MG TAB PO PRN (19:15)
[2017-06-28] MEDS ORDERED: BISACODYL 10 MG SUPP RECTAL PRN (19:15)
[2017-06-28] MEDS ORDERED: DEXTROSE 50% IN WATER 50 ML VIAL(D50) IV PUSH PRN (19:15)
[2017-06-28 20:16] VITALS: BP 140/91; PULSE 88; RESP 16; O2SAT 96
[2017-06-28] MEDS: SODIUM CHLORIDE 0.9% FLUSH 10 ML FLUSH IV FLUSH SCH (21:00)
[2017-06-28] MEDS ORDERED: APIXABAN 5 MG TABLET PO SCH (21:00)
[2017-06-28] MEDS: DOCUSATE SODIUM 50 MG/SENNA 8.6 MG TAB PO SCH (21:00)
[2017-06-28] MEDS: INSULIN ASPART SUPPLEMENTAL SCALE SQ SCH (21:00)
[2017-06-28 21:26] VITALS: BP 133/93; PULSE 71; RESP 18; TEMP 97.7; O2SAT 98
--- NOTE | 2017-06-28 22:23 | MB ---
cc: MARY JANE CLARK M.D. DATE OF CONSULTATION 06/28/17 HISTORY OF PRESENT ILLNESS A 42-year-old right-handed man with hypertension, insulin-dependent diabetes, hypercholesterolemia, [place], pacemaker, left shoulder, he questions whether he could have had a tumor, they are waiting for a biopsy the last 6 weeks at [facility], seizures grand mal last 6 years ago, other times he has woken up and bit his tongue. He is on Keppra. He has had a PE since 2014 after his pacemaker was placed and he has been on Eliquis 5 milligrams b.i.d. About 11:00 a.m. this morning he noticed that he had a little bit of droopiness in the left eye and some blurriness and numbness on the left arm and leg and some weakness on the left leg. REVIEW OF SYSTEMS He denies any history of a-fib, renal, hepatic, pulmonary disease, thyroid disease, lupus, ulcer. SOCIAL HISTORY Nonsmoker, nondrinker. No drugs. Lives with his father. Has a history of PTSD. FAMILY HISTORY Positive for cancer. Negative for seizure, stroke. PAST MEDICAL HISTORY As above and also PTSD with anxiety. No depression. I saw him on April 07, 2017, I noted he had pancreatitis in the past. He was not on any blood thinners then, was supposed to be on Coumadin. He had left-sided numbness, had bitten his lip. He had seizures since he was 9-years-old. Stress test was done, showed a normal ejection fraction, normal stress test in March of 2017. He was also in the hospital in March for diaphoresis, heart pounding, sharp pain in his chest around his pacemaker, history of syncopal episodes. He was on Xanax and Keppra 500 b.i.d., insulin and oxycodone in the past. Pinprick was absent or severely diminished in his left arm and leg and face compared to the right. The drug screen was positive for benzos. CT was negative. He had some vision changes at that time and he decreased visual acuity in the bilateral inferior lateral quadrant. Still some numbness on the left when I saw him. We put him on an aspirin. A CT scan of his C-spine there is no major abnormality. Could not do an MRI, has a [employer] pacemaker. His echo was normal. His EEG was normal. His CT of the neck was negative. Head CT was normal. He was just seen June 12, 2017 with multiple episodes of passing out. He was seen in the emergency room, blacking out, defibrillator did not go off. 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 At that time he was not on Eliquis.. The patient's E-FORCSE revealed the patient receiving multiple controlled substances by multiple provides. In January he got 268 oxycodone, 90 Adderall and 60 Xanax. In February he had 250 oxycodone, __ Adderall and 120 Xanax. In March he had received 90 oxycodone and 30 Xanax. He had left against medical advice earlier that day. As noted, a CTA of the neck, [place] and carotid ultrasounds were negative as was the CT of the brain. He came in today, since 11:00 a.m. blurry vision in the left eye, weakness, numbness in the left arm and leg. CURRENT MEDICATIONS He tells me he is on: 1. Eliquis 5 b.i.d. PHYSICAL EXAMINATION VITAL SIGNS: Afebrile, sinus rhythm, 80, 20, 117/75. NECK: There are no carotid bruits. HEART: Regular rhythm. I did not detect a murmur. NEURO: Pupils are equal. Visual arizmendi, he has decreased visual acuity left inferior lateral quadrant, otherwise, visual arizmendi were full. Extraocular intact without nystagmus. Pupils are equal. Face symmetric with decreased sensation over V2. Decreased sensation over the left V2 but normal V3 and V1. He had normal strength in upper and lower extremities bilaterally including the left upper extremity. DTRs are trace throughout. Toes downgoing bilaterally. Pinprick, he said he could not feel at all on the left leg. He could feel it in the left arm but not on the left V1. He is not ataxic on [id number]. He is very anxious, a little bit of a tremor intermittently LABORATORY DATA CBC is normal. Sed rate last time was normal. RPR was negative last time. DONALD was negative. Antiphospholipid IgM antibody was 15.5, normal less than 15. IgG antibody was normal. Urine drug screen positive for benzos in the past. UA in May 1000 glucose, otherwise negative. Hyper coag screen Factor V Leiden was negative, otherwise, his hyper coag screen was normal last time. Basic metabolic profile, sugar is 291. LFTs are normal. CPK, troponin negative. Total protein normal. He had an ___ the last time which was normal. His LDL cholesterol in March was normal. His folate was normal. TSH last time was elevated at 15. B12 was normal. Lipase, thiamine, B6, methylmalonic acid all normal. IMPRESSION I am not so sure that some of this could not be psychological. He just started the Eliquis a week ago. He said he was diagnosed with a PE by Dr. Rodas [facility] in [place]. We should try to get those records. I would be hesitant to give him any narcotics here with his history as noted above. Since he is already on Eliquis and a baby aspirin he tells me at home, there is not much we could do here if he have a true stroke except maybe switch him to Xarelto. Interestingly enough, he knew Xarelto and knew the doses although he has never been on it. So if the med team wants to they could switch him to Xarelto, that would be okay with me. MD GALA Lopez/ALEKSANDR /5:40 PM /9:52 PM
[2017-06-28] MEDS: ALPRAZolam 1 MG TAB PO PRN (22:24)
[2017-06-28] MEDS: ATORVASTATIN 20 MG TAB PO SCH (22:24)
[2017-06-28] MEDS: levETIRAcetam 500 MG TAB PO SCH (22:25)
[2017-06-28] MEDS: INSULIN DETEMIR 100 UNITS/ML VIAL SQ SCH (22:26)
[2017-06-29] VITALS (7 sets, daily range): BP systolic 111–129; BP diastolic 65–81; PULSE 66–87; RESP 16–18; TEMP 97.6–98; O2SAT 94–100
[2017-06-29] MEDS: SODIUM CHLOR 0.9% 1000 ML INJ 1,000 ML IV SCH ×2 (07:08→20:28)
[2017-06-29] MEDS: INSULIN ASPART SUPPLEMENTAL SCALE SQ SCH ×4 (08:00→20:41)
[2017-06-29 08:03] LABS: AUTOMATED NEUTROPHIL # 2.5 TH/MM3 (1.8-7.7); BASOPHIL % 0.8 % (0.0-2.0); EOSINOPHIL # 0.1 TH/MM3 (0-0.4); EOSINOPHIL % 1.8 % (0.0-4.0); HEMATOCRIT 36.4 % (39.0-51.0); HEMO FLAGS DIFF FINAL; LYMPH % 35.3 % (9.0-44.0); LYMPHOCYTE # 1.7 TH/MM3 (1.0-4.8); MEAN CELL VOLUME 81.3 FL (80.0-100.0); MEAN CORPUSCULAR HEMOGLOBIN 27.5 PG (27.0-34.0); MEAN CORPUSCULAR HGB CONC 33.8 % (32.0-36.0); MONO % 9.1 % (0.0-8.0); PLATELET COUNT 231 TH/MM3 (150-450); RED BLOOD COUNT 4.48 MIL/MM3 (4.50-5.90); RED CELL DISTRIBUTION WIDTH 14.3 % (11.6-17.2); WHITE BLOOD COUNT 4.7 TH/MM3 (4.0-11.0)
[2017-06-29 08:22] LABS: ALT (GPT) 46 U/L (12-78); ANION GAP 8 MEQ/L (5-15); AST (GOT) 19 U/L (15-37); BICARBONATE 26.3 MEQ/L (21.0-32.0); BLOOD UREA NITROGEN 11 MG/DL (7-18); CHLORIDE 102 MEQ/L (98-107); GLOMERULAR FILTRATION RATE 137 ML/MIN (>89); POTASSIUM 3.8 MEQ/L (3.5-5.1); SODIUM (NA) 136 MEQ/L (136-145)
[2017-06-29 08:23] LABS: ALKALINE PHOSPHATASE 90 U/L (45-117); TOTAL BILIRUBIN ADULT 0.3 MG/DL (0.2-1.0)
[2017-06-29] MEDS: DOCUSATE SODIUM 50 MG/SENNA 8.6 MG TAB PO SCH ×2 (09:00→20:41)
[2017-06-29] MEDS: levETIRAcetam 500 MG TAB PO SCH ×2 (09:04→20:39)
[2017-06-29] MEDS: RIVAROXABAN 20 MG TAB PO SCH (09:04)
[2017-06-29] MEDS: SODIUM CHLORIDE 0.9% FLUSH 10 ML FLUSH IV FLUSH SCH ×2 (09:05→20:42)
[2017-06-29] MEDS: ASPIRIN 81 MG CHEW TAB CHEW SCH (09:05)
[2017-06-29] MEDS: ALPRAZolam 1 MG TAB PO PRN (10:48)
--- NOTE | 2017-06-29 12:15 | HHI.PR ---
Subjective Remarks In bed appears in nad . Says she still has blurry vision on his left eye, with weakness omn his left side arm and leg, thinks arm is weaker than the leg. Says there is not much improvement since yesterday. Says he has no seizures, says takes meds for seizures for 5 years and is fairly controlled. No new motor deficit. Ambulating with PT. Patient is refusing diabetic diet and is asking for regular diet. Objective Vitals Vital Signs Date Time Temp Pulse Resp B/P (MAP) Pulse Ox O2 Delivery O2 Flow Rate FiO2 06/29/17 10:27 97.6 70 18 111/65 (80) 98 06/29/17 08:24 66 06/29/17 01:17 98.0 85 16 122/78 (93) 94 06/28/17 21:26 97.7 71 18 133/93 (106) 98 06/28/17 21:08 06/28/17 20:16 88 16 140/91 (107) 96 Room Air 06/28/17 17:32 18 100 Room Air 06/28/17 17:27 74 20 152/91 (111) 100 Room Air 06/28/17 16:57 80 18 98 Room Air 06/28/17 16:49 97.6 80 20 117/75 (89) 97 Result Diagram: 06/29/17 0740 06/29/17 0740 Imaging Last Impressions Neck CTA 06/28/17 1640 Signed Impressions: Service Date/Time: June 17:02 - CONCLUSION: 1. Patent carotid arteries and vertebral arteries. Esau Xiao Jr., MD Head CTA 06/28/17 1640 Signed Impressions: Service Date/Time: June 17:02 - CONCLUSION: Normal examination. Valdez Puckett MD Head CT 06/28/17 0000 Signed Impressions: Service Date/Time: June 16:42 - CONCLUSION: Stable brain appearance with no acute findings. Valdez Puckett MD Objective Remarks GENERAL: Middle-aged white male in no acute distress. HEENT: PERRLA, EOMI. Decreased vision left eye, +diplopia. No scleral icterus or conjunctival pallor. No lid lag or facial droop. Left facial numbness CARDIOVASCULAR: Regular rate and rhythm. No obvious murmurs to auscultation. No chest tenderness to palpation. RESPIRATORY: No obvious rhonchi or wheezing. Clear to auscultation. Breath sounds equal bilaterally. GASTROINTESTINAL: Abdomen soft, non-tender, nondistended. BS normal. MUSCULOSKELETAL: Extremities without clubbing, cyanosis, or edema. No obvious deformities. NEUROLOGICAL: Awake, alert and oriented x4. No focal neurologic deficits. Moving both upper and lower extremities spontaneously. Left thigh numbness, left forearm numbness A/P Problem List: (1) TIA (transient ischemic attack) ICD Code: G45.9 - Transient cerebral ischemic attack, unspecified (2) History of pulmonary embolism ICD Code: Z86.711 - Personal history of pulmonary embolism (3) Chronic pain ICD Code: G89.29 - Other chronic pain (4) HTN (hypertension) ICD Code: I10 - Essential (primary) hypertension (5) Seizure disorder ICD Code: G40.909 - Epilepsy, unspecified, not intractable, without status epilepticus (6) DM (diabetes mellitus) ICD Code: E11.9 - Type 2 diabetes mellitus without complications Assessment and Plan TIA: h/o TIA approx 1yr ago, reports strong family h/o TIA/CVA at young age, acute onset of left-sided facial and upper/lower extremity numbness, no significant weakness, also w/ left eye decreased vision/diplopia. CT Head negative for acute findings, CTA Head/Neck normal, images reviewed by me. H/o DVT/PE on Eliquis, ?underlying malignancy as reports possible "bone cancer", check ECHO for possible thromboembolic event, switch to Xarelto per Dr. Carr. Statin, ASA. PT/OT as needed. Consult PT/OT Will obtain records H/o DVT/PE: DVT 2014 following Pacemaker, on Coumadin for several months, off since then, now w/ PE diagnosed 1wk ago at Dr. Rodas [facility], currently on Eliquis, reports underlying bone cancer, pending pathology and treatment, likely underlying etiology for thrombosis. Continue w/ anticoagulation. Chronic Pain: Reports chronic neck/back/shoulder pain, per review of previous records pt w/ drug-seeking behavior, will resume home Oxycodone. Seizure Disorder: Stable. Resume home Keppra. HTN: BP 150's, allow for permissive HTN in light of TIA. DM2: Sliding scale w/ Accu-Cheks. Resume home Insulin. Refusing diabetic diet will give regular diet. DVT Prophylaxis: Anticoagulation as above Case management consulted for d/c planning as needed Discussed with the patient, nurse Discharge when improved and cleared by neurology Magalie Weller MD Jun 29, 2017 12:15
--- NOTE | 2017-06-29 14:43 | ECHRPT ---
Indication: CVA/TIA CONCLUSIONS Normal left ventricular size. Wall thickness is normal. The left ventricular systolic function is low normal with an estimated ejection fraction in the rang e of 50- 55%. There is a pacemaker wire present in the right atrial cavity. Mild mitral valve regurgitation. There is trace tricuspid valve regurgitation. The estimated pulmonary arterial pressure is 35.4 mmHg. BP: 152 / 91 HR: Rhythm: Sinus MEASUREMENTS (Male / Female) Normal Values Technical Quality:Fair 2D ECHO LV Diastolic Diameter PLAX 4.8 cm 4.2 - 5.9 / 3.9 - 5.3 cm LV Systolic Diameter PLAX 3.5 cm IVS Diastolic Thickness 1.0 cm 0.6 - 1.0 / 0.6 - 0.9 cm LVPW Diastolic Thickness 1.0 cm 0.6 - 1.0 / 0.6 - 0.9 cm LV Relative Wall Thickness 0.4 LVOT Diameter 2.4 cm Aortic Root Diameter 3.4 cm LA Systolic Diameter LX 3.5 cm 3.0 - 4.0 / 2.7 - 3.8 cm M-MODE AV Cusp Separation MM 1.6 cm DOPPLER AV Peak Velocity 117.0 cm/s AV Peak Gradient 5.5 mmHg AV Mean Gradient 3.0 mmHg AV Velocity Time Integral 20.9 cm LVOT Peak Velocity 70.7 cm/s LVOT Peak Gradient 2.0 mmHg LVOT Velocity Time Integral 11.6 cm AV Area Cont Eq vti 2.5 cm AV Area Cont Eq pk 2.7 cm Mitral E Point Velocity 87.4 cm/s Mitral A Point Velocity 71.6 cm/s Mitral E to A Ratio 1.2 LV E' Lateral Velocity 8.8 cm/s Mitral E to LV E' Lateral Ratio 10.0 LV E' Septal Velocity 5.9 cm/s Mitral E to LV E' Septal Ratio 14.9 TR Peak Velocity 252.0 cm/s TR Peak Gradient 25.4 mmHg Right Atrial Pressure 10.0 mmHg Pulmonary Artery Systolic Pressu 35.4 mmHg Right Ventricular Systolic Press 35.4 mmHg PV Peak Velocity 71.4 cm/s PV Peak Gradient 2.0 mmHg FINDINGS LEFT VENTRICLE Normal left ventricular size. Wall thickness is normal. The left ventricular systolic function is low normal with an estimated ejection fraction in the rang e of 50- 55%. RIGHT VENTRICLE Normal right ventricular size and systolic function. LEFT ATRIUM The left atrial size is normal. RIGHT ATRIUM There is a pacemaker wire present in the right atrial cavity. ATRIAL SEPTUM Normal atrial septal thickness without atrial level shunting by limited color doppler interrogation. AORTA The aortic root and proximal ascending aorta are normal in size on limited imaging. MITRAL VALVE Mild mitral valve regurgitation. AORTIC VALVE Trileaflet aortic valve. No aortic valve stenosis or regurgitation. TRICUSPID VALVE There is trace tricuspid valve regurgitation. The estimated pulmonary arterial pressure is 35.4 mmHg. PULMONARY VALVE No pulmonary valve regurgitation or stenosis. VESSELS The inferior vena cava is normal in size. PERICARDIUM No pericardial effusion. Silvio Calix MD (Electronically Signed) Final Date:29 June 2017 14:42
[2017-06-29] MEDS ORDERED: hydrOXYzine HCL 50 MG TAB PO PRN (14:45)
--- NOTE | 2017-06-29 15:16 | PD.PSY.CON ---
Provisional Diagnosis Admission Date Jun 29, 2017 at 11:47 [place] I. Unspecified anxiety, Rule out conversion disorder, rule out factitious disorder , rule out malingering [place] II. Unspecified personality disorder [place] III. Diabetes, seizures, chronic lumbar pain [place] IV. Multiple medical illnesses, multiple hospitalizations and ER visits in [facility] [place] V. 55 History of Present Illness Service Psychiatry Consult Requested By Dr. Weller Reason for Consult Rule out factitious, conversion, malingering Primary Care Physician Non-Staff HPI The patient is a 42-year-old man, , unemployed, supported by [employer] , domiciled with his father in [place], [place], with psychiatric history of her reported insomnia,Seeking Behavior and malingering (as per records), no previous psychiatric hospitalizations, no previous suicidal attempts, he is on Xanax 2 mg 3 times a day prescribed by PCP for insomnia, with extensive medical history of of HTN, CAD s/p Pacemaker, h/o TIA, Chronic Pain, Drug , h/o DVT, PE on Eliquis and DM who presented to the ER as a Stroke Alert secondary to acute onset of left-sided weakness of arm and leg in addition to left-sided facial numbness. States symptoms started at approx 11am yesterday. Also notes decreased/double vision in left eye. CT Head w/ no acute findings. CTA Head/ Neck normal. S/p eval by Dr. Carr in ER. 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 BP 152/91, HR 74, O2 sat 100 % on RA, Afebrile. Chemistry essentially unremarkable except for BS 291. Troponin negative. INR 0.2. Urine Drug Screen positive for benzo. UA negative. CT Head stable. CTA Neck patent carotid arteries and vertebral arteries. CTA Head normal. Neurology consult to rule out any acute neurological illness. Consulted to psychiatry to rule out conversion disorder/ factitious disorder/malingering. On psychiatric evaluation patient is found pleasantly watching TV and eating his lunch. Patient immediately became guarded , irritable and oppositional after I presented myself as a psychiatrist. He says that he does not need to see a psychiatrist and he is surprised that he came here for medical reasons "and they sent a psychiatrist to see me". Patient denies having any psychiatric history, he denies symptoms of depression , he denies anxiety, he denies amotivation, glasses, helplessness, he denies suicidal and homicidal ideation. She denies previous suicidal attempts. Patient says that he love himself and he will never would harm himself. He also denies any current/recent acute stressors in his life other than his medical problems. He denies history of abuse, he denies history of psychological/sexual/physical abuse in the past. He denies history of incarcerations, denies aggressive behavior, denies agitation, he describes himself as a pacifist. He says that he has been under and shoes because he is waiting for a pathology report the most part is cannot be positive for cancer. I confronted the patient about using Xanax in such a high-dose for insomnia and 3 times per day, and the patient states that his primary provider want him to take like that. I also confronted the patient about e-forced indicating that he is using Adderall and he picked up a prescription of 90 pills in January, but he denies ever using this medication. He denies the use of illegal drugs, he denies abuse of alcohol. Review of Systems Constitutional: DENIES: Diaphoretic episodes, Fatigue, Fever, Weight gain, Weight loss, Chills, Dizziness, Change in appetite, Night Sweats Endocrine: DENIES: Heat/cold intolerance, Polydipsia, Polyuria, Polyphagia Eyes: DENIES: Blurred vision, Diplopia, Eye inflammation, Eye pain, Vision loss , Photosensitivity, Double Vision Ears, nose, mouth, throat: DENIES: Tinnitus, Hearing loss, Vertigo, Nasal discharge, Oral lesions, Throat pain, Hoarseness, Ear Pain, Running Nose, Epistaxis, Sinus Pain, Toothache, Odynophagia Respiratory: DENIES: Apneas, Cough, Snoring, Wheezing, Hemoptysis, Sputum production, Shortness of breath Cardiovascular: DENIES: Chest pain, Palpitations, Syncope, Dyspnea on Exertion , PND, Lower Extremity Edema, Orthopnea, Claudication Gastrointestinal: DENIES: Abdominal pain, Black stools, Bloody stools, Constipation, Diarrhea, Nausea, Vomiting, Difficulty Swallowing, Anorexia Genitourinary: DENIES: Sexual dysfunction, Urinary frequency, Urinary incontinence, Urgency, Hematuria, Dysuria, Nocturia, Penile Discharge, Testicular Pain, Testicular Swelling Musculoskeletal: DENIES: Joint pain, Muscle aches, Stiffness, Joint Swelling, Back pain, Neck pain Integumentary: DENIES: Abnormal pigmentation, Nail changes, Pruritus, Rash Hematologic/lymphatic: DENIES: Bruising, Lymphadenopathy Immunologic/allergic: DENIES: Eczema, Urticaria Neurologic: DENIES: Abnormal gait, Headache, Localized weakness, Paresthesias, Seizures, Speech Problems, Tremor, Poor Balance Psychiatric: DENIES: Anxiety, Confusion, Mood changes, Depression, Hallucinations, Agitation, Suicidal Ideation, Homicidal Ideation, Delusions Past Family Social History Coded Allergies: nitroglycerin (Unverified Allergy, Unknown, 06/28/17) vancomycin (Unverified Allergy, Unknown, 06/28/17) MRI PRECAUTION (Verified Adverse Reaction, Severe, PACEMAKER THE IS NOT A MEDITONIC OR BIOTRONIK 04/09/17 KMD, 06/28/17) [facility] PACER Active Scripts Ondansetron Odt (Zofran Odt) 4 Mg Tab, 4 MG SL Q6HR Y for Nausea/Vomiting, #30 TAB 0 Refills Prov:Yusuf Capellan MD 06/12/17 Aspirin (Aspirin Low Dose) 81 Mg Chew, 81 MG CHEW DAILY for Blood Clot Prevention, #90 TAB 0 Refills Prov:Darvin Hand DO 04/09/17 Atorvastatin (Lipitor) 10 Mg Tab, 20 MG PO HS for Cholesterol Management, #30 TAB Prov:Darvin Hand DO 04/08/17 Reported Medications Apixaban (Eliquis) 5 Mg Tab, 5 MG PO BID for Blood Clot Prevention, #60 TAB 0 Refills 06/28/17 Oxycodone (Oxycodone) 30 Mg Tab, 30 MG PO Q4HR Y for PAIN, TAB 0 Refills 04/07/17 Insulin Detemir Inj (Levemir Inj) 1,000 unit/ 10 ML Vial, 40 UNITS SQ HS for Blood Sugar Management, VIAL 0 Refills Do not mix with any other Insulin. 03/19/17 Alprazolam (Xanax) 2 Mg Tab, 2 MG PO Q8H Y for ANXIETY, TAB 0 Refills 03/19/17 Insulin Lispro (Human) Inj (Humalog Inj) 1,000 Unit/10 Ml Vial, SQ ACHS for Blood Sugar Management, #1 VIAL 0 Refills Max dose at bedtime:( )units; sugars < 70,(0)units; sugars 150-199,(5)units; sugars 200-249,(10)units; sugars 250-299,(15)units; sugars 300-349,(20)units; sugars more than 349,(25)units. 03/19/17 Levetiracetam (Keppra) 500 Mg Tab, 500 MG PO BID for Control Seizures, #60 TAB 0 Refills 03/19/17 Discontinued Scripts Oxycodone-Acetaminophen (Percocet) 10-325 mg Tab, 1 TAB PO Q6H Y for PAIN, #15 TAB 0 Refills Prov:Yusuf Capellan MD 06/12/[address] (Aspirin EC) 81 Mg Tabdr, 81 MG PO DAILY for Prevent Blood Clot, #30 TAB 0 Refills Prov:Leon Courtney MD 04/10/17 Levothyroxine (Synthroid) 50 Mcg Tab, 50 MCG PO DAILY@0600 for Thyroid, #30 TAB Prov:Darvin Hand DO 04/08/17 Current Medications Medications (Trade) Dose Ordered Sig/Fawad Route Start Time Stop Time Status Last Admin Sodium Chloride 1,000 ml @ 75 mls/hr [id number] IV 06/28/17 17:48 06/28/17 18:44 (D50w (Vial) Inj) 50 ml UNSCH PRN IV PUSH 06/28/17 19:15 (Glucagon Inj) 1 mg UNSCH PRN OTHER 06/28/17 19:15 (NovoLOG SUPPLEMENTAL SCALE) 1 ACHS SLIDING SCALE SQ 06/28/17 21:00 06/29/17 12:20 (NS Flush) 2 ml UNSCH PRN IV FLUSH 06/28/17 19:15 (NS Flush) 2 ml BID IV FLUSH 06/28/17 21:00 06/29/17 09:05 (Zofran Inj) 4 mg Q6H PRN IVP 06/28/17 19:15 (Tylenol) 650 mg Q6H PRN PO 06/28/17 19:15 (Morphine Inj) 2 mg Q3H PRN IV PUSH 06/28/17 19:15 06/28/17 19:52 (Bridgett-Colace) 1 tab BID PO 06/28/17 21:00 (Milk Of Magnesia Liq) 30 ml Q12H PRN PO 06/28/17 19:15 (Senokot) 17.2 mg Q12H PRN PO 06/28/17 19:15 (Dulcolax Supp) 10 mg DAILY PRN RECTAL 06/28/17 19:15 (Lactulose Liq) 30 ml DAILY PRN PO 06/28/17 19:15 (Aspirin Chew) 81 mg DAILY CHEW 06/29/17 09:00 06/29/17 09:05 (Lipitor) 20 mg HS PO 06/28/17 21:00 06/28/17 22:24 (Levemir Inj) 40 units HS SQ 06/28/17 21:00 06/28/17 22:26 (Keppra) 500 mg BID PO 06/28/17 21:00 06/29/17 09:04 (Roxicodone) 30 mg Q4HR PRN PO 06/28/17 19:15 06/29/17 12:56 (Xarelto) 20 mg DAILY PO 06/29/17 09:00 06/29/17 09:04 (Desyrel) 50 mg HS PO 06/29/17 21:00 (Atarax) 50 mg Q8H PRN PO 06/29/17 14:45 Family Psych History He denies family psychiatric history Social History Patient was born and raised in [place], he lives [facility]. , unemployed, supported by [employer], he says that his highest level of education is a master degree. Physical Exam No tremors, no EPS, no weakness, no psychomotor agitation or retardation Vital Signs Vital Signs Date Time Temp Pulse Resp B/P (MAP) Pulse Ox O2 Delivery O2 Flow Rate FiO2 06/29/17 14:21 98.0 77 17 116/80 (92) 100 06/28/17 20:16 Room Air Lab Results Test 06/28/17 16:45 06/28/17 17:45 06/29/17 07:40 White Blood Count 6.3 TH/MM3 4.7 TH/MM3 Red Blood Count 5.02 MIL/MM3 4.48 MIL/MM3 Hemoglobin 13.6 GM/DL 12.3 GM/DL Bedside Hemoglobin 14.3 G/DL Hematocrit 41.4 % 36.4 % Bedside Hematocrit 42.0 % Mean Corpuscular Volume 82.5 FL 81.3 FL Mean Corpuscular Hemoglobin 27.1 PG 27.5 PG Mean Corpuscular Hemoglobin Concent 32.8 % 33.8 % Red Cell Distribution Width 14.3 % 14.3 % Platelet Count 246 TH/MM3 231 TH/MM3 Mean Platelet Volume 7.0 FL 6.8 FL Neutrophils (%) (Auto) 56.4 % 53.0 % Lymphocytes (%) (Auto) 33.1 % 35.3 % Monocytes (%) (Auto) 8.2 % 9.1 % Eosinophils (%) (Auto) 1.6 % 1.8 % Basophils (%) (Auto) 0.7 % 0.8 % Neutrophils # (Auto) 3.6 TH/MM3 2.5 TH/MM3 Lymphocytes # (Auto) 2.1 TH/MM3 1.7 TH/MM3 Monocytes # (Auto) 0.5 TH/MM3 0.4 TH/MM3 Eosinophils # (Auto) 0.1 TH/MM3 0.1 TH/MM3 Basophils # (Auto) 0.0 TH/MM3 0.0 TH/MM3 CBC Comment DIFF FINAL DIFF FINAL Differential Comment Prothrombin Time 10.0 SEC Prothromb Time International Ratio 0.9 RATIO Activated Partial Thromboplast Time 26.5 SEC Fibrinogen 382 mg/dL Bedside Sodium 138 MMOL/L Bedside Potassium 3.9 MMOL/L Bedside Chloride 99 MMOL/L Bedside Blood Urea Nitrogen 13 MG/DL Bedside Creatinine 0.6 MG/DL Bedside Glucose 291 MG/DL Total Creatine Kinase 61 U/L Troponin I LESS THAN 0.02 NG/ML Urine Color LIGHT-YELLOW Urine Turbidity CLEAR Urine pH 5.5 Urine Specific [place] 1.044 Urine Protein NEG mg/dL Urine Glucose (UA) 1000 mg/dL Urine Ketones NEG mg/dL Urine Occult Blood NEG Urine Nitrite NEG Urine Bilirubin NEG Urine Urobilinogen LESS THAN 2.0 MG/DL Urine Leukocyte Esterase NEG Urine WBC LESS THAN 1 /hpf Urine Opiates Screen NEG Urine Barbiturates Screen NEG Urine Amphetamines Screen NEG Urine Benzodiazepines Screen POS Urine Cocaine Screen NEG Urine Cannabinoids Screen NEG Blood Urea Nitrogen 11 MG/DL Creatinine 0.64 MG/DL Random Glucose 171 MG/DL Total Protein 6.9 GM/DL Albumin 3.3 GM/DL Calcium Level 8.4 MG/DL Alkaline Phosphatase 90 U/L Aspartate Amino Transf (AST/SGOT) 19 U/L Alanine Aminotransferase (ALT/SGPT) 46 U/L Total Bilirubin 0.3 MG/DL Sodium Level 136 MEQ/L Potassium Level 3.8 MEQ/L Chloride Level 102 MEQ/L Carbon Dioxide Level 26.3 MEQ/L Anion Gap 8 MEQ/L Estimat Glomerular Filtration Rate 137 ML/MIN Mental Status Examination Appearance: Appropriate Consciousness: Alert Orientation: x4 Motor Activity: Normal gait Speech: Unremarkable Language: Adequate Fund of Knowledge: Adequate Attention and Concentration: Adequate Memory: Unremarkable Mood: Oppositional Affect: Appropriate Thought Process & Associations: Intact Thought Content: Appropriate Hallucination Type: None Delusion Type: None Suicidal Ideation: No Suicidal Plan: No Suicidal Intention: No Homicidal Ideation: No Homicidal Plan: No Homicidal Intention: No Insight: Adequate Judgment: Adequate Assessment & Plan Problem List: (1) Adjustment disorder with anxiety ICD Codes: F43.22 - Adjustment disorder with anxiety Assessment & Plan: On psychiatric evaluation today the patient presents oppositional, irritable throughout the interview stating that he does not need any psychiatric help at this moment. He denies any significant psychiatric history, denies hospitalizations, denies suicidal attempts, he denies depressive symptoms, denies psychosis and fernanda. Reports a little bit of anxiety due to current medical situation. He reports having history of insomnia and for this reason been prescribed with Xanax 2 mg 3 times a day. The patient's E-FORCSE revealed the patient receiving multiple controlled substances by multiple provides. In January he got 268 oxycodone, 90 Adderall and60 Xanax. In February he had 250 oxycodone, Adderall and 120 Xanax. In March he had received 90 oxycodone and 30 Xanax. Patient denies that he got Adderall. Since there is not indication for Xanax for insomnia I would discontinue the Xanax and will prescribe trazodone 50 mg at bedtime and hydroxyzine 50 mg every 8 hours when necessary anxiety. During this evaluation I could not find any solid evidence or elements of the psychiatric history suggestive of conversion disorder or factitious disorder. 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 Patient does not meet criteria for psychiatric admission at this moment. Psychoeducation provided. I will suggest to avoid benzodiazepines and narcotics as much as possible in this patient. Consul appreciated. Assessment & Plan Estimated LOS: Luis Garvey MD Jun 29, 2017 15:15
--- NOTE | 2017-06-29 18:17 | EKG ---
Date Performed: 06/28/2017 Time Performed: 17:35:41 PTAGE: 42 years EKG: Sinus rhythm NORMAL ECG PREVIOUS TRACING : 06/12/2017 14.53 DOCTOR: Cash Stevenson Interpretating Date/Time 06/29/2017 18:13:53
--- NOTE | 2017-06-29 19:16 | HHI.PR ---
Subjective Remarks sr Objective Vital Signs Date Time Temp Pulse Resp B/P (MAP) Pulse Ox O2 Delivery O2 Flow Rate FiO2 06/29/17 18:14 98.0 87 18 129/81 (97) 100 06/29/17 14:21 98.0 77 17 116/80 (92) 100 06/29/17 10:27 97.6 70 18 111/65 (80) 98 06/29/17 08:24 66 06/29/17 01:17 98.0 85 16 122/78 (93) 94 06/28/17 21:26 97.7 71 18 133/93 (106) 98 06/28/17 21:08 06/28/17 20:16 88 16 140/91 (107) 96 Room Air I/O 06/28/17 06/28/17 06/28/17 06/29/17 06/29/17 06/29/17 07:00 15:00 23:00 07:00 15:00 23:00 Intake Total 720 ml Balance 720 ml Intake Oral 720 ml # Voids 4 Result Diagram: 06/29/1740 06/29/17 0740 Objective Remarks nl gait little limp uses lue to shut off tv and 5/5 there Assessment and Plan Assessment and Plan imp no tumor noted on left shoulder surgery cta not here from dr burch [facility] will obtain MED TEAM PLEASE FU neuro bullard on xarelto doing fine ok dc by me psych thought secondary gain and rec no narcotics I AGREE see their note i would not recommend giving him a narcotics script at dc Neel Carr MD Jun 29, 2017 19:16
[2017-06-29] MEDS: ATORVASTATIN 20 MG TAB PO SCH (20:40)
[2017-06-29] MEDS: INSULIN DETEMIR 100 UNITS/ML VIAL SQ SCH (20:41)
[2017-06-29] MEDS ORDERED: traZODone HCL 50 MG TAB PO SCH (21:00)
[2017-06-30 00:45] VITALS: BP 101/61; PULSE 82; RESP 18; TEMP 97.7; O2SAT 94
[2017-06-30 05:02] VITALS: BP 87/52; PULSE 75; RESP 18; TEMP 98.4; O2SAT 95
[2017-06-30 05:47] VITALS: BP 108/72; PULSE 78
[2017-06-30] MEDS: INSULIN ASPART SUPPLEMENTAL SCALE SQ SCH (08:00)
[2017-06-30 08:10] VITALS: PULSE 70; PULSE 75
[2017-06-30 08:16] VITALS: BP 110/65; PULSE 77; RESP 18; TEMP 97.8; O2SAT 94
[2017-06-30] MEDS: DOCUSATE SODIUM 50 MG/SENNA 8.6 MG TAB PO SCH (08:16)
[2017-06-30] MEDS: SODIUM CHLOR 0.9% 1000 ML INJ 1,000 ML IV SCH (08:16)
[2017-06-30] MEDS: SODIUM CHLORIDE 0.9% FLUSH 10 ML FLUSH IV FLUSH SCH (08:32)
[2017-06-30] MEDS: ASPIRIN 81 MG CHEW TAB CHEW SCH (08:32)
[2017-06-30] MEDS: levETIRAcetam 500 MG TAB PO SCH (08:32)
[2017-06-30] MEDS: RIVAROXABAN 20 MG TAB PO SCH (08:32)
[2017-06-30] MEDS ORDERED: LEVE500 PO (09:33)
--- NOTE | 2017-06-30 09:34 | HHI.DS ---
Discharge Summary Admission Date Jun 29, 2017 at 11:47 Discharge Date: Jun 30, 2017 Admitting Diagnosis CVA versus TIA, left-sided weakness (1) TIA (transient ischemic attack) ICD Code: G45.9 - Transient cerebral ischemic attack, unspecified (2) History of pulmonary embolism ICD Code: Z86.711 - Personal history of pulmonary embolism (3) Chronic pain ICD Code: G89.29 - Other chronic pain (4) HTN (hypertension) ICD Code: I10 - Essential (primary) hypertension (5) Seizure disorder ICD Code: G40.909 - Epilepsy, unspecified, not intractable, without status epilepticus (6) DM (diabetes mellitus) ICD Code: E11.9 - Type 2 diabetes mellitus without complications (7) Adjustment disorder with anxiety ICD Code: F43.22 - Adjustment disorder with anxiety (8) Drug-seeking behavior ICD Code: Z76.5 - Malingerer [conscious simulation] Procedures none Brief History - From Admission This is a 42-year-old male with PMH of HTN, CAD s/p Pacemaker, h/o TIA, Chronic Pain, Drug Seeking Behavior (per records), h/o DVT, PE on Eliquis and DM who presented to the ER as a Stroke Alert secondary to acute onset of left-sided weakness of arm and leg in addition to left-sided facial numbness. States symptoms started at approx 11am this morning. Also notes decreased/double vision in left eye. Reports h/o TIA approx 1yr ago at [facility]. States was recently diagnosed w/ PE at Dr. Rodas [facility] in [place], started on Eliquis. Reports compliance w/ meds. H/o DVT in 2014 after Pacemaker implantation, s/p Coumadin for several months, off anticoagulation until now. CT Head w/ no acute findings. CTA Head/Neck normal. S/p eval by Dr. Carr in ER. 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 BP 152/91, HR 74, O2 sat 100% on RA, Afebrile. Chemistry essentially unremarkable except for BS 291. Troponin negative. INR 0.2. Urine Drug Screen positive for benzo. UA negative. CT Head stable. CTA Neck patent carotid arteries and vertebral arteries. CTA Head normal. CBC/BMP: 06/29/17 0740 06/29/17 0740 Significant Findings Laboratory Tests Test 06/28/17 16:45 06/28/17 17:45 06/29/17 07:40 Monocytes (%) (Auto) 8.2 % (0.0-8.0) 9.1 % (0.0-8.0) Fibrinogen 382 mg/dL (227-377) Bedside Creatinine 0.6 MG/DL (0.8-1.3) Bedside Glucose 291 MG/DL (60-95) Troponin I LESS THAN 0.02 NG/ML Urine Specific [place] 1.044 (1.002-1.035) Urine Glucose (UA) 1000 mg/dL (NEG) Urine Benzodiazepines Screen POS (NEG) Red Blood Count 4.48 MIL/MM3 (4.50-5.90) Hemoglobin 12.3 GM/DL (13.0-17.0) Hematocrit 36.4 % (39.0-51.0) Mean Platelet Volume 6.8 FL (7.0-11.0) Random Glucose 171 MG/DL (74-106) Albumin 3.3 GM/DL (3.4-5.0) Calcium Level 8.4 MG/DL (8.5-10.1) Imaging Last Impressions Neck CTA 06/28/17 1640 Signed Impressions: Service Date/Time: June 17:02 - CONCLUSION: 1. Patent carotid arteries and vertebral arteries. Esau Xiao Jr., MD Head CTA 06/28/17 1640 Signed Impressions: Service Date/Time: June 17:02 - CONCLUSION: Normal examination. Valdez Puckett MD Head CT 06/28/17 0000 Signed Impressions: Service Date/Time: June 16:42 - CONCLUSION: Stable brain appearance with no acute findings. Valdez Puckett MD PE at Discharge GENERAL: Middle-aged white male in no acute distress. HEENT: PERRLA, EOMI. Decreased vision left eye, +diplopia. No scleral icterus or conjunctival pallor. No lid lag or facial droop. Left facial numbness CARDIOVASCULAR: Regular rate and rhythm. No obvious murmurs to auscultation. No chest tenderness to palpation. RESPIRATORY: No obvious rhonchi or wheezing. Clear to auscultation. Breath sounds equal bilaterally. GASTROINTESTINAL: Abdomen soft, non-tender, nondistended. BS normal. MUSCULOSKELETAL: Extremities without clubbing, cyanosis, or edema. No obvious deformities. NEUROLOGICAL: Awake, alert and oriented x4. No focal neurologic deficits. Moving both upper and lower extremities spontaneously. Left thigh numbness, left forearm numbness Pt update on day of discharge At the margin of the bed, appears in nad. Normal speech no new motor or sensory deficit. Patient says she wants to go home. Says shas appointment with his doctors. Says he needs keppra refill meds and also he needs pain meds, and benzos at DC I discussed with Dr Reno edmond patient with drug seeking behavior had recent prescriptions for pain meds and benzos. No narcotic or benzos at discharge. Patient was discharged home in stable condition to follow up as OP with PCP and consultants. Hospital Course TIA: h/o TIA approx 1yr ago, reports strong family h/o TIA/CVA at young age, acute onset of left-sided facial and upper/lower extremity numbness, no significant weakness, also w/ left eye decreased vision/diplopia. CT Head negative for acute findings, CTA Head/Neck normal, images reviewed by me. H/o DVT/PE on Eliquis, ?underlying malignancy as reports possible "bone cancer", check ECHO for possible thromboembolic event, switch to Xarelto per Dr. Carr. Statin, ASA. PT/OT as needed. Consult PT/OT Will obtain records Per Dr Carr neuro, symptoms poss psychological. Consult psychiatry. Seen by Dr Jeb edmond. Patient with drug seeking behavior, malingering. Patient is discharged home in stable condition to fopllow up as OP with pCP and consultants. The patient is asking for narcotic pain meds and benzos at discharge. Patient had recent pain meds refilled. At discharge did not prescribe pain meds or benzos. H/o DVT/PE: DVT 2014 following Pacemaker, on Coumadin for several months, off since then, now w/ PE diagnosed 1wk ago at Dr. [facility], currently on Eliquis, reports underlying bone cancer, pending pathology and treatment, likely underlying etiology for thrombosis. Continue w/ anticoagulation. Patient to continue Eliquis as OP and follow up with his doctors. Chronic Pain: Reports chronic neck/back/shoulder pain, per review of previous records pt w/ drug-seeking behavior, will resume home Oxycodone. Seizure Disorder: Stable. Resume home Keppra. HTN: BP 150's, allow for permissive HTN in light of TIA. DM2: Sliding scale w/ Accu-Cheks. Resume home Insulin. Refusing diabetic diet will give regular diet. DVT Prophylaxis: Anticoagulation as above Case management consulted for d/c planning as needed Discussed with the patient, nurse Pt Condition on Discharge: Stable Discharge Disposition: Discharge Home Discharge Time: > 30 minutes Discharge Instructions DIET: Follow Instructions for: Heart Healthy Diet, Diabetic Diet Activities you can perform: Regular-No Restrictions Follow up Referrals: Neurology - 1 Week PCP Follow-up - 2-3 Days Continued Medications: Alprazolam (Xanax) 2 Mg Tab 2 MG PO Q8H PRN for ANXIETY, TAB 0 Refills Apixaban (Eliquis) 5 Mg Tab 5 MG PO BID for Blood Clot Prevention, #60 TAB 0 Refills Aspirin (Aspirin Low Dose) 81 Mg Chew 81 MG CHEW DAILY for Blood Clot Prevention, #90 TAB 0 Refills Atorvastatin (Lipitor) 10 Mg Tab 20 MG PO HS for Cholesterol Management, #30 TAB Insulin Detemir Inj (Levemir Inj) 1,000 unit/ 10 ML Vial 40 UNITS SQ HS for Blood Sugar Management, VIAL 0 Refills Do not mix with any other Insulin. Insulin Lispro (Human) Inj (Humalog Inj) 1,000 Unit/10 Ml Vial SQ ACHS for Blood Sugar Management, #1 VIAL 0 Refills Max dose at bedtime:( )units; sugars < 70,(0)units; sugars 150-199,(5)units; sugars 200-249,(10)units; sugars 250-299,(15)units; sugars 300-349,(20)units; sugars more than 349,(25)units. Levetiracetam (Keppra) 500 Mg Tab 500 MG PO BID for Control Seizures, #60 TAB 0 Refills (This prescription has been renewed) Ondansetron Odt (Zofran Odt) 4 Mg Tab 4 MG SL Q6HR PRN for Nausea/Vomiting, #30 TAB 0 Refills Oxycodone (Oxycodone) 30 Mg Tab 30 MG PO Q4HR PRN for PAIN, TAB 0 Refills Magalie Weller MD Jun 30, 2017 09:34
== END 2017-06-30 10:33 | disposition home or self-care (01) | DRG 69 ==
LOC: NEPC 16:31 → NEDA 18:40 → N05A 21:14 → OBSVTOIN 06-29 11:47
PROVIDERS: ADMIT Hospitalist; ATTEND Hospitalist
DX: G45.9 Transient cerebral ischemic attack, unspecified (principal); G81.94 Hemiplegia, unspecified affecting left nondominant side; I49.5 Sick sinus syndrome; I10 Essential (primary) hypertension; E11.9 Type 2 diabetes mellitus without complications; Z86.711 Personal history of pulmonary embolism; H53.8 Other visual disturbances; H53.2 Diplopia; G89.29 Other chronic pain; G40.909 Epilepsy, unspecified, not intractable, without status epilepticus; I25.10 Atherosclerotic heart disease of native coronary artery without angina pectoris; M25.519 Pain in unspecified shoulder; E78.00 Pure hypercholesterolemia, unspecified; Z95.0 Presence of cardiac pacemaker; F43.22 Adjustment disorder with anxiety; Z79.4 Long term (current) use of insulin; F43.10 Post-traumatic stress disorder, unspecified; Z86.73 Personal history of transient ischemic attack (TIA), and cerebral infarction without residual deficits; Z86.718 Personal history of other venous thrombosis and embolism; Z79.01 Long term (current) use of anticoagulants; Z82.49 Family history of ischemic heart disease and other diseases of the circulatory system; Z83.3 Family history of diabetes mellitus; I25.2 Old myocardial infarction
CPT/HCPCS: 70450; 70496; 70498; 80053; 80307; 81001; 82435; 82550; 82565; 82947; 82948; 84132; 84295; 84484; 84520; 85025; 85384; 85610; 85730; 86850; 86900; 86901; 93005; 93306; 96361; 96374; G0378; G8987-GP; G8988-GP; J1815; J2270; J7030; Q9967

== ENCOUNTER 2018-05-30 18:03 | Inpatient (IN) ==
[2018-05-30] MEDS ORDERED: Sod Chloride 0.9% Inj 1,000 ML IV.CONT SCH (19:45)
--- NOTE | 2018-05-30 19:48 | ED ---
HPI General Chief Complaint: Neuro Symptoms/Deficit Stated Complaint: numbness on left side Time Seen by Provider: 05/30/18 18:26 Source: patient Mode of arrival: ambulatory Limitations: no limitations History of Present Illness HPI Narrative: 43-year-old male presents to the emergency department by private transportation the care of his family for evaluation of new onset weakness of the left upper extremity and left lower extremity. According to the patient he was in his usual state of fair health with prior history of hypertension diabetes PE DVT TIA previous cervical fusion lumbar fusion and chronic pain syndrome when he went to bed last evening around 10:30 PM he felt well for him. Patient states at 5 AM he awakened to go the bathroom and when he got up out of bed he weakness to the left upper extremity and left lower extremity such that he was unable to hold up his own weight and fell to the ground. Patient states she landed on his left lower back area. Patient states he was able to get up off the floor by himself without assistance. Patient states he did not hit his head did not have loss of consciousness. Patient noted that when he was getting back to bed that he did have some soreness to the left lateral aspect of the tongue. Patient states that he may have had some type of mild seizure while he was asleep but did not have any obvious bleeding or visible bruising to the tongue and states that he did not have any incontinence of urine or feces when he had awakened at 5 AM. Patient was reportedly able to use the wall to get back to bed and went back to sleep reportedly until he awakened at 9 AM and noticed that his symptoms were persistent. Patient states that he has a family history of stroke in his brother age 38 and his father in his 40s and therefore in his brother awakened at 10 AM because of his persistent symptoms he decided to come to the emergency room but presents now for the first time for evaluation. Patient states that the right upper external he symptoms have improved and left lower extremity symptoms have improved slightly to where he is dragging left lower extremity. Patient states that he has had similar symptoms in the past. Patient states that he is supposed to be on Eliquis for history of PE and DVT but has not been taking his medication for 2 months as he does not have a primary care provider to re- prescribe his medication. Patient is still followed by pain management doctor for his chronic pain syndrome. Patient does not report headache does not report vision disturbance double vision loss of vision blurred vision does not report any slurring of speech but does state that he feels like he is having to talk around his tongue where his bruise from where he thinks he may have had mild seizure-like activity while he was sleeping sometime between 10:30 PM and 5 AM. Patient denies any chest pain palpitations shortness of breath sweats nausea vomiting near syncope or syncope. Patient states that he has also noticed decreased sensation to the left lower extremity. Onset (ago): hour(s) Time: 05:00 Last Observed Normal: 22:30 Timing confirmed by: other (patient) Location: Reports left face (left eyelid), left arm and left leg History of same: Yes (TIA dx 06/2017) Severity: moderate Quality: Reports weak (LUE/LLE), numb (LLE) and improving Relieving factors: none Exacerbating factors: none Context: Reports sudden onset (awakened 5 am with weakness and the fall) On Anticoagulants: No (prescribed Eliquis; but out of medication x 2 --->months no PCP) Associated symptoms: Reports seizures (possibly mild; h/o seizure, c/o tongue trauma; has taken keppra this am reports compliance); Denies confusion, chest pain, cough, diaphoresis, fever/chills, headaches, loss of appetite, malaise and nausea/vomiting Treatments Prior to Arrival: Reports none Related Data Home Medications Medication Instructions Recorded Confirmed alprazolam [Xanax] 2 mg PO 5XW PRN 05/30/18 05/30/18 apixaban [Eliquis] 5 mg PO BID 05/30/18 05/30/18 insulin aspart U-100 [Novolog 1 unit SUBCUT TID 05/30/18 05/30/18 U-100 Insulin aspart] insulin glargine [Lantus U-100 40 unit SUBCUT HS 05/30/18 05/30/18 Insulin] levetiracetam [Keppra] 500 mg PO BID 05/30/18 05/30/18 lisinopril 20 mg PO DAILY 05/30/18 05/30/18 oxycodone 30 mg PO Q4-6H PRN 05/30/18 05/30/18 pregabalin [Lyrica] 200 mg PO TID 05/30/18 05/30/18 Allergies Allergy/AdvReac Type Severity Reaction Status Date / Time nitroglycerin Allergy Severe Hives Verified 05/30/18 18:19 vancomycin Allergy Severe Hives Verified 05/30/18 18:19 acetaminophen [From Tylenol] AdvReac Nausea/Vomi Verified 05/30/18 21:36 ting Review of Systems ROS: all other systems reviewed are negative PMFSH History History Provided By: Medical Record (TIA 06/[address] brain, CTA brain, and CTA neck) Medical History Medical History Back pain (Acute) Cervical fusion syndrome (Acute) DVT (deep venous thrombosis) (Acute) Diabetes (Acute) Fusion of lumbar spine (Acute) Pacemaker (Acute) Seizure (Acute) Surgical History Surgical History Hx of shoulder surgery (Acute) Social History Social History Substance History: No History of Abuse Second Hand Smoke Exposure: No Smoking Status: Never smoker How Often Do You Have a Drink Containing Alcohol: Never Recent Travel in [facility] within the Last 8 Weeks: No Recent Out of Country Travel within the Last 8 Weeks: No Immunization History Tetanus Immunization: >5 Years Exam Narrative Exam Narrative: GENERAL: Well-developed well-nourished male in no acute distress no respiratory distress GCS 15 SKIN: Focused skin assessment warm/dry. HEAD: Atraumatic. Normocephalic. EYES: Pupils equal and round and reactive to light. No scleral icterus. No injection or drainage. Extraocular muscles intact. ENT: No nasal bleeding or discharge. Mucous membranes pink and moist. Mild soft tissue swelling to the left lateral aspect of the tongue without ecchymosis laceration or abrasion. Symmetric smile. NECK: Trachea midline. No JVD. CARDIOVASCULAR: Regular rate and rhythm. No murmur appreciated. RESPIRATORY: No accessory muscle use. Clear to auscultation. Breath sounds equal bilaterally. GASTROINTESTINAL: Abdomen soft, non-tender, nondistended. Hepatic and splenic margins not palpable. MUSCULOSKELETAL: No obvious deformities. No clubbing. No cyanosis. No edema. Reproducible lower lumbar spine tenderness to palpation just caudad to lumbar fusion scar no redness no ecchymosis no soft tissue swelling no bony abnormality to palpation. NEUROLOGICAL: Awake and alert. No obvious cranial nerve deficits. Motor grossly within normal limits except for weakness of the left lower extremity. Left upper extremity pronator drift. Decreased light touch and pinprick sensation to left lower extremity. Limb ataxia left lower extremity. Normal speech, except slight abnormality due to patient complaint of tongue soreness from possible injury from possible seizure. PSYCHIATRIC: Appropriate mood and affect; insight and judgment normal. SKIN: Focused skin assessment warm/dry. HEAD: Atraumatic. Normocephalic. EYES: Pupils equal and round. No scleral icterus. No injection or drainage. ENT: No nasal bleeding or discharge. Mucous membranes pink and moist. NECK: Trachea midline. No JVD. CARDIOVASCULAR: Regular rate and rhythm. No murmur appreciated. RESPIRATORY: No accessory muscle use. Clear to auscultation. Breath sounds equal bilaterally. GASTROINTESTINAL: Abdomen soft, non-tender, nondistended. Hepatic and splenic margins not palpable. MUSCULOSKELETAL: No obvious deformities. No clubbing. No cyanosis. No edema. NEUROLOGICAL: Awake and alert. No obvious cranial nerve deficits. Motor grossly within normal limits. Normal speech. PSYCHIATRIC: Appropriate mood and affect; insight and judgment normal. Course Initial Documented Vital Signs Temperature 97.9 F 05/30/18 18:20 Pulse Rate 88 05/30/18 18:20 Respiratory Rate 16 05/30/18 18:20 Blood Pressure 140/92 H 05/30/18 18:20 Pulse Oximetry 98 05/30/18 18:20 Last Documented Vital Signs Temperature 98.7 F 06/01/18 08:00 Pulse Rate 82 06/01/18 08:00 Respiratory Rate 20 06/01/18 08:00 Blood Pressure 115/67 06/01/18 08:00 Pulse Oximetry 95 06/01/18 11:21 NIH Stroke Scale NIH Stroke Scale Level of Consciousness: 0-Alert Orientation Questions: 0-Answers both correct Responds to Commands: 0-Both tasks correct Gaze Eye Movement: 0-Horizontal movement WNL Visual [place]: 0-No visual field defect Facial Movement: 0-Normal Motor Functions Arm LEFT: 2-Falls before 10 seconds Motor Functions Arm RIGHT: 0-No drift Motor Functions Leg LEFT: 2-Falls before 5 seconds Motor Functions Leg RIGHT: 0-No drift Limb Ataxia: 1-Ataxia in one limb Sensory Loss: 1-Mild sensory loss Best Language: 0-Normal Articulation: 0-Normal Extinction or Inattention Sensory: 0-Absent Total: 6 Medical Decision Making MDM Narrative Medical decision making narrative: 43-year-old male with multiple medical problems presents to the emergency department for complaint of new onset weakness since awakening at 5 AM with some improvement of symptoms but persistence. Patient was last normal according to him at 10:30 PM last evening. Patient placed on cardiac sonographer IV access obtained specimens collected and sent for resulting CT brain noncontrast ordered. Patient's medical record reviewed was seen 06/2017 for similar type presentation at which time a CT brain noncontrast was normal CT of the brain was normal as well as a CTA of the neck was found to be normal, patient was diagnosed with TIA. Patient will be evaluated for possible CVA at this point in time it is 8 PM patient is approximately 24 hours from last time he was at his last normal and has had symptoms for greater than 12 hours since onset of noticing left-sided weakness and therefore is not a candidate for TPA. Discussed recommendation for observation admission and further evaluation patient states that he will need pain medication because the ED bed is very uncomfortable for him and requests pain medication. NIH SS score is 6 CT brain noncontrast reveals no acute abnormality Patient continues to ask for pain medication regarding his chronic low back pain x-ray of the lumbar spine reveals no acute bony abnormality no fracture; patient given Percocet 10/325 for his chronic back pain. Case discussed with medicine physician Dr. Sood regarding new onset left-sided weakness with persistent left lower extremity weakness and improving left upper extremity weakness. Medical Screen Exam Complete: Yes Emergency Medical Condition: Yes Differential Diagnosis Differential Diagnosis: New onset weakness, TIA, CVA, seizure, atypical migraine , radiculopathy Medical Records Medical records reviewed: Yes I reviewed the patient's medical records. Lab Data Result diagrams: 05/31/18 10:01 05/31/18 10:01 Lab Results 05/30/18 05/30/18 05/30/18 Range/Units 18:17 19:45 19:45 WBC 4.7 (4.0-11.0) th/mm3 RBC 4.82 (4.50-5.90) mil/mm3 Hgb 13.3 (13.0-17.0) gm/dL Hct 40.3 (39.0-51.0) % MCV 83.6 (80.0-100.0) fL MCH 27.6 (27.0-34.0) pg MCHC 33.0 (32.0-36.0) % RDW 13.9 (11.6-17.2) % Plt Count 277 (150-450) th/mm3 MPV 7.5 (7.0-11.0) fL Neut % (Auto) 55.6 (16.0-70.0) % Lymph % (Auto) 35.2 (9.0-44.0) % [place] % (Auto) 6.9 (0.0-8.0) % Eos % (Auto) 1.7 (0.0-4.0) % Baso % (Auto) 0.6 (0.0-2.0) % Neut # (Auto) 2.6 (1.8-7.7) th/mm3 Lymph # (Auto) 1.7 (1.0-4.8) th/mm3 [place] # (Auto) 0.3 (0.0-0.9) th/mm3 Eos # (Auto) 0.1 (0.0-0.4) th/mm3 Baso # (Auto) 0.0 (0.0-0.2) th/mm3 WBC Differential . Differential Comment Auto diff final PT 10.0 (9.8-11.6) sec INR 1.0 Ratio APTT 29.1 (24.3-30.1) sec Sodium (136-145) meq/L Potassium (3.5-5.1) meq/L Chloride (98-107) meq/L Carbon Dioxide (21.0-32.0) meq/L Anion Gap (5-15) meq/L BUN (7-18) mg/dL Creatinine (0.60-1.30) mg/dL Estimated GFR (>89) mL/min POC Glucose 259 H (68-110) mg/dl Random Glucose (74-106) mg/dL Hemoglobin A1c (4.3-6.0) % Calcium (8.5-10.1) mg/dL Total Bilirubin (0.2-1.0) mg/dL AST (15-37) U/L ALT (12-78) U/L Alkaline Phosphatase (45-117) U/L Total Creatine Kinase (39-308) U/L Troponin I (0.02-0.05) ng/mL Total Protein (6.4-8.2) g/dL Albumin (3.4-5.0) g/dL Triglycerides (42-150) mg/dL Cholesterol (120-200) mg/dL LDL Cholesterol, Calc (0-99) mg/dL HDL Cholesterol (40.0-60.0) mg/dL Cholesterol/HDL Ratio Ratio Urine Color (Yellw/Straw) Urine Clarity (Clear) Urine pH (5.0-8.5) Ur Specific [place] (1.002-1.035) Urine Protein (Neg-Trace) mg/dL Urine Glucose (UA) (Negative) mg/dL Urine Ketones (Negative) mg/dL Urine Occult Blood (Negative) Urine Nitrate (Negative) Urine Bilirubin (Negative) Urine Urobilinogen (Less than 2) mg/dL Ur Leukocyte Esterase (Negative) Urine WBC (0-5) /hpf Micro UA Comment Ur Microscopic Review Urine Culture Comments Urine Opiates Screen (Neg) Ur Barbiturates Screen (Neg) Ur Amphetamines Screen (Neg) U Benzodiazepines Scrn (Neg) Urine Cocaine Screen (Neg) U Cannabinoids Screen (Neg) 05/30/18 05/30/18 05/30/18 Range/Units 19:45 19:45 19:45 WBC (4.0-11.0) th/mm3 RBC (4.50-5.90) mil/mm3 Hgb (13.0-17.0) gm/dL Hct (39.0-51.0) % MCV (80.0-100.0) fL MCH (27.0-34.0) pg MCHC (32.0-36.0) % RDW (11.6-17.2) % Plt Count (150-450) th/mm3 MPV (7.0-11.0) fL Neut % (Auto) (16.0-70.0) % Lymph % (Auto) (9.0-44.0) % [place] % (Auto) (0.0-8.0) % Eos % (Auto) (0.0-4.0) % Baso % (Auto) (0.0-2.0) % Neut # (Auto) (1.8-7.7) th/mm3 Lymph # (Auto) (1.0-4.8) th/mm3 [place] # (Auto) (0.0-0.9) th/mm3 Eos # (Auto) (0.0-0.4) th/mm3 Baso # (Auto) (0.0-0.2) th/mm3 WBC Differential Differential Comment PT (9.8-11.6) sec INR Ratio APTT (24.3-30.1) sec Sodium 136 (136-145) meq/L Potassium 3.7 (3.5-5.1) meq/L Chloride 104 (98-107) meq/L Carbon Dioxide 22.3 (21.0-32.0) meq/L Anion Gap 10 (5-15) meq/L BUN 9 (7-18) mg/dL Creatinine 0.82 (0.60-1.30) mg/dL Estimated GFR Greater than 89 (>89) mL/min POC Glucose (68-110) mg/dl Random Glucose 246 H (74-106) mg/dL Hemoglobin A1c (4.3-6.0) % Calcium 8.5 (8.5-10.1) mg/dL Total Bilirubin 0.2 (0.2-1.0) mg/dL AST 25 (15-37) U/L ALT 42 (12-78) U/L Alkaline Phosphatase 122 H (45-117) U/L Total Creatine Kinase 54 (39-308) U/L Troponin I Less than 0.02 L (0.02-0.05) ng/mL Total Protein 7.4 (6.4-8.2) g/dL Albumin 3.5 (3.4-5.0) g/dL Triglycerides (42-150) mg/dL Cholesterol (120-200) mg/dL LDL Cholesterol, Calc (0-99) mg/dL HDL Cholesterol (40.0-60.0) mg/dL Cholesterol/HDL Ratio Ratio Urine Color Yellow (Yellw/Straw) Urine Clarity Clear (Clear) Urine pH 5.0 (5.0-8.5) Ur Specific [place] 1.022 (1.002-1.035) Urine Protein Negative (Neg-Trace) mg/dL Urine Glucose (UA) 500 or greater (Negative) mg/dL Urine Ketones Negative (Negative) mg/dL Urine Occult Blood Negative (Negative) Urine Nitrate Negative (Negative) Urine Bilirubin Negative (Negative) Urine Urobilinogen Less than 2 (Less than 2) mg/dL Ur Leukocyte Esterase Negative (Negative) Urine WBC 1 (0-5) /hpf Micro UA Comment Culture not ind Ur Microscopic Review Not Reportable Urine Culture Comments Culture not ind Urine Opiates Screen Pos H (Neg) Ur Barbiturates Screen Neg (Neg) Ur Amphetamines Screen Neg (Neg) U Benzodiazepines Scrn Pos H (Neg) Urine Cocaine Screen Neg (Neg) U Cannabinoids Screen Neg (Neg) 05/30/18 05/31/18 05/31/18 Range/Units 22:09 10:01 10:01 WBC 5.4 (4.0-11.0) th/mm3 RBC 4.49 L (4.50-5.90) mil/mm3 Hgb 12.7 L (13.0-17.0) gm/dL Hct 37.4 L (39.0-51.0) % MCV 83.3 (80.0-100.0) fL MCH 28.4 (27.0-34.0) pg MCHC 34.1 (32.0-36.0) % RDW 13.6 (11.6-17.2) % Plt Count 252 (150-450) th/mm3 MPV 6.7 L (7.0-11.0) fL Neut % (Auto) 66.9 (16.0-70.0) % Lymph % (Auto) 24.2 (9.0-44.0) % [place] % (Auto) 7.3 (0.0-8.0) % Eos % (Auto) 1.0 (0.0-4.0) % Baso % (Auto) 0.6 (0.0-2.0) % Neut # (Auto) 3.6 (1.8-7.7) th/mm3 Lymph # (Auto) 1.3 (1.0-4.8) th/mm3 [place] # (Auto) 0.4 (0.0-0.9) th/mm3 Eos # (Auto) 0.1 (0.0-0.4) th/mm3 Baso # (Auto) 0.0 (0.0-0.2) th/mm3 WBC Differential . Differential Comment Auto diff final PT (9.8-11.6) sec INR Ratio APTT (24.3-30.1) sec Sodium 139 (136-145) meq/L Potassium 3.7 (3.5-5.1) meq/L Chloride 103 (98-107) meq/L Carbon Dioxide 24.7 (21.0-32.0) meq/L Anion Gap 11 (5-15) meq/L BUN 7 (7-18) mg/dL Creatinine 0.67 (0.60-1.30) mg/dL Estimated GFR Greater than 89 (>89) mL/min POC Glucose 212 H (68-110) mg/dl Random Glucose 203 H (74-106) mg/dL Hemoglobin A1c (4.3-6.0) % Calcium 8.4 L (8.5-10.1) mg/dL Total Bilirubin 0.4 (0.2-1.0) mg/dL AST 20 (15-37) U/L ALT 34 (12-78) U/L Alkaline Phosphatase 101 (45-117) U/L Total Creatine Kinase (39-308) U/L Troponin I (0.02-0.05) ng/mL Total Protein 6.8 D (6.4-8.2) g/dL Albumin 3.2 L (3.4-5.0) g/dL Triglycerides 191 H (42-150) mg/dL Cholesterol 146 (120-200) mg/dL LDL Cholesterol, Calc 73 (0-99) mg/dL HDL Cholesterol 34.9 L (40.0-60.0) mg/dL Cholesterol/HDL Ratio 4.18 Ratio Urine Color (Yellw/Straw) Urine Clarity (Clear) Urine pH (5.0-8.5) Ur Specific [place] (1.002-1.035) Urine Protein (Neg-Trace) mg/dL Urine Glucose (UA) (Negative) mg/dL Urine Ketones (Negative) mg/dL Urine Occult Blood (Negative) Urine Nitrate (Negative) Urine Bilirubin (Negative) Urine Urobilinogen (Less than 2) mg/dL Ur Leukocyte Esterase (Negative) Urine WBC (0-5) /hpf Micro UA Comment Ur Microscopic Review Urine Culture Comments Urine Opiates Screen (Neg) Ur Barbiturates Screen (Neg) Ur Amphetamines Screen (Neg) U Benzodiazepines Scrn (Neg) Urine Cocaine Screen (Neg) U Cannabinoids Screen (Neg) 05/31/18 05/31/18 05/31/18 Range/Units 10:01 11:53 17:18 WBC (4.0-11.0) th/mm3 RBC (4.50-5.90) mil/mm3 Hgb (13.0-17.0) gm/dL Hct (39.0-51.0) % MCV (80.0-100.0) fL MCH (27.0-34.0) pg MCHC (32.0-36.0) % RDW (11.6-17.2) % Plt Count (150-450) th/mm3 MPV (7.0-11.0) fL Neut % (Auto) (16.0-70.0) % Lymph % (Auto) (9.0-44.0) % [place] % (Auto) (0.0-8.0) % Eos % (Auto) (0.0-4.0) % Baso % (Auto) (0.0-2.0) % Neut # (Auto) (1.8-7.7) th/mm3 Lymph # (Auto) (1.0-4.8) th/mm3 [place] # (Auto) (0.0-0.9) th/mm3 Eos # (Auto) (0.0-0.4) th/mm3 Baso # (Auto) (0.0-0.2) th/mm3 WBC Differential Differential Comment PT (9.8-11.6) sec INR Ratio APTT (24.3-30.1) sec Sodium (136-145) meq/L Potassium (3.5-5.1) meq/L Chloride (98-107) meq/L Carbon Dioxide (21.0-32.0) meq/L Anion Gap (5-15) meq/L BUN (7-18) mg/dL Creatinine (0.60-1.30) mg/dL Estimated GFR (>89) mL/min POC Glucose 264 H 210 H (68-110) mg/dl Random Glucose (74-106) mg/dL Hemoglobin A1c 10.8 H (4.3-6.0) % Calcium (8.5-10.1) mg/dL Total Bilirubin (0.2-1.0) mg/dL AST (15-37) U/L ALT (12-78) U/L Alkaline Phosphatase (45-117) U/L Total Creatine Kinase (39-308) U/L Troponin I (0.02-0.05) ng/mL Total Protein (6.4-8.2) g/dL Albumin (3.4-5.0) g/dL Triglycerides (42-150) mg/dL Cholesterol (120-200) mg/dL LDL Cholesterol, Calc (0-99) mg/dL HDL Cholesterol (40.0-60.0) mg/dL Cholesterol/HDL Ratio Ratio Urine Color (Yellw/Straw) Urine Clarity (Clear) Urine pH (5.0-8.5) Ur Specific [place] (1.002-1.035) Urine Protein (Neg-Trace) mg/dL Urine Glucose (UA) (Negative) mg/dL Urine Ketones (Negative) mg/dL Urine Occult Blood (Negative) Urine Nitrate (Negative) Urine Bilirubin (Negative) Urine Urobilinogen (Less than 2) mg/dL Ur Leukocyte Esterase (Negative) Urine WBC (0-5) /hpf Micro UA Comment Ur Microscopic Review Urine Culture Comments Urine Opiates Screen (Neg) Ur Barbiturates Screen (Neg) Ur Amphetamines Screen (Neg) U Benzodiazepines Scrn (Neg) Urine Cocaine Screen (Neg) U Cannabinoids Screen (Neg) 05/31/18 06/01/18 Range/Units 20:23 09:27 WBC (4.0-11.0) th/mm3 RBC (4.50-5.90) mil/mm3 Hgb (13.0-17.0) gm/dL Hct (39.0-51.0) % MCV (80.0-100.0) fL MCH (27.0-34.0) pg MCHC (32.0-36.0) % RDW (11.6-17.2) % Plt Count (150-450) th/mm3 MPV (7.0-11.0) fL Neut % (Auto) (16.0-70.0) % Lymph % (Auto) (9.0-44.0) % [place] % (Auto) (0.0-8.0) % Eos % (Auto) (0.0-4.0) % Baso % (Auto) (0.0-2.0) % Neut # (Auto) (1.8-7.7) th/mm3 Lymph # (Auto) (1.0-4.8) th/mm3 [place] # (Auto) (0.0-0.9) th/mm3 Eos # (Auto) (0.0-0.4) th/mm3 Baso # (Auto) (0.0-0.2) th/mm3 WBC Differential Differential Comment PT (9.8-11.6) sec INR Ratio APTT (24.3-30.1) sec Sodium (136-145) meq/L Potassium (3.5-5.1) meq/L Chloride (98-107) meq/L Carbon Dioxide (21.0-32.0) meq/L Anion Gap (5-15) meq/L BUN (7-18) mg/dL Creatinine (0.60-1.30) mg/dL Estimated GFR (>89) mL/min POC Glucose 418 H 268 H (68-110) mg/dl Random Glucose (74-106) mg/dL Hemoglobin A1c (4.3-6.0) % Calcium (8.5-10.1) mg/dL Total Bilirubin (0.2-1.0) mg/dL AST (15-37) U/L ALT (12-78) U/L Alkaline Phosphatase (45-117) U/L Total Creatine Kinase (39-308) U/L Troponin I (0.02-0.05) ng/mL Total Protein (6.4-8.2) g/dL Albumin (3.4-5.0) g/dL Triglycerides (42-150) mg/dL Cholesterol (120-200) mg/dL LDL Cholesterol, Calc (0-99) mg/dL HDL Cholesterol (40.0-60.0) mg/dL Cholesterol/HDL Ratio Ratio Urine Color (Yellw/Straw) Urine Clarity (Clear) Urine pH (5.0-8.5) Ur Specific [place] (1.002-1.035) Urine Protein (Neg-Trace) mg/dL Urine Glucose (UA) (Negative) mg/dL Urine Ketones (Negative) mg/dL Urine Occult Blood (Negative) Urine Nitrate (Negative) Urine Bilirubin (Negative) Urine Urobilinogen (Less than 2) mg/dL Ur Leukocyte Esterase (Negative) Urine WBC (0-5) /hpf Micro UA Comment Ur Microscopic Review Urine Culture Comments Urine Opiates Screen (Neg) Ur Barbiturates Screen (Neg) Ur Amphetamines Screen (Neg) U Benzodiazepines Scrn (Neg) Urine Cocaine Screen (Neg) U Cannabinoids Screen (Neg) Imaging Data Radiologist's impression: Chest X-Ray 05/30/18 19:35 CONCLUSION: Minimal suspected areas of atelectasis or scarring at the bases. Head CT 05/30/18 19:35 CONCLUSION: 1. No intracranial abnormality is seen. 2. Left maxillary sinus disease. . Lumbar Spine X-Ray 05/30/18 19:37 CONCLUSION: No acute abnormality is seen. Carotid Doppler Study 05/31/18 00:00 CONCLUSION: Negative for hemodynamically significant carotid stenosis. Head CT 06/01/18 00:00 CONCLUSION: 1. Left sinus disease. No intracranial abnormality identified. . ECG Data EKG Prior to Arrival: No Prior ECG tracings: not available for review Interpretation: EKG: Normal sinus rhythm rate 84 normal axis and intervals no acute ST elevation injury pattern or ectopy noted Discharge Plan Discharge Disposition Patient Disposition: 30 Still Patient Discharge Condition Condition: Stable Discharge Details Diagnosis: CVA (cerebral vascular accident) Physicians Team ED Provider: Markus Barakat Primary Care Provider: Primary Care Soraida Quiroz Attending Provider: Marcus Olivier Other Providers: Nadira Acosta Discharge Interventions Interventions: ED Discharge Assessment Last Done: 05/30/18 22:10 Status ED Status: Left Department Discharge Information Discharge Date/Time: 05/30/18 22:10
[2018-05-30 20:08] LABS: Baso % (Auto) 0.6 % (0.0-2.0); Eos # (Auto) 0.1 th/mm3 (0.0-0.4); Eos % (Auto) 1.7 % (0.0-4.0); Hematocrit 40.3 % (39.0-51.0); Hemoglobin 13.3 gm/dL (13.0-17.0); Lymph # (Auto) 1.7 th/mm3 (1.0-4.8); Lymph % (Auto) 35.2 % (9.0-44.0); Mean Corpuscular Hemoglobin 27.6 pg (27.0-34.0); Mean Corpuscular Volume 83.6 fL (80.0-100.0); Mean Platelet Volume 7.5 fL (7.0-11.0); Mono # (Auto) 0.3 th/mm3 (0.0-0.9); Mono % (Auto) 6.9 % (0.0-8.0); Neut # (Auto) 2.6 th/mm3 (1.8-7.7); Neut % (Auto) 55.6 % (16.0-70.0); Platelet Count 277 th/mm3 (150-450); Red Blood Count 4.82 mil/mm3 (4.50-5.90); Red Cell Distribution Width 13.9 % (11.6-17.2); White Blood Count 4.7 th/mm3 (4.0-11.0)
--- NOTE | 2018-05-30 20:14 | XR ---
EXAM DATE: 05/30/2018 7:35 PM EDT AGE/SEX: 43 years / Male INDICATIONS: Infiltrate. Fell today due to left sided weakness. CLINICAL DATA: This is the patient's initial encounter. Patient reports that signs and symptoms have been present for 1 day and indicates a pain score of 0/10. MEDICAL/SURGICAL HISTORY: . Cardiovascular disease. Diabetes mellitus type 1. Seizures. Nephro stomy tube, right. COMPARISON: [facility], CHEST SINGLE AP, 03/19/2017. . FINDINGS: There is a pacing device seen in the left chest. The heart size is normal. There are some minimal micaela ear density seen at the bases. No effusion is seen. No acute bony abnormality is seen. CONCLUSION: Minimal suspected areas of atelectasis or scarring at the bases. Electronically signed by: Valdez Ace MD 05/30/2018 8:12 PM EDT
[2018-05-30 20:17] LABS: Amphetamine Screen,Urine Neg (Neg); Barbiturate Screen,Urine Neg (Neg); Cannabinoid Screen,Urine Neg (Neg); Cocaine Screen,Urine Neg (Neg)
--- NOTE | 2018-05-30 20:19 | XR ---
EXAM DATE: 05/30/2018 7:37 PM EDT AGE/SEX: 43 years / Male INDICATIONS: Fall today due to left sided weakness. CLINICAL DATA: This is the patient's initial encounter. Patient reports that signs and symptoms have been present for 1 day and indicates a pain score of 9/10. MEDICAL/SURGICAL HISTORY: . Cardiovascular disease. Diabetes mellitus type 1. Seizures. Pacema ker. COMPARISON: No prior exams available for comparison. FINDINGS: Transpedicular screws are seen at the L4 and L5 levels secured with connecting rods. There is high de nsity material within the L4-5 disc. The L4-L5 disc space is narrowed. The hardware appears well plac ed. The lumbar vertebral bodies are normal in height and normally aligned. A fracture is not seen. CONCLUSION: No acute abnormality is seen. Electronically signed by: Valdez Ace MD 05/30/2018 8:18 PM EDT
[2018-05-30 20:20] LABS: Bilirubin,Urine Negative (Negative); Clarity,Urine Clear (Clear); Color,Urine Yellow (Yellw/Straw); Glucose,Urine (UA) 500 or Greater mg/dL (Negative); Leukocyte Esterase,Urine Negative (Negative); Nitrite,Urine Negative (Negative); Specific Gravity,Urine 1.022 (1.002-1.035)
[2018-05-30 20:28] LABS: Activated Partial Thrombo Time 29.1 sec (24.3-30.1)
[2018-05-30 20:47] LABS: Opiate Screen,Urine Pos (Neg)
--- NOTE | 2018-05-30 21:00 | CT ---
EXAM DATE: 05/30/2018 7:56 PM EDT AGE/SEX: 43 years / Male INDICATIONS: Left sided weakness. CLINICAL DATA: This is the patient's initial encounter. Patient reports that signs and symptoms have been present for 1 day and indicates a pain score of 0/10. MEDICAL/SURGICAL HISTORY: Diabetes. Seizures. Pacemaker. RADIATION DOSE: 56.35 CTDI (mGy) COMPARISON: C, CTA BRAIN W 3D RECON, 06/28/2017. . TECHNIQUE: CT of the head without contrast. Using automated exposure control and adjustment of the mA and/or kV according to patient size, radiation dose was kept as low as reasonably achievable to ob tain optimal diagnostic quality images. DICOM format image data is available electronically for revi ew and comparison. FINDINGS: Cerebrum: The ventricles are normal for age. No evidence of midline shift, mass lesion, hemorrhage or acute infarction. No extraaxial fluid collections are seen. Posterior Fossa: The cerebellum and brainstem are intact. The 4th ventricle is midline. The cerebe llopontine angle is unremarkable. Extracranial: The visualized portion of the orbits is intact. There is left maxillary sinus disease. Skull: The calvaria is intact. No evidence of skull fracture. CONCLUSION: 1. No intracranial abnormality is seen. 2. Left maxillary sinus disease. . Electronically signed by: Valdez Ace MD 05/30/2018 8:58 PM EDT
[2018-05-30 21:14] LABS: Alanine Aminotransferase 42 U/L (12-78)
[2018-05-30] MEDS ORDERED: oxyCODONE/Acetaminophen 10/325 Tablet PO ONE (21:16)
[2018-05-30 21:18] LABS: Alkaline Phosphatase 122 U/L (45-117); Total Protein 7.4 g/dL (6.4-8.2)
[2018-05-30] MEDS ORDERED: Dextrose 50% in Water 50 ML Vial IV.PUSH PRN (21:25)
[2018-05-30] MEDS ORDERED: Acetaminophen 325 MG Tablet PO PRN (21:26)
[2018-05-30] MEDS ORDERED: Bisacodyl 10 MG Supp RECTAL PRN (21:26)
[2018-05-30] MEDS ORDERED: Morphine Sulfate Inj 2 MG/ML Vial IV.PUSH PRN (21:27)
--- NOTE | 2018-05-30 21:29 | P.HPIM ---
History of Present Illness Primary Care Physician: No Primary Care Physician History of Present Illness: This is a 43-year-old male with a PMH of HTN, Hyperlipidemia, Pacemaker, Seizure Disorder, DM, h/o DVT/PE and Chronic Back Pain who was brought to the ER for left-sided weakness. Pt reports he woke up this morning at 5am and felt "unsteady" w/ fall, believes he also had associated slurred speech at that time. No head trauma or LOC, reports severe back pain, 8/10, non-radiating. States he went back to bed and woke up at 9am w/ persistent symptoms in addition left eye blurriness and left upper and lower extremity weakness. LUE weakness improved, however LLE persists. On Eliquis for h/o DVT/PE, however off medications x2 months since he has no PCP to refill medications. Also on Keppra 500mg bid, obtains scrips from Pain Management doc, last seizure approx 5 -6 yrs ago, but reports "small seizures", approx 6 episodes in the last 1mo, states he "stares blankly and I go out of it". No recent changes to medications. States "I know I didn't have a seizure" today. On arrival, BP 140 /92, HR 88, O2 sat 98% on RA, Afebrile. CBC unremarkable. INR 1.0. Chemistry unremarkable except for BS 246. Troponin negative. UA negative. Urine Drug Screen positive for Opiates and Benzos. CT Head with no acute findings. CXR atelectasis at bases. L-spine X-ray no acute abnormalities. - Diagnosis (1) CVA (cerebral vascular accident) (2) Seizure disorder (3) H/O deep venous thrombosis (4) DM (diabetes mellitus) (5) Back pain Review of Systems PAST FAMILY HISTORY: +significant family h/o CVA All other systems reviewed negative except as stated in HPI PMFSH - History History Provided By: Medical Record (TIA 06/[address] brain, CTA brain, and CTA neck) - Medical History Medical History: Medical History (Last Reviewed 05/30/18 @ 19:50 by Mily Gutierrez MD) Diabetes Pacemaker Seizure - Surgical History Surgical History: Surgical History (Last Reviewed 05/30/18 @ 19:50 by Mily Gutierrez MD) Hx of shoulder surgery - Tobacco History Second Hand Smoke Exposure: No Smoking Status: Never smoker - Alcohol History How Often Do You Have a Drink Containing Alcohol: Never - Substance Use History Substance History: No History of Abuse - Travel History Recent Travel in the [place] Within the Last 8 Weeks: No Recent Travel Out of the Country Within the Last 8 Weeks: No - Immunization History Tetanus Immunization: >5 Years Medications and Allergies Active Medications: Active Medications Acetaminophen (Tylenol) 650 mg PO Q4H PRN PRN Reason: Temp > 100.4 Hydrocodone Bitart/Acetaminophen (Kite 5/325) 1 tab PO Q4H PRN PRN Reason: PAIN 3-5 Al Hydroxide/Mg Hydroxide (Milk Of Magnesia Liq) 30 ml PO Q12H PRN PRN Reason: Mild Constipation Bisacodyl (Dulcolax Supp) 10 mg RECTAL DAILY PRN PRN Reason: SEVERE CONSITIPATION Dextrose (D50w Vial) 50 ml IV.PUSH UNSCH PRN PRN Reason: PER HYPOGLYCEMIA PROTOCOL Enalaprilat (Vasotec Inj) 1.25 mg IV.PUSH Q4H PRN PRN Reason: For SBP > 220 or DBP > 120 Glucagon (Glucagon Inj) 1 mg OTHER UNSCH PRN PRN Reason: for Hypoglycemia Protocol Sodium Chloride (Ns Inj) 1,000 mls @ 70 mls/hr IV.CONT .[id number] [facility] Stop: 05/31/18 10:02 Last Admin: 05/30/18 20:19 Dose: 70 mls/hr Insulin Aspart (Novolog Insulin Correctional Sugar Inj) 0 unit SQ ACHS [facility]; Protocol Lactulose (Lactulose Liq) 30 ml PO DAILY PRN PRN Reason: SEVERE CONSITIPATION Morphine Sulfate (Morphine Inj) 2 mg IV.PUSH Q4H PRN PRN Reason: PAIN 6-10 Ondansetron HCl (Zofran Inj) 4 mg IV.PUSH Q6H PRN PRN Reason: NAUSEA OR VOMITING Pravastatin Sodium (Pravachol) 40 mg PO HS AMY Senna/Docusate Sodium (Bridgett-Colace) 1 tab PO BID [facility] Sennosides (Senokot) 17.2 mg PO Q12H PRN PRN Reason: Moderate Constipation Sodium Chloride (Ns Flush) 2 ml IV.FLUSH PRN PRN PRN Reason: FLUSH AFTER USING IV ACCESS Sodium Chloride (Ns Flush) 2 ml IV.FLUSH BID AMY Sodium Chloride (Ns Flush) 2 ml IV.FLUSH PRN PRN PRN Reason: FLUSH AFTER USING IV ACCESS Allergies Allergy/AdvReac Type Severity Reaction Status Date / Time nitroglycerin Allergy Severe Hives Verified 05/30/18 18:19 vancomycin Allergy Severe Hives Verified 05/30/18 18:19 acetaminophen [From Tylenol] AdvReac Nausea/Vomi Verified 05/30/18 21:36 ting Home Medications Medication Instructions Recorded Confirmed Type alprazolam [Xanax] 2 mg PO 5XW PRN 05/30/18 05/30/18 History apixaban [Eliquis] 5 mg PO BID 05/30/18 05/30/18 History insulin aspart U-100 [Novolog 1 unit SUBCUT TID 05/30/18 05/30/18 History U-100 Insulin aspart] insulin glargine [Lantus U-100 40 unit SUBCUT HS 05/30/18 05/30/18 History Insulin] levetiracetam [Keppra] 500 mg PO BID 05/30/18 05/30/18 History lisinopril 20 mg PO DAILY 05/30/18 05/30/18 History oxycodone 30 mg PO Q4-6H PRN 05/30/18 05/30/18 History pregabalin [Lyrica] 200 mg PO TID 05/30/18 05/30/18 History Exam Vital signs: Vital Signs 05/30/18 18:20 05/30/18 19:42 05/30/18 19:46 Temperature 97.9 F Pulse Rate 88 89 Respiratory Rate 16 Blood Pressure 140/92 H Pulse Oximetry 98 100 Intake & Output 05/30/18 05/30/18 05/31/18 06:59 18:59 06:59 Weight 120.202 kg Narrative: PE: GENERAL: Middle-aged white male in no acute distress. SKIN: Focused skin assessment warm and dry. HEENT: PERRLA, EOMI. No scleral icterus or conjunctival pallor. No lid lag or facial droop. CARDIOVASCULAR: Regular rate and rhythm. No obvious murmurs to auscultation. No chest tenderness to palpation. RESPIRATORY: No obvious rhonchi or wheezing. Clear to auscultation. Breath sounds equal bilaterally. GASTROINTESTINAL: Abdomen soft, non-tender, nondistended. BS normal. MUSCULOSKELETAL: Extremities without clubbing, cyanosis, or edema. No obvious deformities. NEUROLOGICAL: Awake, alert and oriented x4. No focal neurologic deficits. Decreased sensation LLE. Moving both upper and lower extremities spontaneously. PSYCHIATRIC: Appropriate mood and affect. Insight and judgment normal. Results - Labs CBC & Chem 7: 05/30/18 19:45 05/30/18 19:45 Labs: Short CBC 05/30/18 Range/Units 19:45 WBC 4.7 (4.0-11.0) th/mm3 Hgb 13.3 (13.0-17.0) gm/dL Hct 40.3 (39.0-51.0) % Plt Count 277 (150-450) th/mm3 Cardiac Enzymes 05/30/18 Range/Units 19:45 Total Creatine Kinase 54 (39-308) U/L Troponin I Less than 0.02 L (0.02-0.05) ng/mL Liver Function 05/30/18 Range/Units 19:45 Total Bilirubin 0.2 (0.2-1.0) mg/dL ALT 42 (12-78) U/L Alkaline Phosphatase 122 H (45-117) U/L Urine 05/30/18 Range/Units 19:45 Urine Color Yellow (Yellw/Straw) Urine Clarity Clear (Clear) Urine pH 5.0 (5.0-8.5) Ur Specific [place] 1.022 (1.002-1.035) Urine Protein Negative (Neg-Trace) mg/dL Urine Glucose (UA) 500 or greater (Negative) mg/dL - Imaging Impressions Chest X-Ray 05/30/18 19:35 CONCLUSION: Minimal suspected areas of atelectasis or scarring at the bases. Head CT 05/30/18 19:35 CONCLUSION: 1. No intracranial abnormality is seen. 2. Left maxillary sinus disease. . Lumbar Spine X-Ray 05/30/18 19:37 CONCLUSION: No acute abnormality is seen. Caprini VTE Risk Assessment Caprini VTE Risk Assessment: Moderate/High Risk (score >= 2) Caprini Risk Assessment Model: Point Value = 1 Point Value = 2 Point Value = 3 Point Value = 5 Age 41-60 Minor surgery BMI > 25 kg/m2 Swollen legs Varicose veins or History of unexplained or recurrent spontaneous Oral contraceptives or hormone replacement Sepsis (< 1 month) Serious lung disease, including pneumonia (< 1 month) Abnormal pulmonary function Acute myocardial infarction Congestive heart failure (< 1 month) History of inflammatory bowel disease Medical patient at bed rest Age 61-74 Arthroscopic surgery Major open surgery (> 45 min) Laparoscopic surgery (> 45 min) Malignancy Confined to bed (> 72 hours) Immobilizing plaster cast Central venous access Age >= 75 History of VTE Family history of VTE Factor V Leiden Prothrombin [id number] Lupus anticoagulant Anticardiolipin antibodies Elevated serum homocysteine Heparin-induced thrombocytopenia Other congenital or acquired thrombophilia Stroke (< 1 month) Elective arthroplasty Hip, pelvis, or leg fracture Acute spinal cord injury (< 1 month) Prophylaxis Regimen: Total Risk Factor Score Risk Level Prophylaxis Regimen 0-1 Low Early ambulation 2 Moderate Order ONE of the following: *Sequential Compression Device (SCD) *Heparin 5000 units SQ BID 3-4 Higher Order ONE of the following medications: *Heparin 5000 units SQ TID *Enoxaparin/Lovenox 40 mg SQ daily (WT < 150 kg, CrCl > 30 mL/min) *Enoxaparin/Lovenox 30 mg SQ daily (WT < 150 kg, CrCl > 10-29 mL/min) *Enoxaparin/Lovenox 30 mg SQ BID (WT < 150 kg, CrCl > 30 mL/min) AND/OR *Sequential Compression Device (SCD) 5 or more Highest Order ONE of the following medications: *Heparin 5000 units SQ TID (Preferred with Epidurals) *Enoxaparin/Lovenox 40 mg SQ daily (WT < 150 kg, CrCl > 30 mL/min) *Enoxaparin/Lovenox 30 mg SQ daily (WT < 150 kg, CrCl > 10-29 mL/min) *Enoxaparin/Lovenox 30 mg SQ BID (WT < 150 kg, CrCl > 30 mL/min) AND *Sequential Compression Device (SCD) Assessment and Plan - Assessment (1) CVA (cerebral vascular accident) Code(s): I63.9 - Cerebral infarction, unspecified Status: Acute (2) Seizure disorder Code(s): G40.909 - Epilepsy, unspecified, not intractable, without status epilepticus Status: Acute (3) H/O deep venous thrombosis Code(s): Z86.718 - Personal history of other venous thrombosis and embolism Status: Acute (4) DM (diabetes mellitus) Code(s): E11.9 - Type 2 diabetes mellitus without complications Status: Acute (5) Back pain Code(s): M54.9 - Dorsalgia, unspecified Status: Acute - Plan A/P: 1. CVA: c/o gait instability and LUE/LLE weakness w/ associated slurred speech , now w/ ongoing LLE numbness/tingling, other symptoms improved. ?Gene's Paralysis, h/o seizure disorder, however doesn't believe he had seizure. CT Head w/ no acute findings, images reviewed. Unable to obtain MRI/MRA due to Pacemaker which is not compatible. Check Carotid US, Neuro Checks, Consult PT/ OT for further eval, Consult Neurology for further eval/recommendations. 2. Seizure Disorder: On Keppra 500mg bid, reports multiple "small seizures", approx 6 episodes in the last 1-2 months, no grand mal seizures for approx 5- 6yrs. Seizure Precautions, resume home Keppra, Consult Neurology. 3. H/o DVT/PE: Off Eliquis x2 months as no PCP to obtain prescriptions, will resume Eliquis. 4. Back Pain: Chronic Back Pain, w/ acute exacerbation after fall today. L- Spine X-ray w/ no acute findings, images reviewed. Will resume home Oxycodone. 5. DM: Sliding scale w/ Accu-Cheks. Check Hgb A1c. 6. DVT Prophylaxis: Eliquis 7. Social work for d/c planning as needed 8. Case discussed w/ ER physician at length, labs/records/imaging reviewed by me.
[2018-05-30 21:31] LABS: Albumin 3.5 g/dL (3.4-5.0); Anion Gap 10 meq/L (5-15); Aspartate Aminotransferase 25 U/L (15-37); Blood Urea Nitrogen 9 mg/dL (7-18); Calcium 8.5 mg/dL (8.5-10.1); Carbon Dioxide 22.3 meq/L (21.0-32.0); Chloride 104 meq/L (98-107); Glomerular Filtration Rate Greater Than 89 mL/min (>89); Glucose,Random 246 mg/dL (74-106); Potassium 3.7 meq/L (3.5-5.1); Sodium 136 meq/L (136-145)
[2018-05-30 21:39] LABS: Creatine Kinase 54 U/L (39-308)
[2018-05-31] MEDS: Senna/Docusate Sodium 8.6/50 MG Tablet PO SCH ×2 (08:04→20:33)
--- NOTE | 2018-05-31 08:32 | US ---
EXAM DATE: 05/31/2018 12:00 AM EDT AGE/SEX: 43 years / Male INDICATIONS: Left sided weakness. CLINICAL DATA: This is the patient's initial encounter. Patient reports that signs and symptoms have been present for 1 day and indicates a pain score of 8/10. MEDICAL/SURGICAL HISTORY: Hypertension. Diabetes. Deep venous thrombosis. PE. TIA. Chronic pain. Fusion, cervical. Fusion, lumbar. Shoulder surgery. COMPARISON: [facility], [place] CAROTID ARTERIES, 04/07/2017. . VELOCITY PARAMETERS: ICA/CCA Ratio: Right 1.0 , Left 0.86 ICA: Right 94 cm/sec, Left 89 cm/sec CCA: Right 93 cm/sec, Left 103 cm/sec ECA: Right 119 cm/sec, Left 85 cm/sec Vertebral: Right 41 cm/sec antegrade, Left 55 cm/sec antegrade FINDINGS: Right Carotid: No significant plaque is visualized.The waveforms are within normal limits. Left Carotid: No significant plaque is visualized. The waveforms are within normal limits. Other: None. CONCLUSION: Negative for hemodynamically significant carotid stenosis. Electronically signed by: Darvin Cordon MD 05/31/2018 8:30 AM EDT
[2018-05-31] MEDS ORDERED: levETIRAcetam 500 MG Tablet PO SCH (09:00)
[2018-05-31] MEDS: Insulin NovoLOG Aspart Correctional Sugar Inj SQ SCH ×4 (09:23→20:30)
--- NOTE | 2018-05-31 10:19 | P.CONNEU ---
History of Present Illness Service: Neurology Consult date: 05/31/18 Reason for Consult: Stroke, seizure Primary Care Provider: No Primary Care Physician Chief Complaint: left sided weakness History of Present Illness: 43 y/o male with hx of HTN, hyperlipidemia, DVT, seizure disorder and chronic pain presented to the ER with complaints of left sided weakness. He reports he has hx of generalized seizures and had been stable on Keppra 500mg bid. Lately he notes that he has been waking up with his lips and tongue bitten or having episodes of staring off into space during the day where he is unable to talk. He does not know these events are happening during the day except for his daughter witnessing them. He denies hx of TIA or stroke. He has a pace maker for syncope after LOOP recorder found bradycardia with pauses. He had been on Eliquis for DVT but stopped 2 months ago when he ran out of his rx as he reports he had been told conflicting information on whether he needed to continue on it. He denies hx of a-fib. He has not been seeing a family practice physician or neurologist for the past few years He reports 2 days ago he woke up and found he had bit his tongue. He noted some mild left sided weakness, he went back to sleep and when he got up to walk the weakness was worse and he could not walk, which is why he came to the ER. CT scan did not show any acute abnormalities. CUS was unremarkable. He cannot have MRI/MRA due to pacemaker not being compatible. Review of Systems All other systems reviewed negative except as stated in HPI [facility] - History History Provided By: Medical Record (TIA 06/[address] brain, CTA brain, and CTA neck) - Medical History Medical History: Medical History (Last Updated 05/31/18 @ 10:12 by Soha Ruvalcaba) Back pain Cervical fusion syndrome DVT (deep venous thrombosis) Diabetes Fusion of lumbar spine Pacemaker Seizure - Surgical History Surgical History: Surgical History (Last Reviewed 05/31/18 @ 06:43 by Declan Jarvis) Hx of shoulder surgery - Social History I have reviewed the patient's Social History: Yes - Tobacco History Second Hand Smoke Exposure: No Smoking Status: Never smoker - Alcohol History How Often Do You Have a Drink Containing Alcohol: Never - Substance Use History Substance History: No History of Abuse - Travel History Recent Travel in the [facility] Within the Last 8 Weeks: No Recent Travel Out of the Country Within the Last 8 Weeks: No - Immunization History Tetanus Immunization: >5 Years Medications and Allergies Allergies Allergy/AdvReac Type Severity Reaction Status Date / Time nitroglycerin Allergy Severe Hives Verified 05/30/18 18:19 vancomycin Allergy Severe Hives Verified 05/30/18 18:19 acetaminophen [From Tylenol] AdvReac Nausea/Vomi Verified 05/30/18 21:36 ting Home Medications Medication Instructions Recorded Confirmed Type alprazolam [Xanax] 2 mg PO 5XW PRN 05/30/18 05/30/18 History apixaban [Eliquis] 5 mg PO BID 05/30/18 05/30/18 History insulin aspart U-100 [Novolog 1 unit SUBCUT TID 05/30/18 05/30/18 History U-100 Insulin aspart] insulin glargine [Lantus U-100 40 unit SUBCUT HS 05/30/18 05/30/18 History Insulin] levetiracetam [Keppra] 500 mg PO BID 05/30/18 05/30/18 History lisinopril 20 mg PO DAILY 05/30/18 05/30/18 History oxycodone 30 mg PO Q4-6H PRN 05/30/18 05/30/18 History pregabalin [Lyrica] 200 mg PO TID 05/30/18 05/30/18 History Active Medications: Active Medications Al Hydroxide/Mg Hydroxide (Milk Of Magnesia Liq) 30 ml PO Q12H PRN PRN Reason: Mild Constipation Apixaban (Eliquis) 5 mg PO BID [facility] Last Admin: 05/31/18 08:04 Dose: 5 mg Bisacodyl (Dulcolax Supp) 10 mg RECTAL DAILY PRN PRN Reason: SEVERE CONSITIPATION Dextrose (D50w Vial) 50 ml IV.PUSH UNSCH PRN PRN Reason: PER HYPOGLYCEMIA PROTOCOL Enalaprilat (Vasotec Inj) 1.25 mg IV.PUSH Q4H PRN PRN Reason: For SBP > 220 or DBP > 120 Glucagon (Glucagon Inj) 1 mg OTHER UNSCH PRN PRN Reason: for Hypoglycemia Protocol Insulin Aspart (Novolog Insulin Correctional Sugar Inj) 0 unit SQ ACHS AMY; Protocol Last Admin: 05/31/18 09:23 Dose: 1 unit Lactulose (Lactulose Liq) 30 ml PO DAILY PRN PRN Reason: SEVERE CONSITIPATION Levetiracetam (Keppra) 750 mg PO BID [facility] Morphine Sulfate (Morphine Inj) 2 mg IV.PUSH Q4H PRN PRN Reason: PAIN 6-10 Last Admin: 05/30/18 22:08 Dose: 2 mg Ondansetron HCl (Zofran Inj) 4 mg IV.PUSH Q6H PRN PRN Reason: NAUSEA OR VOMITING Oxycodone HCl (Roxicodone) 30 mg PO Q4H PRN PRN Reason: PAIN 3-5 Last Admin: 05/31/18 08:03 Dose: 30 mg Pravastatin Sodium (Pravachol) 40 mg PO HS [facility] Pregabalin (Lyrica) 200 mg PO TID [facility] Last Admin: 05/31/18 08:04 Dose: 200 mg Senna/Docusate Sodium (Bridgett-Colace) 1 tab PO BID [facility] Last Admin: 05/31/18 08:04 Dose: 1 tab Sennosides (Senokot) 17.2 mg PO Q12H PRN PRN Reason: Moderate Constipation Sodium Chloride (Ns Flush) 2 ml IV.FLUSH BID [facility] Last Admin: 05/31/18 09:25 Dose: 2 ml Sodium Chloride (Ns Flush) 2 ml IV.FLUSH UNSCH PRN PRN Reason: FLUSH AFTER USING IV ACCESS Exam Vital signs: Vital Signs 05/30/18 18:20 05/30/18 19:42 05/30/18 19:46 Temperature 97.9 F Pulse Rate 88 89 Respiratory Rate 16 Blood Pressure 140/92 H Pulse Oximetry 98 100 05/30/18 22:05 05/31/18 00:00 05/31/18 04:00 Temperature 97.9 F 98 F Pulse Rate 79 74 73 Respiratory Rate 20 18 18 Blood Pressure 136/85 137/96 H 101/59 L Pulse Oximetry 100 99 94 L 05/31/18 04:02 05/31/18 08:00 Temperature 98.0 F Pulse Rate 73 74 Respiratory Rate 22 Blood Pressure 139/83 Pulse Oximetry 96 Intake & Output 05/30/18 05/31/18 05/31/18 18:59 06:59 18:59 Intake Total 1000 / 1000 Balance 1000 / 1000 Weight 120.202 kg 270 kg Intake: IV 1000 / 1000 NS Inj 1,000 ML @ 70 mls/hr IV. 1000 / 1000 CONT .[id number] [facility] Rx#:[id number] Other: # Voids 2 Weight On Admission 270 kg - Routine Neurological Exam normal sinus rhythm, has pacemaker no bruit alert and orient x 3 CN II-XII intact, EOMi, PERRL muscle strength- normal on the right, 3-4/5 on the left, decreased switch foreman strength on the left, tone normal reflexes 1+ sym toes equiv sensation- decreased to light touch and vibration on the left compared to the right, states it is a 0-2/10 in intensity compared to the right gait withheld speech - slightly dysarthric no tremor difficulty with f-n-f on the left, decreased coordination with finger taps on the left Results - Labs CBC & Chem 7: 05/31/18 10:01 05/30/18 19:45 Labs: Laboratory Results - last 24 hr 05/30/18 05/30/18 05/30/18 18:17 19:45 19:45 WBC 4.7 RBC 4.82 Hgb 13.3 Hct 40.3 MCV 83.6 MCH 27.6 MCHC 33.0 RDW 13.9 Plt Count 277 MPV 7.5 Neut % (Auto) 55.6 Lymph % (Auto) 35.2 [place] % (Auto) 6.9 Eos % (Auto) 1.7 Baso % (Auto) 0.6 Neut # (Auto) 2.6 Lymph # (Auto) 1.7 [place] # (Auto) 0.3 Eos # (Auto) 0.1 Baso # (Auto) 0.0 WBC Differential . Differential Comment Auto diff final PT 10.0 INR 1.0 APTT 29.1 Sodium Potassium Chloride Carbon Dioxide Anion Gap BUN Creatinine Estimated GFR POC Glucose 259 H Random Glucose Calcium Total Bilirubin AST ALT Alkaline Phosphatase Total Creatine Kinase Troponin I Total Protein Albumin Urine Color Urine Clarity Urine pH Ur Specific [place] Urine Protein Urine Glucose (UA) Urine Ketones Urine Occult Blood Urine Nitrate Urine Bilirubin Urine Urobilinogen Ur Leukocyte Esterase Urine WBC Micro UA Comment Ur Microscopic Review Urine Culture Comments Urine Opiates Screen Ur Barbiturates Screen Ur Amphetamines Screen U Benzodiazepines Scrn Urine Cocaine Screen U Cannabinoids Screen 05/30/18 05/30/18 05/30/18 19:45 19:45 19:45 WBC RBC Hgb Hct MCV MCH MCHC RDW Plt Count MPV Neut % (Auto) Lymph % (Auto) [place] % (Auto) Eos % (Auto) Baso % (Auto) Neut # (Auto) Lymph # (Auto) [place] # (Auto) Eos # (Auto) Baso # (Auto) WBC Differential Differential Comment PT INR APTT Sodium 136 Potassium 3.7 Chloride 104 Carbon Dioxide 22.3 Anion Gap 10 BUN 9 Creatinine 0.82 Estimated GFR Greater than 89 POC Glucose Random Glucose 246 H Calcium 8.5 Total Bilirubin 0.2 AST 25 ALT 42 Alkaline Phosphatase 122 H Total Creatine Kinase 54 Troponin I Less than 0.02 L Total Protein 7.4 Albumin 3.5 Urine Color Yellow Urine Clarity Clear Urine pH 5.0 Ur Specific [place] 1.022 Urine Protein Negative Urine Glucose (UA) 500 or greater Urine Ketones Negative Urine Occult Blood Negative Urine Nitrate Negative Urine Bilirubin Negative Urine Urobilinogen Less than 2 Ur Leukocyte Esterase Negative Urine WBC 1 Micro UA Comment Culture not ind Ur Microscopic Review Not Reportable Urine Culture Comments Culture not ind Urine Opiates Screen Pos H Ur Barbiturates Screen Neg Ur Amphetamines Screen Neg U Benzodiazepines Scrn Pos H Urine Cocaine Screen Neg U Cannabinoids Screen Neg 05/30/18 22:09 WBC RBC Hgb Hct MCV MCH MCHC RDW Plt Count MPV Neut % (Auto) Lymph % (Auto) [place] % (Auto) Eos % (Auto) Baso % (Auto) Neut # (Auto) Lymph # (Auto) [place] # (Auto) Eos # (Auto) Baso # (Auto) WBC Differential Differential Comment PT INR APTT Sodium Potassium Chloride Carbon Dioxide Anion Gap BUN Creatinine Estimated GFR POC Glucose 212 H Random Glucose Calcium Total Bilirubin AST ALT Alkaline Phosphatase Total Creatine Kinase Troponin I Total Protein Albumin Urine Color Urine Clarity Urine pH Ur Specific [place] Urine Protein Urine Glucose (UA) Urine Ketones Urine Occult Blood Urine Nitrate Urine Bilirubin Urine Urobilinogen Ur Leukocyte Esterase Urine WBC Micro UA Comment Ur Microscopic Review Urine Culture Comments Urine Opiates Screen Ur Barbiturates Screen Ur Amphetamines Screen U Benzodiazepines Scrn Urine Cocaine Screen U Cannabinoids Screen - Imaging Impressions Chest X-Ray 05/30/18 19:35 CONCLUSION: Minimal suspected areas of atelectasis or scarring at the bases. Head CT 05/30/18 19:35 CONCLUSION: 1. No intracranial abnormality is seen. 2. Left maxillary sinus disease. . Lumbar Spine X-Ray 05/30/18 19:37 CONCLUSION: No acute abnormality is seen. Carotid Doppler Study 05/31/18 00:00 CONCLUSION: Negative for hemodynamically significant carotid stenosis. Review/Management - Diagnosis (1) CVA (cerebral vascular accident) Code(s): I63.9 - Cerebral infarction, unspecified Status: Acute Current Visit: Yes (2) Seizure disorder Code(s): G40.909 - Epilepsy, unspecified, not intractable, without status epilepticus Status: Acute Current Visit: Yes - Review/Management Plan: CT head negative CUS negative will get CTA head continue Eliquis will increase Keppra to 750mg bid ECHO pending lipid and hgbA1C pending blood pressure control goal LDL <70 pt aware per [place] law no driving for 6 months from last seizure work with PT, OT, ST Addendum note pt seen d/w PA w/u ongoing needs to stay on anticoagulation given his risk factors pt-ot-st [facility] consult [facility]
[2018-05-31 10:25] LABS: Baso % (Auto) 0.6 % (0.0-2.0); Eos # (Auto) 0.1 th/mm3 (0.0-0.4); Hematocrit 37.4 % (39.0-51.0); Hemoglobin 12.7 gm/dL (13.0-17.0); Lymph # (Auto) 1.3 th/mm3 (1.0-4.8); Lymph % (Auto) 24.2 % (9.0-44.0); Mean Corpuscular HGB Conc 34.1 % (32.0-36.0); Mean Corpuscular Hemoglobin 28.4 pg (27.0-34.0); Mean Corpuscular Volume 83.3 fL (80.0-100.0); Mean Platelet Volume 6.7 fL (7.0-11.0); Mono # (Auto) 0.4 th/mm3 (0.0-0.9); Mono % (Auto) 7.3 % (0.0-8.0); Neut # (Auto) 3.6 th/mm3 (1.8-7.7); Neut % (Auto) 66.9 % (16.0-70.0); Platelet Count 252 th/mm3 (150-450); Red Blood Count 4.49 mil/mm3 (4.50-5.90); Red Cell Distribution Width 13.6 % (11.6-17.2); White Blood Count 5.4 th/mm3 (4.0-11.0)
[2018-05-31 10:49] LABS: Alanine Aminotransferase 34 U/L (12-78); Albumin 3.2 g/dL (3.4-5.0); Anion Gap 11 meq/L (5-15); Aspartate Aminotransferase 20 U/L (15-37); Blood Urea Nitrogen 7 mg/dL (7-18); Calcium 8.4 mg/dL (8.5-10.1); Carbon Dioxide 24.7 meq/L (21.0-32.0); Chloride 103 meq/L (98-107); Cholesterol 146 mg/dL (120-200); Glomerular Filtration Rate Greater Than 89 mL/min (>89); Glucose,Random 203 mg/dL (74-106); Potassium 3.7 meq/L (3.5-5.1); Sodium 139 meq/L (136-145); Triglycerides 191 mg/dL (42-150)
[2018-05-31 10:52] LABS: Alkaline Phosphatase 101 U/L (45-117); Chol/HDL Ratio 4.18 Ratio; HDL Cholesterol 34.9 mg/dL (40.0-60.0); LDL Cholesterol,Calculated 73 mg/dL (0-99); Total Protein 6.8 g/dL (6.4-8.2)
--- NOTE | 2018-05-31 14:52 | P.PNIM ---
Subjective Interval history: Significant improvement in left hemiplegia. Hypercoagulability syndrome is present by history and likely hereditary as his brother and father both had strokes right around her before the age of 40. No new complaints from this patient. Physical Exam Vital signs: Vital Signs 05/30/18 18:20 05/30/18 19:42 05/30/18 19:46 Temperature 97.9 F Pulse Rate 88 89 Respiratory Rate 16 Blood Pressure 140/92 H Pulse Oximetry 98 100 05/30/18 22:05 05/31/18 00:00 05/31/18 04:00 Temperature 97.9 F 98 F Pulse Rate 79 74 73 Respiratory Rate 20 18 18 Blood Pressure 136/85 137/96 H 101/59 L Pulse Oximetry 100 99 94 L 05/31/18 04:02 05/31/18 08:00 05/31/18 12:00 Temperature 98.0 F 98 F Pulse Rate 73 74 70 Respiratory Rate 22 20 Blood Pressure 139/83 136/85 Pulse Oximetry 96 96 Intake & Output 05/30/18 05/31/18 05/31/18 18:59 06:59 18:59 Intake Total 1000 / 1000 Balance 1000 / 1000 Weight 120.202 kg 270 kg Intake: IV 1000 / 1000 NS Inj 1,000 ML @ 70 mls/hr IV. 1000 / 1000 CONT .[id number] [facility] Rx#:[id number] Other: # Voids 2 Weight On Admission 270 kg Narrative: GENERAL: NAD, A&Ox3 HEAD: Normocephalic. NECK: Supple, trachea midline. No lymphadenopathy. EYES: No scleral icterus. No injection or drainage. CARDIOVASCULAR: Regular rate and rhythm without murmurs, gallops, or rubs. RESPIRATORY: Breath sounds equal bilaterally. No accessory muscle use. GASTROINTESTINAL: Abdomen soft, non-tender, nondistended. MUSCULOSKELETAL: No cyanosis, or edema. SKIN: Warm and dry. NEURO: Left hemiplegia Results - Labs CBC & Chem 7: 05/31/18 10:01 05/31/18 10:01 Laboratory Results - last 24 hr 05/30/18 05/30/18 05/30/18 18:17 19:45 19:45 WBC 4.7 RBC 4.82 Hgb 13.3 Hct 40.3 MCV 83.6 MCH 27.6 MCHC 33.0 RDW 13.9 Plt Count 277 MPV 7.5 Neut % (Auto) 55.6 Lymph % (Auto) 35.2 [place] % (Auto) 6.9 Eos % (Auto) 1.7 Baso % (Auto) 0.6 Neut # (Auto) 2.6 Lymph # (Auto) 1.7 [place] # (Auto) 0.3 Eos # (Auto) 0.1 Baso # (Auto) 0.0 WBC Differential . Differential Comment Auto diff final PT 10.0 INR 1.0 APTT 29.1 Sodium Potassium Chloride Carbon Dioxide Anion Gap BUN Creatinine Estimated GFR POC Glucose 259 H Random Glucose Calcium Total Bilirubin AST ALT Alkaline Phosphatase Total Creatine Kinase Troponin I Total Protein Albumin Triglycerides Cholesterol LDL Cholesterol, Calc HDL Cholesterol Cholesterol/HDL Ratio Urine Color Urine Clarity Urine pH Ur Specific [place] Urine Protein Urine Glucose (UA) Urine Ketones Urine Occult Blood Urine Nitrate Urine Bilirubin Urine Urobilinogen Ur Leukocyte Esterase Urine WBC Micro UA Comment Ur Microscopic Review Urine Culture Comments Urine Opiates Screen Ur Barbiturates Screen Ur Amphetamines Screen U Benzodiazepines Scrn Urine Cocaine Screen U Cannabinoids Screen 05/30/18 05/30/18 05/30/18 19:45 19:45 19:45 WBC RBC Hgb Hct MCV MCH MCHC RDW Plt Count MPV Neut % (Auto) Lymph % (Auto) [place] % (Auto) Eos % (Auto) Baso % (Auto) Neut # (Auto) Lymph # (Auto) [place] # (Auto) Eos # (Auto) Baso # (Auto) WBC Differential Differential Comment PT INR APTT Sodium 136 Potassium 3.7 Chloride 104 Carbon Dioxide 22.3 Anion Gap 10 BUN 9 Creatinine 0.82 Estimated GFR Greater than 89 POC Glucose Random Glucose 246 H Calcium 8.5 Total Bilirubin 0.2 AST 25 ALT 42 Alkaline Phosphatase 122 H Total Creatine Kinase 54 Troponin I Less than 0.02 L Total Protein 7.4 Albumin 3.5 Triglycerides Cholesterol LDL Cholesterol, Calc HDL Cholesterol Cholesterol/HDL Ratio Urine Color Yellow Urine Clarity Clear Urine pH 5.0 Ur Specific [place] 1.022 Urine Protein Negative Urine Glucose (UA) 500 or greater Urine Ketones Negative Urine Occult Blood Negative Urine Nitrate Negative Urine Bilirubin Negative Urine Urobilinogen Less than 2 Ur Leukocyte Esterase Negative Urine WBC 1 Micro UA Comment Culture not ind Ur Microscopic Review Not Reportable Urine Culture Comments Culture not ind Urine Opiates Screen Pos H Ur Barbiturates Screen Neg Ur Amphetamines Screen Neg U Benzodiazepines Scrn Pos H Urine Cocaine Screen Neg U Cannabinoids Screen Neg 05/30/18 05/31/18 05/31/18 22:09 10:01 10:01 WBC 5.4 RBC 4.49 L Hgb 12.7 L Hct 37.4 L MCV 83.3 MCH 28.4 MCHC 34.1 RDW 13.6 Plt Count 252 MPV 6.7 L Neut % (Auto) 66.9 Lymph % (Auto) 24.2 [place] % (Auto) 7.3 Eos % (Auto) 1.0 Baso % (Auto) 0.6 Neut # (Auto) 3.6 Lymph # (Auto) 1.3 [place] # (Auto) 0.4 Eos # (Auto) 0.1 Baso # (Auto) 0.0 WBC Differential . Differential Comment Auto diff final PT INR APTT Sodium 139 Potassium 3.7 Chloride 103 Carbon Dioxide 24.7 Anion Gap 11 BUN 7 Creatinine 0.67 Estimated GFR Greater than 89 POC Glucose 212 H Random Glucose 203 H Calcium 8.4 L Total Bilirubin 0.4 AST 20 ALT 34 Alkaline Phosphatase 101 Total Creatine Kinase Troponin I Total Protein 6.8 D Albumin 3.2 L Triglycerides 191 H Cholesterol 146 LDL Cholesterol, Calc 73 HDL Cholesterol 34.9 L Cholesterol/HDL Ratio 4.18 Urine Color Urine Clarity Urine pH Ur Specific [place] Urine Protein Urine Glucose (UA) Urine Ketones Urine Occult Blood Urine Nitrate Urine Bilirubin Urine Urobilinogen Ur Leukocyte Esterase Urine WBC Micro UA Comment Ur Microscopic Review Urine Culture Comments Urine Opiates Screen Ur Barbiturates Screen Ur Amphetamines Screen U Benzodiazepines Scrn Urine Cocaine Screen U Cannabinoids Screen 05/31/18 11:53 WBC RBC Hgb Hct MCV MCH MCHC RDW Plt Count MPV Neut % (Auto) Lymph % (Auto) [place] % (Auto) Eos % (Auto) Baso % (Auto) Neut # (Auto) Lymph # (Auto) [place] # (Auto) Eos # (Auto) Baso # (Auto) WBC Differential Differential Comment PT INR APTT Sodium Potassium Chloride Carbon Dioxide Anion Gap BUN Creatinine Estimated GFR POC Glucose 264 H Random Glucose Calcium Total Bilirubin AST ALT Alkaline Phosphatase Total Creatine Kinase Troponin I Total Protein Albumin Triglycerides Cholesterol LDL Cholesterol, Calc HDL Cholesterol Cholesterol/HDL Ratio Urine Color Urine Clarity Urine pH Ur Specific [place] Urine Protein Urine Glucose (UA) Urine Ketones Urine Occult Blood Urine Nitrate Urine Bilirubin Urine Urobilinogen Ur Leukocyte Esterase Urine WBC Micro UA Comment Ur Microscopic Review Urine Culture Comments Urine Opiates Screen Ur Barbiturates Screen Ur Amphetamines Screen U Benzodiazepines Scrn Urine Cocaine Screen U Cannabinoids Screen - Imaging Impressions Chest X-Ray 05/30/18 19:35 CONCLUSION: Minimal suspected areas of atelectasis or scarring at the bases. Head CT 05/30/18 19:35 CONCLUSION: 1. No intracranial abnormality is seen. 2. Left maxillary sinus disease. . Lumbar Spine X-Ray 05/30/18 19:37 CONCLUSION: No acute abnormality is seen. Carotid Doppler Study 05/31/18 00:00 CONCLUSION: Negative for hemodynamically significant carotid stenosis. Assessment and Plan - Assessment (1) CVA (cerebral vascular accident) Code(s): I63.9 - Cerebral infarction, unspecified Status: Acute (2) Seizure disorder Code(s): G40.909 - Epilepsy, unspecified, not intractable, without status epilepticus Status: Acute (3) H/O deep venous thrombosis Code(s): Z86.718 - Personal history of other venous thrombosis and embolism Status: Acute (4) DM (diabetes mellitus) Code(s): E11.9 - Type 2 diabetes mellitus without complications Status: Acute (5) Back pain Code(s): M54.9 - Dorsalgia, unspecified Status: Acute - Plan 43-year-old male admitted secondary to left hemiplegia suspicious for CVA CVA Left hemiplegia History of seizure disorder Determination for possibility of MRI/MRA in process Neurology following Carotid ultrasound within normal limits Continue monitoring for seizure activity Continue monitoring for improvement in left hemiplegia Continue OT Continue physical therapy Continue Keppra Hypercoagulability syndrome History of DVT History of PE Continue Eliquis Chronic back pain Continue baseline pain treatments, oxycodone Diabetes mellitus type 2 Follow blood sugars Insulin sliding scale Diabetic diet DVT prophylaxis Eliquis
--- NOTE | 2018-05-31 16:16 | ECHRPT ---
Indication: CVA/TIA CONCLUSIONS The left ventricular systolic function is normal with an estimated ejection fraction in the range of 55-6%. Normal left ventricular size. Wall thickness is normal. No regional wall motion abnormalities are present. Trace mitral valve regurgitation. There is trace tricuspid valve regurgitation. The estimated pulmonary arterial pressure is 32.1 mmHg. BP: / HR: Rhythm: Sinus MEASUREMENTS (Male / Female) Normal Values Technical Quality:Good 2D ECHO LV Diastolic Diameter PLAX 4.7 cm 4.2 - 5.9 / 3.9 - 5.3 cm LV Systolic Diameter PLAX 3.7 cm IVS Diastolic Thickness 1.0 cm 0.6 - 1.0 / 0.6 - 0.9 cm LVPW Diastolic Thickness 1.0 cm 0.6 - 1.0 / 0.6 - 0.9 cm LV Relative Wall Thickness 0.4 LVOT Diameter 2.0 cm LA Systolic Diameter LX 3.6 cm 3.0 - 4.0 / 2.7 - 3.8 cm LV Ejection Fraction MOD 4C 64.2 % LV Ejection Fraction 4C AL 65.0 % M-MODE Aortic Root Diameter MM 1.8 cm LA Systolic Diameter MM 4.0 cm LA Ao Ratio MM 2.2 AV Cusp Separation MM 2.1 cm DOPPLER AV Peak Velocity 122.0 cm/s AV Peak Gradient 6.0 mmHg LVOT Peak Velocity 93.8 cm/s LVOT Peak Gradient 3.5 mmHg AV Area Cont Eq pk 2.4 cm MV Area PHT 3.4 cm Mitral E Point Velocity 91.3 cm/s Mitral A Point Velocity 60.2 cm/s Mitral E to A Ratio 1.5 LV E' Lateral Velocity 11.5 cm/s Mitral E to LV E' Lateral Ratio 7.9 LV E' Septal Velocity 8.4 cm/s Mitral E to LV E' Septal Ratio 10.9 TR Peak Velocity 235.0 cm/s TR Peak Gradient 22.1 mmHg Right Atrial Pressure 10.0 mmHg Pulmonary Artery Systolic Pressu 32.1 mmHg Right Ventricular Systolic Press 32.1 mmHg PV Peak Velocity 92.3 cm/s PV Peak Gradient 3.4 mmHg FINDINGS LEFT VENTRICLE The left ventricular systolic function is normal with an estimated ejection fraction in the range of 55-6%. Normal left ventricular size. Wall thickness is normal. No regional wall motion abnormalities are present. RIGHT VENTRICLE Normal right ventricular size and systolic function. LEFT ATRIUM The left atrial size is normal. RIGHT ATRIUM The right atrial size is normal. ATRIAL SEPTUM Normal atrial septal thickness without atrial level shunting by limited color doppler interrogation. AORTA The aortic root and proximal ascending aorta are normal in size on limited imaging. MITRAL VALVE Structurally normal mitral valve. Trace mitral valve regurgitation. AORTIC VALVE Trileaflet aortic valve. No aortic valve stenosis or regurgitation. TRICUSPID VALVE Structurally normal tricuspid valve. There is trace tricuspid valve regurgitation. The estimated pulmonary arterial pressure is 32.1 mmHg. PULMONARY VALVE No pulmonary valve regurgitation or stenosis. VESSELS The inferior vena cava is normal in size. PERICARDIUM No pericardial effusion. Santi Taylor MD, FACC (Electronically Signed) Final Date:31 May 2018 16:15
[2018-05-31 17:03] LABS: Hemoglobin A1c 10.8 % (4.3-6.0)
[2018-05-31] MEDS: levETIRAcetam 500 MG Tablet PO SCH (20:33)
--- NOTE | 2018-05-31 20:35 | ECG ---
Date Performed: 05/30/2018 Time Performed: 18:25:24 PTAGE: 43 years EKG: Sinus rhythm NORMAL ECG PREVIOUS TRACING : 06/28/2017 17.35 Since the previous tracing, no significant change noted DOCTOR: Sarbjit Almeida Interpretating Date/Time 05/31/2018 20:33:12
[2018-06-01] MEDS ORDERED: Dextrose 50% in Water 50 ML Vial IV.PUSH PRN (08:40)
[2018-06-01] MEDS: levETIRAcetam 500 MG Tablet PO SCH ×2 (09:30→20:28)
[2018-06-01] MEDS: Senna/Docusate Sodium 8.6/50 MG Tablet PO SCH ×2 (09:36→20:27)
[2018-06-01] MEDS: Insulin NovoLOG Aspart Correctional Sugar Inj SQ SCH ×4 (10:25→21:46)
--- NOTE | 2018-06-01 10:35 | P.PNIM ---
Subjective Interval history: Blood sugars elevated overnight. Improvement in left arm function. Slight improvement in left lower leg function. No new complaints from the patient. Physical Exam Vital signs: Vital Signs 05/31/18 12:00 05/31/18 16:00 05/31/18 17:32 Temperature 98 F 98.1 F Pulse Rate 70 73 Respiratory Rate 20 20 Blood Pressure 136/85 118/70 Pulse Oximetry 96 96 96 05/31/18 20:00 05/31/18 22:16 06/01/18 00:00 Temperature 98.2 F 97.9 F Pulse Rate 79 79 Respiratory Rate 18 18 18 Blood Pressure 127/87 99/57 L Pulse Oximetry 94 L 95 06/01/18 04:00 06/01/18 08:00 Temperature 98.7 F Pulse Rate 71 82 Respiratory Rate 20 Blood Pressure 115/67 Pulse Oximetry 95 Intake & Output 05/31/18 06/01/18 06/01/18 18:59 06:59 18:59 Intake Total 860 / 860 860 / 860 Balance 860 / 860 860 / 860 Weight 270 kg Intake: Oral 860 / 860 860 / 860 Other: # Voids 4 4 Date of Last Bowel Movement 05/31/18 # Bowel Movements 1 Narrative: GENERAL: NAD, A&Ox3 HEAD: Normocephalic. NECK: Supple, trachea midline. No lymphadenopathy. EYES: No scleral icterus. No injection or drainage. CARDIOVASCULAR: Regular rate and rhythm without murmurs, gallops, or rubs. RESPIRATORY: Breath sounds equal bilaterally. No accessory muscle use. GASTROINTESTINAL: Abdomen soft, non-tender, nondistended. MUSCULOSKELETAL: No cyanosis, or edema. SKIN: Warm and dry. NEURO: Left hemiplegia Results - Labs CBC & Chem 7: 05/31/18 10:01 05/31/18 10:01 Laboratory Results - last 24 hr 05/31/18 05/31/18 05/31/18 10:01 10:01 11:53 Sodium 139 Potassium 3.7 Chloride 103 Carbon Dioxide 24.7 Anion Gap 11 BUN 7 Creatinine 0.67 Estimated GFR Greater than 89 POC Glucose 264 H Random Glucose 203 H Hemoglobin A1c 10.8 H Calcium 8.4 L Total Bilirubin 0.4 AST 20 ALT 34 Alkaline Phosphatase 101 Total Protein 6.8 D Albumin 3.2 L Triglycerides 191 H Cholesterol 146 LDL Cholesterol, Calc 73 HDL Cholesterol 34.9 L Cholesterol/HDL Ratio 4.18 05/31/18 05/31/18 06/01/18 17:18 20:23 09:27 Sodium Potassium Chloride Carbon Dioxide Anion Gap BUN Creatinine Estimated GFR POC Glucose 210 H 418 H 268 H Random Glucose Hemoglobin A1c Calcium Total Bilirubin AST ALT Alkaline Phosphatase Total Protein Albumin Triglycerides Cholesterol LDL Cholesterol, Calc HDL Cholesterol Cholesterol/HDL Ratio Assessment and Plan - Assessment (1) CVA (cerebral vascular accident) Code(s): I63.9 - Cerebral infarction, unspecified Status: Acute (2) Seizure disorder Code(s): G40.909 - Epilepsy, unspecified, not intractable, without status epilepticus Status: Acute (3) H/O deep venous thrombosis Code(s): Z86.718 - Personal history of other venous thrombosis and embolism Status: Acute (4) DM (diabetes mellitus) Code(s): E11.9 - Type 2 diabetes mellitus without complications Status: Acute (5) Back pain Code(s): M54.9 - Dorsalgia, unspecified Status: Acute - Plan 43-year-old male admitted secondary to left hemiplegia suspicious for CVA NPH provided for coverage of insulin through today and the patient's nightly dosing of Lantus resumed tonight. Continue to monitor blood sugars. Continue physical therapy. CVA Left hemiplegia History of seizure disorder Determination for possibility of MRI/MRA in process Neurology following Carotid ultrasound within normal limits Continue monitoring for seizure activity Continue monitoring for improvement in left hemiplegia Continue OT Continue physical therapy Continue Keppra Hypercoagulability syndrome History of DVT History of PE Continue Eliquis Chronic back pain Continue baseline pain treatments, oxycodone Diabetes mellitus type 2 Follow blood sugars Insulin sliding scale Diabetic diet DVT prophylaxis Eliquis
--- NOTE | 2018-06-01 11:11 | P.PN ---
Subjective Interval history: still weak on left ?sz yest however keppra was increased to 750mg bid will get eeg. Physical Exam Vital signs: Vital Signs 05/31/18 12:00 05/31/18 16:00 05/31/18 17:32 Temperature 98 F 98.1 F Pulse Rate 70 73 Respiratory Rate 20 20 Blood Pressure 136/85 118/70 Pulse Oximetry 96 96 96 05/31/18 20:00 05/31/18 22:16 06/01/18 00:00 Temperature 98.2 F 97.9 F Pulse Rate 79 79 Respiratory Rate 18 18 18 Blood Pressure 127/87 99/57 L Pulse Oximetry 94 L 95 06/01/18 04:00 06/01/18 08:00 Temperature 98.7 F Pulse Rate 71 82 Respiratory Rate 20 Blood Pressure 115/67 Pulse Oximetry 95 Intake & Output 05/31/18 06/01/18 06/01/18 18:59 06:59 18:59 Intake Total 860 / 860 860 / 860 Balance 860 / 860 860 / 860 Weight 270 kg Intake: Oral 860 / 860 860 / 860 Other: # Voids 4 4 Date of Last Bowel Movement 05/31/18 # Bowel Movements 1 Narrative: awake alert left eye blurred vision can see larger number right lower area of tv. left sided hemiparesis sensory patchy dtrs trace toes w/d gait per pt Results - Labs CBC & Chem 7: 05/31/18 10:01 05/31/18 10:01 Laboratory Results - last 24 hr 05/31/18 05/31/18 05/31/18 10:01 11:53 17:18 POC Glucose 264 H 210 H Hemoglobin A1c 10.8 H 05/31/18 06/01/18 20:23 09:27 POC Glucose 418 H 268 H Hemoglobin A1c - Imaging cus-neg echo ef 55-60% pending cta cow eeg pending Assessment and Plan - Assessment (1) CVA (cerebral vascular accident) Code(s): I63.9 - Cerebral infarction, unspecified Status: Acute (2) Seizure disorder Code(s): G40.909 - Epilepsy, unspecified, not intractable, without status epilepticus Status: Acute - Plan eeg sz precautions keppra 750mg bid f/u ct brain today or in am ok cta cow cont eliquis 5mg bid-per pt he was out of it recently. pt-ot-rehab low dose statin ldl 73 dm hga1c 10.8 poor control needs education. [facility] [place] not clear if mri compatible and pt does not have a card so will not order mri. bp control
--- NOTE | 2018-06-01 11:40 | CT ---
EXAM DATE: 06/01/2018 11:20 AM EDT AGE/SEX: 43 years / Male INDICATIONS: General weakness. CLINICAL DATA: This is the patient's initial encounter. Patient reports that signs and symptoms have been present for 1 day and indicates a pain score of 0/10. MEDICAL/SURGICAL HISTORY: Diabetes. Seizures. DVT Pacemaker. RADIATION DOSE: 52.83 CTDI (mGy) COMPARISON: [facility] [place], CTA HEAD W CONTRAST W 3D, 06/01/2018. [facility] [place], CT HEAD W/O CONTRAST, 05/30/2018. . TECHNIQUE: CT of the head without contrast. Using automated exposure control and adjustment of the mA and/or kV according to patient size, radiation dose was kept as low as reasonably achievable to ob tain optimal diagnostic quality images. DICOM format image data is available electronically for revi ew and comparison. FINDINGS: Cerebrum: The ventricles are normal for age. No evidence of midline shift, mass lesion, hemorrhage or acute infarction. No extraaxial fluid collections are seen. Posterior Fossa: The cerebellum and brainstem are intact. The 4th ventricle is midline. The cerebe llopontine angle is unremarkable. Extracranial: The visualized portion of the orbits is intact. Skull: The calvaria is intact. No evidence of skull fracture. There is an air-fluid level identifie d within the left maxillary sinus. CONCLUSION: 1. Left sinus disease. No intracranial abnormality identified. . Electronically signed by: Britta Dominguez MD 06/01/2018 11:39 AM EDT
--- NOTE | 2018-06-01 12:20 | CT ---
EXAM DATE: 06/01/2018 11:04 AM EDT AGE/SEX: 43 years / Male INDICATIONS: General weakness. CLINICAL DATA: This is the patient's initial encounter. Patient reports that signs and symptoms have been present for 1 day and indicates a pain score of 0/10. MEDICAL/SURGICAL HISTORY: Diabetes. Seizures. DVT Pacemaker. RADIATION DOSE: 10.75 CTDI (mGy) ; Combined studies COMPARISON: [facility] [place], CT HEAD W/O CONTRAST, 06/01/2018. . TECHNIQUE: Volumetric scanning was performed using a multi-row detector CT scanner during bolus infu mariana of 95 ml Omnipaque 350 (iohexol) nonionic water-soluble contrast as a cumulative dose for multi ple exams. The data was post processed with a variety of visualization algorithms including full vo lume maximum intensity projection, multi-planar sliding thin slab reformation, curved planar reformat ion, and surface rendering techniques. Using automated exposure control and adjustment of the mA and /or kV according to patient size, radiation dose was kept as low as reasonably achievable to obtain o ptimal diagnostic quality images. DICOM format image data is available electronically for review and comparison. FINDINGS: Anterior Circulation: Intracranial Carotid Arteries: Patent. PADMAJA: There is no evidence for aneurysm, vessel truncation or stenosis, and no evidence for vascular m alformation. MCA: There is no evidence for aneurysm, vessel truncation or stenosis, and no evidence for vascular m alformation. Posterior Circulation: Distal Vertebral Arteries: Distal Vertebral arteries are slightly asymmetrical with a dominant left v ertebral artery. Basilar Artery: There is no evidence for aneurysm, vessel truncation or stenosis, and no evidence for vascular malformation. CELLAR PUMPER and Cerebellar Branches: There is no evidence for aneurysm, vessel truncation or stenosis, and no evidence for vascular malformation. CONCLUSION: 1. Unremarkable head CTA examination. Specifically, no evidence for large vessel occlusion. Electronically signed by: Wander Yu MD 06/01/2018 12:19 PM EDT
--- NOTE | 2018-06-01 12:22 | CT ---
EXAM DATE: 06/01/2018 11:04 AM EDT AGE/SEX: 43 years / Male INDICATIONS: General weakness. CLINICAL DATA: This is the patient's initial encounter. Patient reports that signs and symptoms have been present for 1 day and indicates a pain score of 0/10. MEDICAL/SURGICAL HISTORY: Diabetes. Seizures. DVT Pacemaker. RADIATION DOSE: 10.75 CTDI (mGy) ; Combined studies COMPARISON: [facility] [place], CTA CAROTID ARTERIES W 3D RECON, 06/28/2017. [facility] [place], CT CERVICAL SPINE W/O CONTRAS T, 04/09/2017. . TECHNIQUE: Volumetric scanning was performed using a multirow detector CT scanner during bolus infus ion of 95 ml Omnipaque 350 (iohexol) nonionic water-soluble contrast as a cumulative dose for multip le exams. The data was postprocessed with a variety of visualization algorithms including full-volu me maximum intensity projection, multiplanar sliding thin-slab reformation, curved-planar reformation , and surface-rendering techniques. Using automated exposure control and adjustment of the mA and/or kV according to patient size, radiation dose was kept as low as reasonably achievable to obtain opti mal diagnostic quality images. DICOM format image data is available electronically for review and co mparison. FINDINGS: Aortic Arch: There is a three-vessel origin of the great vessels from the aorta. No evidence of ost ial narrowing Right Carotid: The common carotid artery is intact. The carotid bulb has a normal configuration wit hout ulceration or narrowing. The internal carotid artery lumen is smooth without stenosis. The ext ernal carotid artery is intact. Left Carotid: The common carotid artery is intact. The carotid bulb has a normal configuration with out ulceration or narrowing. The internal carotid artery lumen is smooth without stenosis. The exte rnal carotid artery is intact. Vertebrals: The left vertebral artery is dominant. No stenotic lesions are seen. Percent stenosis is calculated using the diameter of the stenotic region over the diameter of the nor mal distal internal carotid artery. CONCLUSION: 1. Negative CTA Carotid. Electronically signed by: Britta Dominguez MD 06/01/2018 12:20 PM EDT
--- NOTE | 2018-06-01 20:03 | MG ---
cc: Nadira Acosta MD EEG NUMBER: [id number] Hyperventilation and photic done noted to be sleepy, history of seizures, has a history of heart disease, pacemaker, on Keppra 750 mg b.i.d., came in with a stroke. The patient has overall background of 7-8 Hz. Photic stimulation was started at the beginning. There is a posterior driving response. Overall, symmetrical background otherwise. Hyperventilation is started towards the middle of the study. Encouraged fair effort overall. No attenuation during that portion. Patient is alert. IMPRESSION: Overall normal appearing electroencephalogram with some slowing at the beginning may be due to somnolence, but no evidence of any epileptic activity. Clinical correlation. Nadira Acosta MD DF/ct , 07:15 PM , 07:21 PM
[2018-06-01] MEDS: Insulin Detemir Inj 1,000 UNIT/10 ML Vial SQ SCH (21:45)
[2018-06-02] MEDS: levETIRAcetam 500 MG Tablet PO SCH ×2 (08:55→21:43)
[2018-06-02] MEDS: Insulin NovoLOG Aspart Correctional Sugar Inj SQ SCH ×5 (09:40→21:46)
[2018-06-02] MEDS: Senna/Docusate Sodium 8.6/50 MG Tablet PO SCH ×2 (09:41→21:45)
--- NOTE | 2018-06-02 14:22 | P.PNIM ---
Subjective Interval history: Patient reports trauma of the buccal mucosa last night. He feels he might be having seizures at night. If this is true, the etiology would be related to his recent CVA. He still has some left hemiplegia. He is also complaining of changes in memory and difficulty finding words (present since the onset of CVA) , but the symptoms are mild. Physical Exam Vital signs: Vital Signs 06/01/18 16:00 06/01/18 17:51 06/01/18 20:00 Temperature 98.5 F 98.3 F Pulse Rate 84 88 Respiratory Rate 20 17 Blood Pressure 115/72 114/68 Pulse Oximetry 96 96 96 06/01/18 21:34 06/02/18 00:00 06/02/18 04:00 Temperature 97.8 F 98 F Pulse Rate 86 84 Respiratory Rate 17 17 16 Blood Pressure 118/74 115/70 Pulse Oximetry 96 96 06/02/18 08:00 06/02/18 09:54 06/02/18 12:00 Temperature 98.1 F 98.2 F Pulse Rate 79 80 Respiratory Rate 18 20 Blood Pressure 115/71 125/76 Pulse Oximetry 93 L 93 L 98 Intake & Output 06/01/18 06/02/18 06/02/18 18:59 06:59 18:59 Intake Total 860 / 860 442 / 442 Balance 860 / 860 442 / 442 Weight 128.5 kg Intake: Oral 860 / 860 442 / 442 Other: # Voids 4 Date of Last Bowel Movement 05/31/18 05/31/18 05/31/18 # Bowel Movements 1 Narrative: GENERAL: NAD, A&Ox3 HEAD: Normocephalic. NECK: Supple, trachea midline. No lymphadenopathy. EYES: No scleral icterus. No injection or drainage. CARDIOVASCULAR: Regular rate and rhythm without murmurs, gallops, or rubs. RESPIRATORY: Breath sounds equal bilaterally. No accessory muscle use. GASTROINTESTINAL: Abdomen soft, non-tender, nondistended. MUSCULOSKELETAL: No cyanosis, or edema. SKIN: Warm and dry. NEURO: No focal neurological deficits. Partial left hemiplegia. Results - Labs CBC & Chem 7: 05/31/18 10:01 05/31/18 10:01 Laboratory Results - last 24 hr 06/01/18 06/01/18 06/02/18 16:21 21:36 07:15 POC Glucose 269 H 279 H 259 H 06/02/18 13:14 POC Glucose 226 H Assessment and Plan - Assessment (1) CVA (cerebral vascular accident) Code(s): I63.9 - Cerebral infarction, unspecified Status: Acute (2) Seizure disorder Code(s): G40.909 - Epilepsy, unspecified, not intractable, without status epilepticus Status: Acute (3) H/O deep venous thrombosis Code(s): Z86.718 - Personal history of other venous thrombosis and embolism Status: Acute (4) DM (diabetes mellitus) Code(s): E11.9 - Type 2 diabetes mellitus without complications Status: Acute (5) Back pain Code(s): M54.9 - Dorsalgia, unspecified Status: Acute - Plan 43-year-old male admitted secondary to left hemiplegia suspicious for CVA Blood sugars improved. Continue monitoring for seizure activity. Continue physical therapy. Continue occupational therapy. CVA Left hemiplegia History of seizure disorder Determination for possibility of MRI/MRA in process Neurology following Carotid ultrasound within normal limits Continue monitoring for seizure activity Continue monitoring for improvement in left hemiplegia Continue OT Continue physical therapy Continue Keppra Hypercoagulability syndrome History of DVT History of PE Continue Eliquis Chronic back pain Continue baseline pain treatments, oxycodone Diabetes mellitus type 2 Follow blood sugars Insulin sliding scale Diabetic diet DVT prophylaxis Eliquis
[2018-06-02] MEDS: Insulin Detemir Inj 1,000 UNIT/10 ML Vial SQ SCH (21:46)
[2018-06-03] MEDS: Senna/Docusate Sodium 8.6/50 MG Tablet PO SCH ×2 (10:11→21:19)
[2018-06-03] MEDS: Insulin NovoLOG Aspart Correctional Sugar Inj SQ SCH ×4 (10:12→22:33)
[2018-06-03] MEDS: levETIRAcetam 500 MG Tablet PO SCH ×2 (10:12→22:21)
--- NOTE | 2018-06-03 10:35 | P.PNIM ---
Subjective Interval history: The patient was resting comfortably in bed. He states he has weakness on the left side of his body and he also has numbness there. He believes his pacemaker is able to undergo an MRI if deactivated. He still has difficulty with his memory. He is open to going to inpatient rehabilitation. Physical Exam Vital signs: Vital Signs 06/02/18 12:00 06/02/18 16:00 06/02/18 19:46 Temperature 98.2 F 98.4 F Pulse Rate 80 78 Respiratory Rate 20 16 16 Blood Pressure 125/76 111/71 Pulse Oximetry 98 93 L 06/02/18 20:00 06/02/18 20:31 06/03/18 00:00 Temperature 98.3 F 98.4 F Pulse Rate 78 74 Respiratory Rate 17 16 Blood Pressure 111/64 115/66 Pulse Oximetry 97 98 97 06/03/18 04:00 06/03/18 08:00 06/03/18 09:11 Temperature 98.2 F 98.2 F Pulse Rate 77 78 Respiratory Rate 16 16 Blood Pressure 114/65 80/52 L 96/70 L Pulse Oximetry 96 94 L Intake & Output 06/02/18 06/03/18 06/03/18 18:59 06:59 18:59 Output Total 500 / 500 Balance -500 / -500 Weight 128.7 kg Output: Urine 500 / 500 Other: Date of Last Bowel Movement 05/31/18 06/02/18 Narrative: GENERAL: NAD, A&Ox3. HEAD: Normocephalic. NECK: Supple, trachea midline. No lymphadenopathy. EYES: No scleral icterus. No injection or drainage. CARDIOVASCULAR: Regular rate and rhythm without murmurs, gallops, or rubs. RESPIRATORY: Breath sounds equal bilaterally. No accessory muscle use. GASTROINTESTINAL: Abdomen soft, non-tender, nondistended. MUSCULOSKELETAL: No cyanosis, or edema. SKIN: Warm and dry. NEURO: Weakness on left side. Paresthesia in lower and upper left extremities. Difficulty with memory. Results - Labs CBC & Chem 7: 05/31/18 10:01 05/31/18 10:01 Laboratory Results - last 24 hr 06/02/18 06/02/18 06/02/18 13:14 17:27 20:19 POC Glucose 226 H 229 H 400 H 06/03/18 08:19 POC Glucose 166 H Assessment and Plan - Assessment (1) CVA (cerebral vascular accident) Code(s): I63.9 - Cerebral infarction, unspecified Status: Acute (2) Seizure disorder Code(s): G40.909 - Epilepsy, unspecified, not intractable, without status epilepticus Status: Acute (3) H/O deep venous thrombosis Code(s): Z86.718 - Personal history of other venous thrombosis and embolism Status: Acute (4) DM (diabetes mellitus) Code(s): E11.9 - Type 2 diabetes mellitus without complications Status: Acute (5) Back pain Code(s): M54.9 - Dorsalgia, unspecified Status: Acute - Plan 43-year-old male admitted secondary to left hemiplegia suspicious for CVA CVA Left hemiplegia History of seizure disorder Neurology following Carotid ultrasound within normal limits Continue monitoring for seizure activity. EEG negative. Continue monitoring for improvement in left hemiplegia. Continue OT and physical therapy. -Continue Keppra per neuro. -case management consult for rehab placement. -interrogate pacemaker. -consider MRI if pacemaker allows. Hypercoagulability syndrome History of DVT History of PE -Continue Eliquis. Chronic back pain -Continue baseline pain treatments, oxycodone Diabetes mellitus type 2 Follow blood sugars. Improved. Insulin sliding scale and long-acting insulin. Diabetic diet DVT prophylaxis Eliquis Discharge Planning: Will likely need rehab
[2018-06-03] MEDS: Insulin Detemir Inj 1,000 UNIT/10 ML Vial SQ SCH (22:23)
[2018-06-04 07:14] LABS: Hematocrit 36.7 % (39.0-51.0); Hemoglobin 12.4 gm/dL (13.0-17.0); Mean Corpuscular HGB Conc 33.8 % (32.0-36.0); Mean Corpuscular Hemoglobin 27.7 pg (27.0-34.0); Mean Platelet Volume 7.3 fL (7.0-11.0); Platelet Count 222 th/mm3 (150-450); Red Blood Count 4.48 mil/mm3 (4.50-5.90); Red Cell Distribution Width 13.8 % (11.6-17.2); White Blood Count 5.4 th/mm3 (4.0-11.0)
[2018-06-04 07:52] LABS: Anion Gap 9 meq/L (5-15); Blood Urea Nitrogen 8 mg/dL (7-18); Calcium 8.8 mg/dL (8.5-10.1); Carbon Dioxide 25.2 meq/L (21.0-32.0); Chloride 101 meq/L (98-107); Glomerular Filtration Rate Greater Than 89 mL/min (>89); Glucose,Random 292 mg/dL (74-106); Potassium 4.3 meq/L (3.5-5.1); Sodium 135 meq/L (136-145)
[2018-06-04] MEDS: Senna/Docusate Sodium 8.6/50 MG Tablet PO SCH (08:22)
[2018-06-04] MEDS: levETIRAcetam 500 MG Tablet PO SCH (08:22)
[2018-06-04] MEDS: Insulin NovoLOG Aspart Correctional Sugar Inj SQ SCH ×3 (08:23→17:00)
[2018-06-04 09:53] VITALS: RESP 18
--- NOTE | 2018-06-04 11:19 | P.PNIM ---
Subjective Interval history: The patient stated that he had another episode where he bit the inside of his mouth overnight. He currently feels well. He has been ambulating. He requests a regular diet. He would like to know if he is going to inpatient rehabilitation. Physical Exam Vital signs: Vital Signs 06/03/18 12:00 06/03/18 16:00 06/03/18 20:00 Temperature 98.0 F 98.1 F 98.0 F Pulse Rate 81 77 73 Respiratory Rate 14 18 20 Blood Pressure 109/75 91/53 L 111/56 L Pulse Oximetry 93 L 94 L 96 06/04/18 00:00 06/04/18 04:00 06/04/18 08:00 Temperature 97.7 F 97.8 F 98.2 F Pulse Rate 88 87 80 Respiratory Rate 20 20 18 Blood Pressure 114/60 105/68 97/57 L Pulse Oximetry 97 97 94 L Intake & Output 06/03/18 06/04/18 06/04/18 18:59 06:59 18:59 Intake Total 980 / 980 Balance 980 / 980 Weight 129 kg Intake: Oral 980 / 980 Other: # Voids 4 4 Date of Last Bowel Movement 06/02/18 # Bowel Movements 1 Narrative: GENERAL: NAD. HEAD: Normocephalic. NECK: Supple, trachea midline. No lymphadenopathy. EYES: No scleral icterus. No injection or drainage. CARDIOVASCULAR: Regular rate and rhythm without murmurs, gallops, or rubs. RESPIRATORY: Breath sounds equal bilaterally. No accessory muscle use. GASTROINTESTINAL: Abdomen soft, non-tender, nondistended. MUSCULOSKELETAL: No cyanosis, 1+ edema. SKIN: Warm and dry. NEURO: Weakness on left side. Paresthesia in lower and upper left extremities. Difficulty with memory. Results - Labs CBC & Chem 7: 06/04/18 06:34 06/04/18 06:34 Laboratory Results - last 24 hr 06/03/18 06/03/18 06/03/18 12:03 17:07 22:28 WBC RBC Hgb Hct MCV MCH MCHC RDW Plt Count MPV Sodium Potassium Chloride Carbon Dioxide Anion Gap BUN Creatinine Estimated GFR POC Glucose 278 H 259 H 261 H Random Glucose Calcium Magnesium 06/04/18 06/04/18 06/04/18 06:34 06:34 07:44 WBC 5.4 RBC 4.48 L Hgb 12.4 L Hct 36.7 L MCV 82.0 MCH 27.7 MCHC 33.8 RDW 13.8 Plt Count 222 MPV 7.3 Sodium 135 L Potassium 4.3 Chloride 101 Carbon Dioxide 25.2 Anion Gap 9 BUN 8 Creatinine 0.77 Estimated GFR Greater than 89 POC Glucose 286 H Random Glucose 292 H Calcium 8.8 Magnesium 2.0 Assessment and Plan - Assessment (1) CVA (cerebral vascular accident) Code(s): I63.9 - Cerebral infarction, unspecified Status: Acute (2) Seizure disorder Code(s): G40.909 - Epilepsy, unspecified, not intractable, without status epilepticus Status: Acute (3) H/O deep venous thrombosis Code(s): Z86.718 - Personal history of other venous thrombosis and embolism Status: Acute (4) DM (diabetes mellitus) Code(s): E11.9 - Type 2 diabetes mellitus without complications Status: Acute (5) Back pain Code(s): M54.9 - Dorsalgia, unspecified Status: Acute - Plan 43-year-old male admitted secondary to left hemiplegia suspicious for CVA CVA Left hemiplegia History of seizure disorder Neurology following Imaging negative. Carotid ultrasound within normal limits. EEG negative. -Continue monitoring for seizure activity. -Continue OT and physical therapy. -Continue Keppra per neuro. -case management consult for rehab placement. -interrogate pacemaker. Hypercoagulability syndrome History of DVT History of PE -Continue Eliquis. Chronic back pain -Continue baseline pain treatments, oxycodone. Diabetes mellitus type 2 -Follow blood sugars. -Insulin sliding scale and long-acting insulin. DVT prophylaxis Eliquis Discharge Planning: D/c to rehab if accepted
[2018-06-04 16:19] VITALS: BP 103/63; PULSE 88; TEMP 98.3; O2SAT 95
--- NOTE | 2018-06-04 17:12 | P.DCO ---
- Diagnosis (1) Seizure disorder Status: Acute (2) Back pain Status: Acute - Physical Therapy Order: Evaluate and treat, Improve ambulation, Strength and gait training - Occupational Therapy Order: Evaluate and treat, Improve ADL, Gross motor coordination, Fine motor coordination - Home Health Nursing Order: Medical education, Signs/symptoms of disease process, Diabetic education - Case Management Consult No - Certification I have seen patient Alex Sanchez on 06/04/18. My clinical findings support the need for the requested home health care services because: Limited mobility due to disease progression, Limited ability to care for self I certify that my clinical findings support that this patient is homebound because: Unsteady gait/balance
--- NOTE | 2018-06-04 17:15 | P.DS ---
Date of admission: 05/30/18 21:15 Primary care physician: No Primary Care Physician Anticipated date of discharge: 06/04/18 Brief History from admission: This is a 43-year-old male with a PMH of HTN, Hyperlipidemia, Pacemaker, Seizure Disorder, DM, h/o DVT/PE and Chronic Back Pain who was brought to the ER for left-sided weakness. Pt reports he woke up this morning at 5am and felt "unsteady" w/ fall, believes he also had associated slurred speech at that time. No head trauma or LOC, reports severe back pain, 8/10, non-radiating. States he went back to bed and woke up at 9am w/ persistent symptoms in addition left eye blurriness and left upper and lower extremity weakness. LUE weakness improved, however LLE persists. On Eliquis for h/o DVT/PE, however off medications x2 months since he has no PCP to refill medications. Also on Keppra 500mg bid, obtains scrips from Pain Management doc, last seizure approx 5 -6 yrs ago, but reports "small seizures", approx 6 episodes in the last 1mo, states he "stares blankly and I go out of it". No recent changes to medications. States "I know I didn't have a seizure" today. On arrival, BP 140 /92, HR 88, O2 sat 98% on RA, Afebrile. CBC unremarkable. INR 1.0. Chemistry unremarkable except for BS 246. Troponin negative. UA negative. Urine Drug Screen positive for Opiates and Benzos. CT Head with no acute findings. CXR atelectasis at bases. L-spine X-ray no acute abnormalities. DS: Diagnosis - Discharge Diagnosis (1) Seizure disorder Status: Acute (2) Back pain Status: Acute (3) CVA (cerebral vascular accident) Status: Acute (4) H/O deep venous thrombosis Status: Acute (5) DM (diabetes mellitus) Status: Acute DS: Medications - Discharge Medications Prescriptions: levetiracetam [Keppra] 750 mg PO BID 30 Days #90 tab pravastatin 40 mg PO HS #30 tab DS: Summary Hospital Course: Hemiplegia/ Seizure disorder Left hemiplegia noted. Neurology was consulted. Imaging negative. Carotid ultrasound within normal limits. EEG negative. The pt continued to work with OT and physical therapy. Keppra was increased per neurology. The pt continued to do well and became more ambulatory throughout the hospitalization. He will follow up with neurology as an outpt. He was continued on Eliquis. He received his chronic pain medications. We managed his diabetes with insulin. His lisinopril was discontinued secondary to hypotension. Arrangements were made to interrogate his pacemaker. He was monitored on telemetry. He will follow up with his PCP. - Time Spent with Patient Total time spent providing and/or coordinating discharge services: Less than 30 minutes - Quality: VTE Deep Vein Thrombosis/Pulmonary Embolism Present on Admission: Yes Exam Vital signs: Vital Signs 06/03/18 20:00 06/04/18 00:00 06/04/18 04:00 Temperature 98.0 F 97.7 F 97.8 F Pulse Rate 73 88 87 Respiratory Rate 20 20 20 Blood Pressure 111/56 L 114/60 105/68 Pulse Oximetry 96 97 97 06/04/18 08:00 06/04/18 12:00 06/04/18 16:00 Temperature 98.2 F 98.1 F 98.3 F Pulse Rate 80 96 H 88 Respiratory Rate 18 18 18 Blood Pressure 97/57 L 126/69 103/63 Pulse Oximetry 94 L 98 95 Intake & Output 06/03/18 06/04/18 06/04/18 18:59 06:59 18:59 Intake Total 980 / 980 Balance 980 / 980 Weight 129 kg Intake: Oral 980 / 980 Other: # Voids 4 4 Date of Last Bowel Movement 06/02/18 06/02/18 # Bowel Movements 1 Narrative: GENERAL: NAD. HEAD: Normocephalic. NECK: Supple, trachea midline. No lymphadenopathy. EYES: No scleral icterus. No injection or drainage. CARDIOVASCULAR: Regular rate and rhythm without murmurs, gallops, or rubs. RESPIRATORY: Breath sounds equal bilaterally. No accessory muscle use. GASTROINTESTINAL: Abdomen soft, non-tender, nondistended. MUSCULOSKELETAL: No cyanosis, 1+ edema. SKIN: Warm and dry. NEURO: Weakness on left side. Paresthesia in lower and upper left extremities. Difficulty with memory. Results Procedures completed during hospitalization: None Labs on day of discharge: Labs from last 24 hours 06/04/18 06/04/18 06/04/18 17:09 13:37 07:44 WBC RBC Hgb Hct MCV MCH MCHC RDW Plt Count MPV Sodium Potassium Chloride Carbon Dioxide Anion Gap BUN Creatinine Estimated GFR POC Glucose 328 H 281 H 286 H Random Glucose Calcium Magnesium 06/04/18 06/04/18 06/03/18 06:34 06:34 22:28 WBC 5.4 RBC 4.48 L Hgb 12.4 L Hct 36.7 L MCV 82.0 MCH 27.7 MCHC 33.8 RDW 13.8 Plt Count 222 MPV 7.3 Sodium 135 L Potassium 4.3 Chloride 101 Carbon Dioxide 25.2 Anion Gap 9 BUN 8 Creatinine 0.77 Estimated GFR Greater than 89 POC Glucose 261 H Random Glucose 292 H Calcium 8.8 Magnesium 2.0 - Impressions ITS Impressions Chest X-Ray 05/30/18 19:35 CONCLUSION: Minimal suspected areas of atelectasis or scarring at the bases. Lumbar Spine X-Ray 05/30/18 19:37 CONCLUSION: No acute abnormality is seen. Carotid Doppler Study 05/31/18 00:00 CONCLUSION: Negative for hemodynamically significant carotid stenosis. Head CT 06/01/18 00:00 CONCLUSION: 1. Left sinus disease. No intracranial abnormality identified. . Head CTA 06/01/18 00:00 CONCLUSION: 1. Unremarkable head CTA examination. Specifically, no evidence for large vessel occlusion. Neck CTA 06/01/18 00:00 CONCLUSION: 1. Negative CTA Carotid. Discharge Plan - Discharge Disposition Patient Disposition: /[facility] Service - Discharge Condition Condition: Stable - Discharge Order Discharge Orders: Discharge Order (Routine); Ordered 06/04/18 Ordered By: Arnaud Meléndez - Discharge Details Anticipated Discharge Date: 06/04/18 - Physicians Team Primary Care Provider: Primary Care Soraida Quiroz Attending Provider: Arnaud Meléndez Other Providers: Nadira Acosta MD
== END 2018-06-04 18:29 | disposition home health service (06) ==
LOC: NEPC 18:03 → NEDA 21:15 → N05 22:10
PROVIDERS: ADMIT Hospitalist; ATTEND Hospitalist